=== PATIENT | female | born 1970 | race Caucasian/White ===

== ENCOUNTER 2016-09-13 14:11 | Emergency (ER) | payer OTHER ==
[~2016-09-13 14:11] MED LIST: ACIDOPHILUS1 CAP PO; ADVAIR 500-501 EACH INH; ADVAIR DISKUS1 UNIT INH; ALBUTEROL2.5 MG/3 M INH/SOL; CEFTIN 250 #201 PAC PO; CEFTIN500 M1 PO; CEPHALEXIN500 M1 PO; CEPHALEXIN500 MG PO; CIPRO500 M1 PO; CLARITIN10 MG PO; CLEOCIN HCL300 MG PO; CLINDAMYCIN HC150 MG PO; CLINDAMYCIN HY300 MG PO; CLINDAMYCIN150 MG PO; DIAMOX PO; DIAMOX125 MG PO; ENDOCET 325 MG-1 TA1 PO; ERYTHROMYCIN500 MG PO; FUROSEMIDE20 MG PO; FUROSEMIDE40 MG PO; K-DUR 20MEQ TA20 MEQ PO; KEFLEX500 MG PO; LASIX20 M1 PO; LASIX20 MG PO; LASIX40 M1 PO; LASIX40 MG PO; LASIX80 MG PO; LEVALBUTER0.63 MG/1 INH; LEVOFLOXACIN500 MG PO; LOTRIMIN1% TOP; MEDROL4 M2 PO; MEDROL4 MG PO; MOTRIN 600 MG600 MG PO; MOTRIN600 MG PO; MOTRIN800 MG PO; NYSTATIN15 G1 TOP; Oxygen NAS; PREDNISONE 10MG10 M1 PO; PREDNISONE 20MG20 MG PO; PREDNISONE10 MG PO; PREDNISONE50 MG PO; PRILOSEC 20MG C20 MG PO; PROVENTIL HFA6.7 GM INH; PROVENTIL0.09 MG/A1 INH; ROBITUSSIN COU237 ML PO; TRAMADOL HCL50 M1 PO; TYLENOL TAB 32325 MG PO; VESICARE 10MG10 MG PO; VESICARE10 MG PO; VICODIN5-300 PO; XARELTO STARTER20 MG PO; XARELTO20 M2 PO; XARELTO20 MG PO; ZOFRAN 4 MG TABL4 MG PO; [UNRECOGNIZED DRUG - REMARK] TOP
--- NOTE | 2016-09-13 14:21 | ED DYSPNEA/ASTHMA COMPLAINT ---
History of Present Illness General Chief Complaint: Wheezing/Asthma Stated Complaint: PT IS HAVING ASTHMA PROBLEM Source: patient, old records Exam Limitations: no limitations Vital Signs & Intake/Output Vital Signs & Intake/Output Vital Signs Date Time Temp Pulse Resp B/P Pulse O2 O2 Flow FiO2 Ox Delivery Rate 09/13 1643 92 Room Air 09/13 1613 Nasal 2.0L Cannula 09/13 1545 96.9 110 22 133/69 87 Room Air 09/13 1452 97 Nasal 2.5L Cannula 09/13 1417 97.9 116 22 102/69 90 Room Air Allergies Coded Allergies: cat dander (Severe, DYSPNEA 07/17/16) dog dander (DYSPNEA 07/17/16) grass pollen (DIFFICULTY BREATHING 07/17/16) mold (DYSPNEA 07/17/16) ragweed pollen (DYSPNEA 07/17/16) tree and shrub pollen (DIFFICULTY BREATHING 07/17/16) amoxicillin (From Augmentin) (ITCHY 07/17/16) ampicillin (LOW GRADE FEVER 07/17/16) cephalexin (From KEFLEX) (VOMITING 07/17/16) clavulanic acid (From Augmentin) (ITCHY 07/17/16) isoetharine (HEART RATE ELEVATION 07/17/16) Reconcile Medications Albuterol Sulfate (Proventil Hfa) 90 MCG HFA.AER.AD 2 PUFF INH Q4H PRN SHORTNESS OF BREATH (Reported) Albuterol Sulfate (Proventil) 2.5 MG/3 ML NEB 3 ML INH Q4P PRN SHORTNESS OF BREATH (Reported) Fluticasone/Salmeterol (Advair 500-50 Diskus) 500 MCG-50 MCG/DOSE BLST.W.DEV 1 PUF INH BID ASTHMA (Reported) Furosemide 20 MG TABLET 3 TAB PO DAILY PRN WATER PILL (Reported) Ibuprofen (Motrin 600 MG Tab) 600 MG TAB 1 TAB PO Q6 PRN pain with food Loratadine (Claritin) 10 MG TABLET 1 TAB PO DAILY ALLERGIES (Reported) Nystatin 15 GM CREAM..G. 1 LB TOP TID skin rash Omeprazole (Prilosec) 20 MG CAPSULE.DR 1 CAP PO PRN GI (Reported) Prednisone 20 MG TABLET 1 TAB PO DAILY STEROID (Reported) Prednisone 10 MG TABLET 1 TAB PO AD ASTHMA DAY1/DAY2 FOUR TABS DAY3/DAY4 THREE TABS DAY5/DAY6 TWO TABS DAY 7 ONE TAB Rivaroxaban (Xarelto) 20 MG TAB 1 TAB PO DAILY BLOOD THINNER (Reported) with food Solifenacin Succinate (Vesicare) 10 MG TAB 1 TAB PO DAILY BLADDER (Reported) Triage Note: PT STATES "MY ASTHMA IS ACTING UP" STATES SHE STARTED GETTING SOB AROUND LUNCHTIME. PT STATES CHEST FEELS TIGHT. Triage Nurses Notes Reviewed? yes Onset: Abrupt Duration: constant Timing: single episode today Severity: severe Activities at Onset: activity HPI: Patient is a 46-year-old female with a past medical history of significant asthma and morbid obesity, who presents to emergency room stating that for the past 2 days patient has noticed worsening chest tightness and asthma exacerbation however today when ambulating while at work here at [facility] she had acute onset a SHORTNESS of breath and chest tightness symptoms feel very similar to previous episodes of asthma exacerbation. Patient this morning took Advil at the treatment and had multiple episodes of inhaler without relief of symptoms. Patient currently is on a 20 mg dosing of prednisone previously prescribed in which she's been taking last 2 days. (MARTELL FLORES) Past History Travel History Traveled to [place] past 21 day No Medical History Any Pertinent Medical History? 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: bladder prolapse History of MRSA: No History of VRE: No History of CDIFF: No Surgical History Surgical History: open reduction and internal fixation of right tibia fracture Psychosocial History Who do you live with Patient and family Services at Home Oxygen What is your primary language Setswana Tobacco Use: Never used ETOH Use: occasional use Illicit Drug Use: denies illicit drug use Family History Family History, If Any: MOTHER FH: asthma FATHER FH: COPD (chronic obstructive pulmonary disease) FH: lung cancer FH: prostate cancer BROTHER Relation not specified for: FH: celiac disease FH: coronary artery disease FH: kidney disease Hx Contributory? No (MARTELL FLORES) Review of Systems Review of Systems Constitutional: Reports: no symptoms. EENTM: Reports: no symptoms. Respiratory: Reports: see HPI, short of breath. Denies: cough, sputum production, wheezing. Cardiovascular: Reports: no symptoms. GI: Reports: no symptoms. Genitourinary: Reports: no symptoms. Musculoskeletal: Reports: no symptoms. Skin: Reports: no symptoms. Neurological/Psychological: Reports: no symptoms. Hematologic/Endocrine: Reports: no symptoms. Immunologic/Allergic: Reports: no symptoms. All Other Systems: Reviewed and Negative (MARTELL FLORES) Physical Exam Physical Exam General Appearance: no apparent distress, obese Respiratory: chest non-tender, no respiratory distress, quiet respiration, decreased breath sounds Comments: HEENT: Normal EENT exam, extraocular motion intact, no nystagmus. Pupils equally round and reactive to light and accommodation. Nose is atraumatic. External auditory canal and Tympanic membranes clear. Pharynx normal. No swelling or edema. Neck: Supple, no lymphadenopathy, normal range of motion without pain or tenderness Back: Nontender, no CVA tenderness. Cardiovascular: Regular rate and rhythms no murmurs rubs or gallops, normal JVP Abdomen: Soft, nontender nondistended, no appreciable organomegaly. Normal bowel sounds. No ascites Extremity: No edema, no calf tenderness to palpation, normal and equal pulses. Neuro: Alert oriented x3, motor sensory normal, Skin: No appreciable rash on exposed skin, skin is warm and dry. Psych: Mood and affect is normal, memory and judgment is normal. Core Measures ACS in differential dx? Yes Severe Sepsis Present: No Septic Shock Present: No (MARTELL FLORES) Progress Differential Diagnosis: asthma, AMI, bronchitis, costochondritis, CHF, COPD, musculoskeletal pain, pericarditis, pulmonary embolism, pneumonia, pneumothorax, rib fracture, unstable angina Plan of Care: Current Medications Sig/Luca Start time Last Medication Dose Stop Time Status Admin Albuterol Sulfate 3 ML ONCE ONE 09/13 161 UNVr (Proventil) 09/13 1616 Patient currently is in no apparent distress no respiratory distress oxygen saturation was 97% on 3 L of oxygen. No wheezing noted on exam however patient did have chest tightness concerns on auscultation. Prednisone will be administered with nebulizer treatment. Patient denies any fever, chills, chest pain arm pain jaw pain nausea vomiting diaphoresis or exertional chest pain Patient does have dyspnea on exertion 09/13/2016 3:40:15 PM reevaluation patient patient states that she has significant improvement of her shortness of breath. Patient now will be ambulated with oxygen saturation 09/13/2016 4:18:48 PM after ambulation patient still had shortness of breath upon ambulation which another nebulizer treatment was administered Patient had significant improvement of aeration after second nebulizer treatment. Upon sitting patient noted to be 94% room air with no respiratory distress. Patient then ambulated noted to be 91% room air. I do not suspect patient have myocardial infarction or pulmonary embolism however this is of my differential. Patient will be treated for concerns of asthma exacerbation. (MARTELL FLORES) Diagnostic Imaging: Viewed by Me: Radiology Read. CXR Impression: no acute abnormality, no infiltrates, normal size heart Initial ED EKG: none Comments: PATIENT: JERRELL RUDD PRESENT AGE: 46 PATIENT ACCOUNT NO: [id number] : 68 LOCATION: [facility] ORDERING PHYSICIAN: MARTELL SALMERON SERVICE DATE: 09/13/16 EXAM TYPE: RAD - XRY-PORTABLE CHEST XRAY EXAMINATION: XR PORTABLE CHEST CLINICAL INFORMATION: Shortness of breath COMPARISON: 11/23/2015 TECHNIQUE: Portable view of the chest was obtained. FINDINGS: Low lung volumes. No consolidation, edema, or effusion. No pneumothorax. The cardiomediastinal silhouette is unchanged. No acute osseous abnormality. IMPRESSION: No acute pulmonary findings. (MARTELL FLORES) Departure Departure Disposition: HOME OR SELF CARE Condition: Stable Clinical Impression Primary Impression: Asthma Referrals: MYA KILLIAN,MARTELL Blake (PCP/Family) Additional Instructions: As discussed continue home nebulizer treatments and inhaler treatments for your symptoms. Begin the prescription of prednisone as directed for the full course. This prescription is waiting at [place] If symptoms worsen or if you develop a new concerning symptom return to emergency room immediately. Continue your CPAP machine as directed. Follow-up with your amphibious operations officer tomorrow if no better Departure Forms: Customer Survey General Discharge Information Prescriptions: Current Visit Scripts Prednisone 1 TAB PO AD #19 TAB DAY1/DAY2 FOUR TABS DAY3/DAY4 THREE TABS DAY5/DAY6 TWO TABS DAY 7 ONE TAB (MARTELL FLORES) PA/KEYBOARD ACTION ASSEMBLER Co-Sign Statement Statement: ED Attending supervision documentation- [] I saw and evaluated the patient. I have also reviewed all the pertinent lab results and diagnostic results. I agree with the findings and the plan of care as documented in the PA's/KEYBOARD ACTION ASSEMBLER's documentation. [x] I have reviewed the ED Record and agree with the PA's/KEYBOARD ACTION ASSEMBLER's documentation. [] Additions or exceptions (if any) to the PAs/KEYBOARD ACTION ASSEMBLER's note and plan are summarized below: [] (BOWEN NOLAND,ILANA Khanna) Critical Care Note Critical Care Note Critical Care Time: non-applicable (MARTELL FLORES)
[2016-09-13] MEDS ORDERED: CLARITIN10 M1 PO (14:33)
[2016-09-13] MEDS ORDERED: FUROSEMIDE20 M1 PO (14:34)
[2016-09-13] MEDS ORDERED: PREDNISONE20 M1 PO (14:36)
--- NOTE | 2016-09-13 15:25 | RADIOLOGY REPORT ---
EXAMINATION: XR PORTABLE CHEST CLINICAL INFORMATION: Shortness of breath COMPARISON: 11/23/2015 TECHNIQUE: Portable view of the chest was obtained. FINDINGS: Low lung volumes. No consolidation, edema, or effusion. No pneumothorax. The cardiomediastinal silhouette is unchanged. No acute osseous abnormality. IMPRESSION: No acute pulmonary findings.
[2016-09-13 15:45] VITALS: BP 133/69
[2016-09-13] MEDS ORDERED: PREDNISONE10 M2 PO (16:25)
== END 2016-09-13 16:43 ==
LOC: ERH 14:11
DX: J45.909 Unspecified asthma, uncomplicated (principal); R07.89 Other chest pain
CPT/HCPCS: 1263

== ENCOUNTER 2016-09-27 19:30 | Emergency (ER) | payer OTHER ==
[~2016-09-27] VITALS: Ht 142.2 cm; Wt 136.5 kg
[~2016-09-27 19:30] MED LIST changes: +CLARITIN10 M1 PO; +FUROSEMIDE20 M1 PO; +PREDNISONE10 M2 PO; +PREDNISONE20 M1 PO
--- NOTE | 2016-09-27 20:22 | ED DYSPNEA/ASTHMA COMPLAINT ---
History of Present Illness General Chief Complaint: Wheezing/Asthma Stated Complaint: ASTHMA PROBLEM Source: patient Exam Limitations: no limitations Vital Signs & Intake/Output Vital Signs & Intake/Output Vital Signs Date Time Temp Pulse Resp B/P Pulse O2 O2 Flow FiO2 Ox Delivery Rate 09/28 0011 98.0 90 20 108/70 98 Room Air 09/27 2240 97.8 103 22 110/72 97 Nasal 2.0L Cannula 09/27 2100 94 Nasal 2.0L Cannula 09/27 2000 95 Nasal 2.0L Cannula 09/27 1941 98.1 103 20 118/70 92 Room Air ED Intake and Output 09/28 0000 09/27 1200 Intake Total Output Total Balance Patient 301 lb Weight Allergies Coded Allergies: cat dander (Severe, DYSPNEA 07/17/16) dog dander (DYSPNEA 07/17/16) grass pollen (DIFFICULTY BREATHING 07/17/16) mold (DYSPNEA 07/17/16) ragweed pollen (DYSPNEA 07/17/16) tree and shrub pollen (DIFFICULTY BREATHING 07/17/16) amoxicillin (From Augmentin) (ITCHY 07/17/16) ampicillin (LOW GRADE FEVER 07/17/16) cephalexin (From KEFLEX) (VOMITING 07/17/16) clavulanic acid (From Augmentin) (ITCHY 07/17/16) isoetharine (HEART RATE ELEVATION 07/17/16) Reconcile Medications Albuterol Sulfate (Proventil Hfa) 90 MCG HFA.AER.AD 2 PUFF INH Q4H PRN SHORTNESS OF BREATH (Reported) Albuterol Sulfate (Proventil) 2.5 MG/3 ML NEB 3 ML INH Q4P PRN SHORTNESS OF BREATH (Reported) Fluticasone/Salmeterol (Advair 500-50 Diskus) 500 MCG-50 MCG/DOSE BLST.W.DEV 1 PUF INH BID ASTHMA (Reported) Furosemide 20 MG TABLET 3 TAB PO DAILY PRN WATER PILL (Reported) Ibuprofen (Motrin 600 MG Tab) 600 MG TAB 1 TAB PO Q6 PRN pain with food Loratadine (Claritin) 10 MG TABLET 1 TAB PO DAILY ALLERGIES (Reported) Nystatin 15 GM CREAM..G. 1 LB TOP TID skin rash Omeprazole (Prilosec) 20 MG CAPSULE.DR 1 CAP PO PRN GI (Reported) Prednisone 20 MG TABLET 1 TAB PO DAILY STEROID (Reported) Prednisone 10 MG TABLET 1 TAB PO AD ASTHMA DAY1/DAY2 FOUR TABS DAY3/DAY4 THREE TABS DAY5/DAY6 TWO TABS DAY 7 ONE TAB Rivaroxaban (Xarelto) 20 MG TAB 1 TAB PO DAILY BLOOD THINNER (Reported) with food Solifenacin Succinate (Vesicare) 10 MG TAB 1 TAB PO DAILY BLADDER (Reported) Triage Note: RECEIVED 46 YO FEMALE WITH HX OF ASTHMA, CURRENTLY TAKING PREDNISONE TAPERING DOSE. AT 30 MG/DAY X ONE WEEK. PT REPORTS ACUTE SOB. Triage Nurses Notes Reviewed? yes Onset: Gradual Duration: getting worse Timing: recent history Severity: moderate Activities at Onset: activity Prior Episodes/Possible Cause: frequent episodes, chronic episodes HPI: Patient is a 46-year-old female with past medical history of asthma and sleep apnea with CPAP at night who currently is on by mouth steroids which patient presents emergency room with concerns of worsening shortness of breath and wheezing unrelieved with at home medications of nebulizers and inhalers and steroids. Patient denies any chest pains fever chills arm pain jaw pain nausea vomiting leg swelling hemoptysis. Patient also has a history of leg swelling which she states to me that she is not compliant with her Lasix for a few weeks now where she is noted worsening leg swelling and shortness of breath. 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 Rodriguez to Dr. Fritz. Patient states that she gained approximately 6 pounds in the past week. Patient does have a history of PE with an IVC filter and currently is on XARELTO. (BERNARDA SALMERON,MARTELL) Past History Travel History Traveled to [place] past 21 day No Medical History Any Pertinent Medical History? 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 No (MARTELL FLORES) Review of Systems Review of Systems Constitutional: Reports: no symptoms. EENTM: Reports: no symptoms. Respiratory: Reports: see HPI, short of breath, wheezing. Denies: cough. Cardiovascular: Reports: see HPI, peripheral edema. Denies: chest pain, palpitations, syncope. GI: Reports: no symptoms. Genitourinary: Reports: no symptoms. Musculoskeletal: Reports: no symptoms. Skin: Reports: no symptoms. Neurological/Psychological: Reports: no symptoms. Hematologic/Endocrine: Reports: no symptoms. Immunologic/Allergic: Reports: no symptoms. All Other Systems: Reviewed and Negative (MARTELL FLORES) Physical Exam Physical Exam General Appearance: no apparent distress, obese Respiratory: chest non-tender, no respiratory distress, quiet respiration, decreased breath sounds Cardiovascular: regular rate/rhythm Comments: HEENT: Normal EENT exam, Neck: Supple, no lymphadenopathy, normal range of motion without pain or tenderness Back: Nontender, no CVA tenderness. Cardiovascular: Regular rate and rhythms no murmurs rubs or gallops, normal JVP Abdomen: Soft, nontender nondistended, no appreciable organomegaly. Normal bowel sounds. No ascites Extremity: +2 lower extremity nonpitting edema no calf tenderness to palpation, normal and equal pulses. Neuro: Alert oriented x3, motor sensory normal, Skin: No appreciable rash on exposed skin, skin is warm and dry. Psych: Mood and affect is normal, memory and judgment is normal. Core Measures ACS in differential dx? Yes Severe Sepsis Present: No Septic Shock Present: No (MARTELL FLORES) Progress Differential Diagnosis: asthma, AMI, bronchitis, costochondritis, CHF, COPD, musculoskeletal pain, pericarditis, pulmonary embolism, pneumonia, pneumothorax, rib fracture, unstable angina Plan of Care: Orders Procedure Date/time Status EKG 09/27 2136 Active TROPONIN LEVEL 09/27 2135 Complete COMPREHENSIVE METABOLIC PANEL 09/27 2135 Complete CBC WITHOUT DIFFERENTIAL 09/27 2135 Complete B-TYPE NATRIURETIC PEP (BNP) 09/27 2135 Complete Laboratory Tests 01/18/17 2238: Anion Gap 7, Estimated GFR > 60, BUN/Creatinine Ratio 32.0 H, Glucose 125 H, Calcium 8.9, Total Bilirubin 0.3, AST 14, ALT 20, Alkaline Phosphatase 68, Troponin I < 0.01, Ipu-O-Muwfghzspif Pept 44.8, Total Protein 6.3, Albumin 3.5, Globulin 2.8, Albumin/Globulin Ratio 1.3, CBC w Diff NO MAN DIFF REQ, RBC 4.86, MCV 88.3, MCH 28.6, RDW 13.9, MPV 7.5, Gran % 80.0 H, Lymphocytes % 12.7 L, Monocytes % 6.2, Eosinophils % 0.5, Basophils % 0.6, Absolute Granulocytes 7.4 H, Absolute Lymphocytes 1.2, Absolute Monocytes 0.6, Absolute Eosinophils 0, Absolute Basophils 0.1, PUBS MCHC 32.4 L Patient currently is in no respiratory distress and is 95% room air. Patient had decreased breath sounds however no wheezing and no crackles noted. Patient did get evaluated for her concerns of leg swelling and shortness of breath in which there are no signs of heart failure at this time however patient was strongly advised to be compliant with her Lasix medications and follow up with cardiology and she will comply. Patient on discharge looks well no apparent distress no respiratory distress and was 93% room air. Discussed disposition with Dr. Jean Baptiste who agrees (BERNARDA SALMERON,MARTELL) Diagnostic Imaging: Viewed by Me: Radiology Read. Radiology Impression: no acute abnormality Initial ED EKG: SINUS RHYTHM NOTED AT 99 BPM Comments: PATIENT: JERRELL RUDD PRESENT AGE: 46 PATIENT ACCOUNT NO: [id number] : 66 LOCATION: [facility] ORDERING PHYSICIAN: MARTELL SALMERON SERVICE DATE: 09/27/16 EXAM TYPE: RAD - XRY-PORTABLE CHEST XRAY EXAMINATION: XR PORTABLE CHEST CLINICAL INFORMATION: Shortness of breath, leg swelling COMPARISON: 09/13/2016 TECHNIQUE: Portable view of the chest was obtained. FINDINGS: The lungs are mildly hypoinflated. No focal consolidation is seen. No evidence of pneumothorax, significant pleural effusion, or overt pulmonary edema. The cardiomediastinal contour is unremarkable. No acute osseous findings are seen. IMPRESSION: No acute cardiopulmonary findings. (MARTELL FLORES) Departure Departure Disposition: HOME OR SELF CARE Condition: Stable Clinical Impression Primary Impression: Leg edema Secondary Impressions: Asthma Referrals: MYA KILLIAN,MARTELL Blake (PCP/Family) Additional Instructions: As discussed continue home medications ESPECIALLY your breathing treatments and your Lasix already prescribed. Follow-up with your panelboard tank pumper this week. If symptoms worsen return to emergency room. Continue using your CPAP machine at home Departure Forms: Customer Survey General Discharge Information (MARTELL FLORES) PA/GETTERER Co-Sign Statement Statement: ED Attending supervision documentation- [X] I saw and evaluated the patient. I have also reviewed all the pertinent lab results and diagnostic results. I agree with the findings and the plan of care as documented in the PA's/GETTERER's documentation. [X] I have reviewed the ED Record and agree with the PA's/GETTERER's documentation. [] Additions or exceptions (if any) to the PAs/GETTERER's note and plan are summarized below: [] (REJI KILLIAN,TRAVIS) PA/GETTERER Co-Sign Statement Statement: ED Attending supervision documentation- [] I saw and evaluated the patient. I have also reviewed all the pertinent lab results and diagnostic results. I agree with the findings and the plan of care as documented in the PA's/GETTERER's documentation. [x] I have reviewed the ED Record and agree with the PA's/GETTERER's documentation. [] Additions or exceptions (if any) to the PAs/GETTERER's note and plan are summarized below: [] (RENÉ KILLIAN,SARI Ron) Critical Care Note Critical Care Note Critical Care Time: non-applicable (MARTELL FLORES)
[2016-09-27 22:49] LABS: ABSOLUTE BASOPHIL COUNT 0.1 /CUMM (0.0-0.2); ABSOLUTE EOSINOPHIL COUNT 0 /CUMM (0.0-0.7); ABSOLUTE GRANULOCYTE CT 7.4 /CUMM (1.4-6.5); ABSOLUTE LYMPH COUNT 1.2 /CUMM (1.2-3.4); ABSOLUTE MONOCYTE COUNT 0.6 /CUMM (0.10-0.60); BASOPHIL % 0.6 % (0.0-2.0); EOSINOPHIL % 0.5 % (0-5); HEMATOCRIT 42.9 % (37-47); MEAN CORPUSCULAR HGB 28.6 PG (27.0-31.0); MEAN CORPUSCULAR HGB CONC 32.4 G/DL (33.0-37.0); MEAN CORPUSCULAR VOLUME 88.3 FL (81.0-99.0); MEAN PLATELET VOLUME 7.5 FL (7.4-10.4); PLATELET COUNT 205 /CUMM (130-400); RBC DISTRIBUTION WIDTH 13.9 % (11.5-14.5); RED BLOOD CELL CT 4.86 /CUMM (4.20-5.40); WHITE BLOOD CELL COUNT 9.3 /CUMM (4.8-10.8)
--- NOTE | 2016-09-27 23:38 | RADIOLOGY REPORT ---
EXAMINATION: XR PORTABLE CHEST CLINICAL INFORMATION: Shortness of breath, leg swelling COMPARISON: 09/13/2016 TECHNIQUE: Portable view of the chest was obtained. FINDINGS: The lungs are mildly hypoinflated. No focal consolidation is seen. No evidence of pneumothorax, significant pleural effusion, or overt pulmonary edema. The cardiomediastinal contour is unremarkable. No acute osseous findings are seen. IMPRESSION: No acute cardiopulmonary findings.
[2016-09-28 00:11] VITALS: BP 108/70
== END 2016-09-28 00:25 ==
LOC: ERH 19:30
PROVIDERS: Physician Assistant
DX: R60.9 Edema, unspecified (principal); J45.909 Unspecified asthma, uncomplicated
CPT/HCPCS: 1263; 93005; 93010

== ENCOUNTER 2016-11-27 21:57 | Inpatient (IN) | payer OTHER ==
[~2016-11-27] VITALS: Ht 142.2 cm; Wt 140.4 kg
--- NOTE | 2016-11-27 22:00 | NUR ---
PT SPO2 91% VIA RA HR 120
--- NOTE | 2016-11-27 22:05 | NUR ---
PT TO ED FOR ASTHMA EXACERBATION, REPORTING SHE HAS BEEN USING NEB, PREDNISONE AND ALLERGY MEDS AT HOME WITH NO RELIEF. ALSO REPORTING SHE HAS GAINED "ABOUT 6LBS THIS WEEK BECAUSE I HAVEN'T BEEN TAKING MY WATER PILLS" PT ABLE TO SPEAK IN FULL SENTENCES, REPORTING SHE FEELS FINE SITTING DOWN "BUT THE SECOND I DO ANYTHING I GET OUT OF BREATH"
--- NOTE | 2016-11-27 22:26 | ED DYSPNEA/ASTHMA COMPLAINT ---
History of Present Illness General Chief Complaint: Wheezing/Asthma Stated Complaint: DIFF BREATHING Source: patient, family Exam Limitations: no limitations Vital Signs & Intake/Output Vital Signs & Intake/Output Vital Signs Date Time Temp Pulse Resp B/P Pulse O2 O2 Flow FiO2 Ox Delivery Rate 11/28 0109 93 Nasal 2.0L Cannula 11/27 2236 93 Nasal 3.0L Cannula 11/27 2229 88 Room Air 11/27 2206 97.3 104 20 132/77 92 Room Air ED Intake and Output 11/28 0000 11/27 1200 Intake Total 0 Output Total Balance 0 Intake, Oral 0 Patient 306 lb Weight Allergies Coded Allergies: cat dander (Severe, DYSPNEA 07/17/16) dog dander (DYSPNEA 07/17/16) grass pollen (DIFFICULTY BREATHING 07/17/16) mold (DYSPNEA 07/17/16) ragweed pollen (DYSPNEA 07/17/16) tree and shrub pollen (DIFFICULTY BREATHING 07/17/16) amoxicillin (From Augmentin) (ITCHY 07/17/16) ampicillin (LOW GRADE FEVER 07/17/16) cephalexin (From KEFLEX) (VOMITING 07/17/16) clavulanic acid (From Augmentin) (ITCHY 07/17/16) isoetharine (HEART RATE ELEVATION 07/17/16) Reconcile Medications Albuterol Sulfate (Proventil Hfa) 90 MCG HFA.AER.AD 2 PUF INH Q4 PRN SOB ( Reported) Albuterol Sulfate 2.5 MG/3 ML (0.083 %) VIAL.NEB 1 Vial INH/BRANDON Q4P PRN SOB ( Reported) Fluticasone/Salmeterol (Advair 500-50 Diskus) 500 MCG-50 MCG/DOSE BLST.W.DEV 1 PUF INH BID ASTHMA (Reported) Furosemide 20 MG TABLET 3 TAB PO DAILY PRN WATER PILL (Reported) Loratadine (Claritin) 10 MG TABLET 1 TAB PO DAILY ALLERGIES (Reported) Prednisone 20 MG TABLET 1 TAB PO PRN STEROID (Reported) Rivaroxaban (Xarelto) 20 MG TABLET 1 TAB PO DAILY BLOOD THINNER (Reported) with food Solifenacin Succinate (Vesicare) 10 MG TABLET 1 TAB PO AD BLADDER (Reported) Triage Note: PT TO ED FOR ASTHMA EXACERBATION, REPORTING SHE HAS BEEN USING NEB, PREDNISONE AND ALLERGY MEDS AT HOME WITH NO RELIEF. ALSO REPORTING SHE HAS GAINED "ABOUT 6LBS THIS WEEK BECAUSE I HAVEN'T BEEN TAKING MY WATER PILLS" Triage Nurses Notes Reviewed? yes Onset: Gradual Duration: day(s):, waxing and waning Timing: recent history Severity: mild, moderate Activities at Onset: none Prior Episodes/Possible Cause: frequent episodes Modifying Factors: Improves With: rest, other (better w/nebs). Associated Symptoms: cough, wheezing HPI: 46-year-old woman history of asthma presents with 2-3 days history of cough and wheezing. She has been giving herself albuterol with only moderate effect. She took prednisone 20 mg earlier today without great effect. This evening she felt like her wheezing worsened. She has a dry cough without sputum. She has no chest pain headache fever or chills lower extremity swelling or orthopnea. Past History Travel History Traveled to [place] past 21 day No Medical History Any Pertinent Medical History? 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: bladder prolapse History of MRSA: No History of VRE: No History of CDIFF: No Surgical History Surgical History: open reduction and internal fixation of right tibia fracture Psychosocial History Who do you live with Patient and family Services at Home Oxygen What is your primary language Macedonian Tobacco Use: Never used ETOH Use: denies use Illicit Drug Use: denies illicit drug use Family History Family History, If Any: MOTHER FH: asthma FATHER FH: COPD (chronic obstructive pulmonary disease) FH: lung cancer FH: prostate cancer BROTHER Relation not specified for: FH: celiac disease FH: coronary artery disease FH: kidney disease Hx Contributory? No Review of Systems Review of Systems Constitutional: Reports: no symptoms. EENTM: Reports: no symptoms. Respiratory: Reports: no symptoms. Cardiovascular: Reports: no symptoms. GI: Reports: no symptoms. Genitourinary: Reports: no symptoms. Musculoskeletal: Reports: no symptoms. Skin: Reports: no symptoms. Neurological/Psychological: Reports: no symptoms. Hematologic/Endocrine: Reports: no symptoms. Immunologic/Allergic: Reports: no symptoms. All Other Systems: Reviewed and Negative Physical Exam Physical Exam General Appearance: well developed/nourished, mild distress Head: atraumatic, normal appearance Eyes: Bilateral: normal appearance. Ears, Nose, Throat: normal pharynx, normal ENT inspection, hearing grossly normal Neck: normal inspection, supple, full range of motion Respiratory: decreased breath sounds, wheezing Cardiovascular: regular rate/rhythm Gastrointestinal: normal bowel sounds, soft, non-tender Extremities: normal inspection, trace edema, symmetric Neurologic/Psych: no motor/sensory deficits, awake, alert, oriented x 3 Skin: intact, normal color, warm/dry Core Measures ACS in differential dx? No Severe Sepsis Present: No Septic Shock Present: No Progress Differential Diagnosis: asthma, bronchitis, CHF, COPD Plan of Care: Orders Procedure Date/time Status Regular Diet 11/28 B Active MAGNESIUM 11/28 0600 Active BASIC ELECTROLYTES PLUS BUN&CR 11/28 06 Active TRC EVALUATION (GEN) 11/28 0321 Active Saline Lock 11/28 031 Active Pathway - chart 11/28 031 Active House Staff 11/28 0317 Active Patient Data 11/28 0311 Active Saline Lock 11/28 0028 Active Misc Message 11/28 0028 Active ED Holding Orders 11/28 0028 Active Vital Signs 11/28 0028 Active Code Status 11/28 0028 Active Admit to inpatient 11/28 0027 Active TROPONIN LEVEL 11/28 0027 Complete COMPREHENSIVE METABOLIC PANEL 11/28 0027 Complete CBC WITHOUT DIFFERENTIAL 11/28 0027 Complete EKG 11/28 0027 Active Current Medications Sig/Luca Start time Last Medication Dose Stop Time Status Admin Enoxaparin Sodium 40 MG DAILY 11/28 1000 UNVr (Lovenox) Methylprednisolone 40 MG Q8 11/28 0600 UNVr (Solumedrol) Albuterol Sulfate 3 ML Q4H PRN 11/28 0330 UNVr (Proventil) Acetaminophen 650 MG Q6P PRN 11/28 0315 UNVr (Tylenol) Acetaminophen/ 1 TAB Q6P PRN 11/28 0315 UNVr Hydrocodone Bitart (Vicodin) Diphenhydramine HCl 25 MG Q6P PRN 11/28 0315 UNVr (Benadryl) Morphine Sulfate 2 MG Q4P PRN 11/28 031 UNVr (Morphine) Ondansetron HCl 4 MG Q6P PRN 11/28 0315 UNVr (Zofran) Laboratory Tests 11/28/16 0055: Anion Gap 3 L, Estimated GFR > 60, BUN/Creatinine Ratio 28.6 H, Glucose 136 H , Calcium 9.2, Total Bilirubin 0.3, AST 18, ALT 36, Alkaline Phosphatase 71, Troponin I < 0.01, Total Protein 6.2 L, Albumin 3.5, Globulin 2.7, Albumin/ Globulin Ratio 1.3, CBC w Diff NO MAN DIFF REQ, RBC 4.88, MCV 86.1, MCH 27.9, RDW 14.5, MPV 7.5, Gran % 74.1, Lymphocytes % 16.8 L, Monocytes % 7.4, Eosinophils % 0.7, Basophils % 1.0, Absolute Granulocytes 8.1 H, Absolute Lymphocytes 1.8, Absolute Monocytes 0.8 H, Absolute Eosinophils 0.1, Absolute Basophils 0.1, PUBS MCHC 32.4 L Diagnostic Imaging: Viewed by Me: Radiology Read. Discussed w/RAD: Radiology Read. CXR Impression: no acute abnormality, no infiltrates, normal size heart, normal mediastinum Initial ED EKG: none Departure Departure Disposition: HOME OR SELF CARE Condition: Stable Clinical Impression Primary Impression: Asthma exacerbation Referrals: MYA KILLIAN,MARTELL Blake (PCP/Family) Departure Forms: Customer Survey General Discharge Information Comments 11/28/16, 0:45.... pt with 02 sat 86-87% on room air... when sleeping, pt's sat dropped to mid 70's. While ambulating, pt dropped 02 sat to 79%. Admission Note Spoke With: SANTANA DALY MD Documentation of Exam: Documentation of any treatments & extenuating circumstances including Concerns Regarding Discharge (functional status, medication knowledge or non-compliance, living conditions, etc.) that warrant an admission rather than observation: pt with brittle asthma, now with 02 requirement, will require steroids, nebs, 02 supplementation... Pt stable for gen med. Critical Care Note Critical Care Note Critical Care Time: non-applicable
[2016-11-27] MEDS ORDERED: PREDNISONE20 M1 PO (22:35)
--- NOTE | 2016-11-27 23:20 | NUR ---
PT MEDICATED WITH DECADROM 8MG PO WITH APPLE JUICE
--- NOTE | 2016-11-28 00:26 | NUR ---
PER MD MERRITT, PATIENT O2:88%RA, AMBULATING W/ PA STUDENT W/ PORTABLE O2 MONITOR AT THIS TIME.
--- NOTE | 2016-11-28 00:41 | NUR ---
O2:79% RA DURING AMBULATION PER PA STUDENT. POC: ADMIT TO HOSPITAL. EKG IN PROGRESS.
--- NOTE | 2016-11-28 00:54 | NUR ---
RESP AWARE OF TX ORDER.
--- NOTE | 2016-11-28 00:55 | NUR ---
PAGED FOR RX @ THIS TIME
--- NOTE | 2016-11-28 00:58 | NUR ---
LABS SENT (1 LAV, 1 SST)
[2016-11-28 01:09] LABS: ABSOLUTE BASOPHIL COUNT 0.1 /CUMM (0.0-0.2); ABSOLUTE EOSINOPHIL COUNT 0.1 /CUMM (0.0-0.7); ABSOLUTE GRANULOCYTE CT 8.1 /CUMM (1.4-6.5); ABSOLUTE LYMPH COUNT 1.8 /CUMM (1.2-3.4); ABSOLUTE MONOCYTE COUNT 0.8 /CUMM (0.10-0.60); EOSINOPHIL % 0.7 % (0-5); GRANULOCYTE % 74.1 % (42.2-75.2); MEAN CORPUSCULAR HGB 27.9 PG (27.0-31.0); MEAN CORPUSCULAR HGB CONC 32.4 G/DL (33.0-37.0); MEAN CORPUSCULAR VOLUME 86.1 FL (81.0-99.0); MEAN PLATELET VOLUME 7.5 FL (7.4-10.4); PLATELET COUNT 205 /CUMM (130-400); RBC DISTRIBUTION WIDTH 14.5 % (11.5-14.5); RED BLOOD CELL CT 4.88 /CUMM (4.20-5.40); WHITE BLOOD CELL COUNT 10.9 /CUMM (4.8-10.8)
--- NOTE | 2016-11-28 01:52 | RADIOLOGY REPORT ---
EXAMINATION: XR PORTABLE CHEST CLINICAL INFORMATION: Dyspnea. COMPARISON: Chest x-ray 09/27/2016. TECHNIQUE: Portable AP view of the chest was obtained. 12:51 AM FINDINGS: Exam limited by body habitus and portable technique. The projection is apical lordotic. No pulmonary vascular congestion. No focal consolidation. No large pleural effusion. Cardiac and mediastinal contours are normal. IMPRESSION: No acute abnormality the chest.
--- NOTE | 2016-11-28 02:29 | NUR ---
CONTINUE TO AWAIT ADMISSION PROCESS.
--- NOTE | 2016-11-28 03:15 | History & Physical ---
ANNEL KILLIAN,LIZA 11/28/16 0315: General Information and HPI MD Statement: I have seen and personally examined LORIN RUDD and documented this H&P. The patient is a 46 year old F who presented with a patient stated chief complaint of [SOB]. Source of Information: patient, old records Exam Limitations: no limitations History of Present Illness: This is a 46 yo female with PMH of asthma, SCOTT on CPAP (noncompliant), GERD, celiac, DM diet controlled, chronic LE edema, obesity, recurrent cellulitis, DVT and PE on Xarelto, who comes in with CC of SOB. Pt states that she started feeling SOB about two weeks ago. It was slight at that time and pt attributed it to allergies. However, it got progressively worse until today she felt like she was so SOB she wasn't able to continue her daily activities. She states that she feels "fine" at rest but even slight exertion causes her dyspnea. Pt took her allergy pills, 20mg of prednisone, and albuterol with no change in symptoms. She states that she has not been taking her lasix for the past week and has noted a 5lb weight gain. Denies any chest pain, cough, sore throat, lower extremity swelling, worsening orthopnea, fever, new rash,travel or sick contacts. Pt denies any hx smoking, drugs or etoh. Pt got nebs in ED but was found to have ambulatory sats of 79%; as such she was admitted. Allergies/Medications Allergies: Coded Allergies: cat dander (Severe, DYSPNEA 07/17/16) dog dander (DYSPNEA 07/17/16) grass pollen (DIFFICULTY BREATHING 07/17/16) mold (DYSPNEA 07/17/16) ragweed pollen (DYSPNEA 07/17/16) tree and shrub pollen (DIFFICULTY BREATHING 07/17/16) amoxicillin (From Augmentin) (ITCHY 07/17/16) ampicillin (LOW GRADE FEVER 07/17/16) cephalexin (From KEFLEX) (VOMITING 07/17/16) clavulanic acid (From Augmentin) (ITCHY 07/17/16) isoetharine (HEART RATE ELEVATION 07/17/16) Home Med list Albuterol Sulfate (Proventil Hfa) 90 MCG HFA.AER.AD 2 PUF INH Q4 PRN SOB ( Reported) Albuterol Sulfate 2.5 MG/3 ML (0.083 %) VIAL.NEB 1 Vial INH/BRANDON Q4P PRN SOB ( Reported) Fluticasone/Salmeterol (Advair 500-50 Diskus) 500 MCG-50 MCG/DOSE BLST.W.DEV 1 PUF INH BID ASTHMA (Reported) Furosemide 20 MG TABLET 3 TAB PO DAILY PRN WATER PILL (Reported) Loratadine (Claritin) 10 MG TABLET 1 TAB PO DAILY ALLERGIES (Reported) Prednisone 20 MG TABLET 1 TAB PO PRN STEROID (Reported) Rivaroxaban (Xarelto) 20 MG TABLET 1 TAB PO DAILY BLOOD THINNER (Reported) with food Solifenacin Succinate (Vesicare) 10 MG TABLET 1 TAB PO AD BLADDER (Reported) Past History Travel History Traveled to [place] past 21 day No Medical History Neurological: NONE EENT: NONE Cardiovascular: VEIN STRIPPING Respiratory: asthma, obstructive sleep apnea, pulmonary embolism (- non compliants with CPAP), CPAP Gastrointestinal: GERD, umbilical hernia, CELIAC DISEASE Hepatic: NONE Renal: nephrolithiasis Musculoskeletal: fracture, TIBIA CELLULITIS Psychiatric: NONE Endocrine: diabetes ( - diet controlled), hypothyroidism, obesity (- morbid), celiac disease Blood Disorders: DVT 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: bladder prolapse History of MRSA: No History of VRE: No History of CDIFF: No Surgical History Surgical History: open reduction and internal fixation of right tibia fracture Past Family/Social History Family History Relations & Conditions if any MOTHER FH: asthma FATHER FH: COPD (chronic obstructive pulmonary disease) FH: lung cancer FH: prostate cancer BROTHER Relation not specified for: FH: celiac disease FH: coronary artery disease FH: kidney disease Psychosocial History Services at Home: Oxygen Primary Language: Bulgarian Smoking Status: Never Smoked ETOH Use: denies use Illicit Drug Use: denies illicit drug use Functional Ability ADLs Independent: dressing, eating, toileting, bathing. Ambulation: independent IADLs Independent: shopping, housework, finances, food prep, telephone, transportation , medication admin. Review of Systems Review of Systems Constitutional: Denies: chills, diaphoresis, fever, malaise, weakness. EENTM: Reports: no symptoms. Cardiovascular: Reports: chest pain, orthopena. Denies: edema, palpitations, peripheral edema. Respiratory: Reports: orthopnea, short of breath, wheezing. Denies: cough, sputum production , stridor. GI: Reports: no symptoms. Genitourinary: Reports: no symptoms. Musculoskeletal: Reports: no symptoms. Skin: Reports: erythema. Neurological/Psychological: Reports: no symptoms. Exam & Diagnostic Data Last 24 Hrs of Vital Signs/I&O Vital Signs Date Time Temp Pulse Resp B/P Pulse O2 O2 Flow FiO2 Ox Delivery Rate 11/28 0456 79 93 11/28 0408 97.6 90 22 153/81 93 Nasal 2.0L Cannula 11/28 0109 93 Nasal 2.0L Cannula 11/27 223 93 Nasal 3.0L Cannula 11/27 223 88 Room Air 11/27 2206 97.3 104 20 132/77 92 Room Air Intake & Output 11/28 0800 11/28 0000 11/27 1600 Intake Total 0 Output Total Balance 0 Intake, Oral 0 Patient 138.799 kg Weight Physical Exam General Appearance Alert, Oriented X3, Cooperative, Mild Distress Skin No Significant Lesion HEENT Atraumatic, PERRLA, EOMI Neck Supple Cardiovascular Regular Rate, Normal S1, Normal S2, No Murmurs Lungs decreased air movement; with no wheezing, rubs or rhonchi Abdomen Normal Bowel Sounds, Soft, No Tenderness Neurological Normal Gait, Normal Speech, Normal Tone Extremities erythema in bilat le; stable. Last 24 Hrs of Labs/Neftali: Laboratory Tests 11/28/16 0055: Anion Gap 3 L, Estimated GFR > 60, BUN/Creatinine Ratio 28.6 H, Glucose 136 H , Calcium 9.2, Total Bilirubin 0.3, AST 18, ALT 36, Alkaline Phosphatase 71, Troponin I < 0.01, Total Protein 6.2 L, Albumin 3.5, Globulin 2.7, Albumin/ Globulin Ratio 1.3, CBC w Diff NO MAN DIFF REQ, RBC 4.88, MCV 86.1, MCH 27.9, RDW 14.5, MPV 7.5, Gran % 74.1, Lymphocytes % 16.8 L, Monocytes % 7.4, Eosinophils % 0.7, Basophils % 1.0, Absolute Granulocytes 8.1 H, Absolute Lymphocytes 1.8, Absolute Monocytes 0.8 H, Absolute Eosinophils 0.1, Absolute Basophils 0.1, PUBS MCHC 32.4 L Assessment/Plan Assessment: This is a 46 yo female with PMH of asthma, SCOTT on CPAP, hx of DVT and PE on Xarelto, GERD, DM that is diet controlled, chronic LE edema, obesity, with CC of SOB. Work up showed cxr without any evidence of volume overload. Trended treatments in the ED, patient still was found to be satting at 79 on ambulation. On room air she was around 87. Patient admitted to general medicine for further management of her asthma. Plan Asthma exacerbation: Pt has history of SCOTT, obesity hypoventilation, and asthma. She did not improve on home regimen of Advair, and albuterol. She does have history of CHF, chest x-ray does not show evidence of volume overload. She does not have any lower extremity edema, she is not describing worsening orthopnea. However, patient is noncompliant with her Lasix regimen. At this time we'll continue to treat her shortness of breath secondary asthma and SOCTT. Note that patient has had previous admission where she required BiPAP for hypercarbic rest are failure. * TRC * Continue home Lasix regimen of 20 mg 3 times a day * Claritin * IV Solu-Medrol * Shortness of breath does not improve consider ABG SCOTT: Continue with CPAP history of DVT/PE: * Continue Xarelto Diabetes: Patient is managed with diet control without pharmacologic intervention. * Diabetic diet Full code Diabetic diet Chemical DVT prophylaxis As Ranked By This Provider Problem List: 1. Asthma Core Measures/Miscellaneous Acute Coronary Syndrome ACS Diagnosis: No Cerebrovascular Accident CVA/TIA Diagnosis: No Congestive Heart Failure CHF Diagnosis: No Venous Thromboembolism VTE Risk Factors: Acute medical illness, Age > 40 No [facility] VTE prophylaxis d/t: No contraindications No VTE Pharm Prophylaxis d/t: No contraindications VTE Diagnosis: No VTE Type: NONE VTE Confirmed by (Test): NONE Severe Sepsis Severe Sepsis Present: No Septic Shock Septic Shock Present: No Miscellaneous Documentation Attending Case Discussed With: SANTANA DALY MD Primary Care Physician: MARTELL ROQUE MD Patient sees these Specialists unknown Level of Patient Care: General Medicine GUY DALY MD 11/28/16 0522: Attending Review Statement Attending Statement Attending MD Statement: examined this patient, discuss w/resident/PA/PLASTERER MAINTENANCE, agreed w/resident/PA/PLASTERER MAINTENANCE Attending Assessment/Plan: 46 yo morbidly obese female with h/o PE and DVT on Xarelto s/p IVC filter, T2DM controlled by diet, SCOTT on CPAP, chronic hypercarbia, Pickwickian syndrome, moderate persistent asthma, GERD, chronic diastolic heart failure, with multiple admissions in the past year for cellulitis and LE edema, is here with 2 week h/o exertional dyspnea. No sore throat, cough, phlegm, fever or chills. No sick contacts. She also reports a weight gain of 6-8 lbs as she has not been taking the lasix over the past 1 week. She works in [employer]. In the ER, she received duonebs and decadron. Afebrile, tachycardic, sats 88% RA --> 93% on 2L. However, sats dropped to 79% RA during ambulation. Chest b/l reduced air entry, scattered expiratory wheeze, Bilateral 1+ pitting edema. Labs : WBC 10.9, bicarb 36, BUN 20, trop neg, CXR neg. EKG: Sinus tachycardia. 1. Hypoxia, asthma exacerbation. GM admit, TRC nebs, IV steroids, Pulm consult ( Dr. Pepe). Keep O2 sats > 92%. She does not appear to be in decompensated heart failure, will restart her home dose of lasix 20 mg TID, monitor I/O's. DVT ppx Xarelto. Full code. ANDRES KILLIAN,DAQUAN 11/27/16 0556: Resident Review Statement Resident Statement: examined this patient, discussed with internet assessor, agreed with internet assessor, discussed with family, reviewed EMR data (avail), discussed with nursing , discussed with case mgmt, reviewed images, amended to note Other Findings: Lorin is a 46-year-old woman with medical history of SCOTT on CPAP obesity. Hypothyroidism, diet-controlled diabetes, pulmonary embolus on xeralto presents with severe asthma exacerbation not responding to albuterol nebulizer treatments. She was hypoxic with oxygen saturation 80s. In the ER she received 8 mg dexamethasone. At present vital signs are stable. She is 95% on 2 L of oxygen. We will start methylprednisolone 40 mg every 8 hours, nebulized albuterol every 4 hours when necessary. Monitor peak expiratory flows. Continues anticoagulation. Full Code
--- NOTE | 2016-11-28 04:10 | NUR ---
REPORT CALLED TO SAMIR BOBBY, TO GO TO ROOM 205.
--- NOTE | 2016-11-28 04:23 | Admission Certification ---
Admission Certification Certification Statement - As attending physician, I certify that at the time of - admission, based on clinical presentation, severity of - symptoms, need for further diagnostic testing and - therapeutic interventions, and risk of adverse outcomes - without in-hospital treatment, in my clinical assessment, - this patient requires an acute hospital stay for a minimum - of two nights or longer. I have also considered psychsocial - factors such as support system, advanced age, financial - issues, cognitive issues, and failed out-patient treatments, - past re-admission history, safety of patient, and lack of - compliance as applicable. Specific rationale supporting this admission is: Hypoxia, asthma exacerbation.
[2016-11-28 04:30] VITALS: BP 137/79
--- NOTE | 2016-11-28 05:53 | NUR ---
PT ARRIVED TO FLOOR VIA STRETCHER FROM ED. VSS: BP 137/79, HR 93, 02 93% ON 2L TEMP 96.5, RR 22. PT EXPERIENCING EXERTIONAL SOB WHILE WALKING FROM STRETCHER T0 BED. IST GIVEN AND SHOWN PT HOW TO USE IT. PT C/O OF HEADACHE TYLENOL GIVEN. BS 146. RESPIRATORY NOTIFIED TO PUT PT ON CPAP MACHINE. SKIN INTACT, +1 EDEMA NOTED TO BLLE, EXCORIATION TO BREASTS BUT PT STATES THIS IS NORMAL FOR HER. LUNGS DIMINSHED THROUGHOUT. PT SHOWN HOW TO USE CALL CROSS SYSTEM, INFO PACKET GIVEN. NO FURTHER ORDERS AT THIS TIME. WILL CONTINUE TO MONITOR.
[2016-11-28 07:45] VITALS: BP 140/90
--- NOTE | 2016-11-28 07:45 | NUR ---
NURSING NOTE: ASSUMED CARE OF PT. DURING BEDSIDE REPORT PT DIFFICULT TO AROSE. PT OPENS EYES TO STERNAL RUB THEN CLOSES EYES, NOT ANSWERING QUESTIONS, O2 SAT 74% ON CPAP. RAPID REPSONSE CALLED. SEE RAPID RESPONSE DOCUMENTATION. CONT TO MONITOR
--- NOTE | 2016-11-28 08:02 | NUR ---
NURSING NOTE: PT AWAKE, A/OX3 AT THIS TIME, REMAINS ON CPAP 94% AT THIS TIME. PT REFUSING ABG AT THIS TIME. 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 FSG 163. R.T AT BEDSIDE, PT STATES "IM OK". CONT TO MONITOR.
--- NOTE | 2016-11-28 08:08 | NUR ---
NURSING NPTE: PT PLACED ON 4L NC BY R.T. O2 SATS 94%. PT AWAKE, A/OX3, FULLY ENGAGED IN COVERSATION, CONT TO MONITOR.
--- NOTE | 2016-11-28 08:09 | Event Note ---
Event Note Event Note: Around 7:45 AM, patient was noted to be lethargic, opening eyes briefly to sternal rub only and unable to answer questions. Her oxygen saturation was 74% on CPAP. Rapid response was called. Patient woke up without intervention. She was awake, alert and oriented x 3. Her oxygen saturation went up to 94% on CPAP. She refused the STAT ABG that had been ordered. She was subsequently weaned down to 4 L NC, continuing to sat at 94%. She was fully awake and engaging in conversation.
--- NOTE | 2016-11-28 09:00 | NUR ---
NURSING NOTE: PT REMAINS AWAKE, A.OX3, AMBULATED TO BR INDEP, WASHED UP IN BR, SITTING IN RECLINER EATING BREAKFAST, DENIES COMPLAINTS.
--- NOTE | 2016-11-28 10:27 | Cons- Pulmonary ---
General Information and HPI Consulting Request Date of Consult: 11/28/16 Requested By: med team History of Present Illness: This is a 46 yo female with PMH of asthma, SCOTT on CPAP (noncompliant), GERD, celiac, DM diet controlled, chronic LE edema, obesity, recurrent cellulitis, DVT and PE on Xarelto, who comes in with CC of SOB. Pt states that she started feeling SOB about two weeks ago. It was slight at that time and pt attributed it to allergies. However, it got progressively worse until today she felt like she was so SOB she wasn't able to continue her daily activities. She states that she feels "fine" at rest but even slight exertion causes her dyspnea. Pt took her allergy pills, 20mg of prednisone, and albuterol with no change in symptoms. She states that she has not been taking her lasix for the past week and has noted a 5lb weight gain. Denies any chest pain, cough, sore throat, lower extremity swelling, worsening orthopnea, fever, new rash,travel or sick contacts. Pt denies any hx smoking, drugs or etoh. Pt got nebs in ED but was found to have ambulatory sats of 79%; as such she was admitted Review of Systems Review of Systems Constitutional: Denies: chills, diaphoresis, fever, malaise, weakness. EENTM: Reports: no symptoms. Cardiovascular: Reports: chest pain, orthopena. Denies: edema, palpitations, peripheral edema. Respiratory: Reports: orthopnea, short of breath, wheezing. Denies: cough, sputum production , stridor. GI: Reports: no symptoms. Genitourinary: Reports: no symptoms. Musculoskeletal: Reports: no symptoms. Skin: Reports: erythema. Neurological/Psychological: Reports: no symptoms. Allergies/Medications Allergies: Coded Allergies: cat dander (Severe, DYSPNEA 07/17/16) dog dander (DYSPNEA 07/17/16) grass pollen (DIFFICULTY BREATHING 07/17/16) mold (DYSPNEA 07/17/16) ragweed pollen (DYSPNEA 07/17/16) tree and shrub pollen (DIFFICULTY BREATHING 07/17/16) amoxicillin (From Augmentin) (ITCHY 07/17/16) ampicillin (LOW GRADE FEVER 07/17/16) cephalexin (From KEFLEX) (VOMITING 07/17/16) clavulanic acid (From Augmentin) (ITCHY 07/17/16) isoetharine (HEART RATE ELEVATION 07/17/16) Home Med List: Albuterol Sulfate (Proventil Hfa) 90 MCG HFA.AER.AD 2 PUF INH Q4 PRN SOB ( Reported) Albuterol Sulfate 2.5 MG/3 ML (0.083 %) VIAL.NEB 1 Vial INH/BRANDON Q4P PRN SOB ( Reported) Fluticasone/Salmeterol (Advair 500-50 Diskus) 500 MCG-50 MCG/DOSE BLST.W.DEV 1 PUF INH BID ASTHMA (Reported) Furosemide 20 MG TABLET 3 TAB PO DAILY PRN WATER PILL (Reported) Loratadine (Claritin) 10 MG TABLET 1 TAB PO DAILY ALLERGIES (Reported) Prednisone 20 MG TABLET 1 TAB PO PRN STEROID (Reported) Rivaroxaban (Xarelto) 20 MG TABLET 1 TAB PO DAILY BLOOD THINNER (Reported) with food Solifenacin Succinate (Vesicare) 10 MG TABLET 1 TAB PO AD BLADDER (Reported) Review of Systems Review of Systems Constitutional: Reports: see HPI. 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: bladder prolapse Surgical History Surgical History: open reduction and internal fixation of right tibia fracture Family History Relations & Conditions If Any: MOTHER FH: asthma FATHER FH: COPD (chronic obstructive pulmonary disease) FH: lung cancer FH: prostate cancer BROTHER Relation not specified for: FH: celiac disease FH: coronary artery disease FH: kidney disease Psychosocial History Services at Home: Oxygen Primary Language: Peruvian Smoking Status: Never Smoked ETOH Use: denies use Illicit Drug Use: denies illicit drug use Functional Ability ADLs Independent: dressing, eating, toileting, bathing. Ambulation: independent IADLs Independent: shopping, housework, finances, food prep, telephone, transportation , medication admin. Exam & Diagnostic Data Last 24 Hrs of Vital Signs/I&O Vital Signs Date Time Temp Pulse Resp B/P Pulse O2 O2 Flow FiO2 Ox Delivery Rate 11/28 0808 20 94 Nasal 4.0L Cannula 11/28 0800 94 Nasal 4.0L Cannula 11/28 0755 22 94 CPAP 11/28 0745 97.9 90 22 140/90 75 CPAP 11/28 0456 79 93 11/28 0430 96.5 93 22 137/79 93 CPAP 11/28 0430 94 CPAP 11/28 0408 97.6 90 22 153/81 93 Nasal 2.0L Cannula 11/28 0109 93 Nasal 2.0L Cannula 11/27 2237 93 Nasal 3.0L Cannula 11/27 2230 88 Room Air 11/27 2206 97.3 104 20 132/77 92 Room Air Intake & Output 11/28 1600 11/28 0800 11/28 0000 Intake Total 0 Output Total Balance 0 Intake, Oral 0 Patient 306 lb 306 lb Weight cxr IMPRESSION: No acute abnormality the chest. Laboratory Tests 11/28 11/28 0635 0055 Chemistry Sodium (137 - 145 mmol/L) 139 140 Potassium (3.5 - 5.1 mmol/L) 5.7 H 4.8 Chloride (98 - 107 mmol/L) 99 102 Carbon Dioxide (22 - 30 mmol/L) 35 H 36 H Anion Gap (5 - 16) 6 3 L BUN (7 - 17 mg/dL) 19 H 20 H Creatinine (0.5 - 1.0 mg/dL) 0.5 0.7 Estimated GFR (>60 ml/min) > 60 > 60 BUN/Creatinine Ratio (7 - 25 %) 38.0 H 28.6 H Glucose (65 - 99 mg/dL) 136 H Calcium (8.4 - 10.2 mg/dL) 9.2 Magnesium (1.6 - 2.3 mg/dL) 2.0 Total Bilirubin (0.2 - 1.3 mg/dL) 0.3 AST (14 - 36 U/L) 18 ALT (9 - 52 U/L) 36 Alkaline Phosphatase (<127 U/L) 71 Troponin I (< 0.11 ng/ml) < 0.01 Total Protein (6.3 - 8.2 g/dL) 6.2 L Albumin (3.5 - 5.0 g/dL) 3.5 Globulin (1.9 - 4.2 gm/dL) 2.7 Albumin/Globulin Ratio (1.1 - 2.2 %) 1.3 Hematology CBC w Diff NO MAN DIFF REQ WBC (4.8 - 10.8 /CUMM) 10.9 H RBC (4.20 - 5.40 /CUMM) 4.88 Hgb (12.0 - 16.0 G/DL) 13.6 Hct (37 - 47 %) 42.0 MCV (81.0 - 99.0 FL) 86.1 MCH (27.0 - 31.0 PG) 27.9 RDW (11.5 - 14.5 %) 14.5 Plt Count (130 - 400 /CUMM) 205 MPV (7.4 - 10.4 FL) 7.5 Gran % (42.2 - 75.2 %) 74.1 Lymphocytes % (20.5 - 51.1 %) 16.8 L Monocytes % (1.7 - 9.3 %) 7.4 Eosinophils % (0 - 5 %) 0.7 Basophils % (0.0 - 2.0 %) 1.0 Absolute Granulocytes (1.4 - 6.5 /CUMM) 8.1 H Absolute Lymphocytes (1.2 - 3.4 /CUMM) 1.8 Absolute Monocytes (0.10 - 0.60 /CUMM) 0.8 H Absolute Eosinophils (0.0 - 0.7 /CUMM) 0.1 Absolute Basophils (0.0 - 0.2 /CUMM) 0.1 PUBS MCHC (33.0 - 37.0 G/DL) 32.4 L Last 48 Hrs of Labs/Neftali: Laboratory Tests 11/28/16 0635: Anion Gap 6, Estimated GFR > 60, BUN/Creatinine Ratio 38.0 H, Magnesium 2.0 11/28/16 0055: Anion Gap 3 L, Estimated GFR > 60, BUN/Creatinine Ratio 28.6 H, Glucose 136 H , Calcium 9.2, Total Bilirubin 0.3, AST 18, ALT 36, Alkaline Phosphatase 71, Troponin I < 0.01, Total Protein 6.2 L, Albumin 3.5, Globulin 2.7, Albumin/ Globulin Ratio 1.3, CBC w Diff NO MAN DIFF REQ, RBC 4.88, MCV 86.1, MCH 27.9, RDW 14.5, MPV 7.5, Gran % 74.1, Lymphocytes % 16.8 L, Monocytes % 7.4, Eosinophils % 0.7, Basophils % 1.0, Absolute Granulocytes 8.1 H, Absolute Lymphocytes 1.8, Absolute Monocytes 0.8 H, Absolute Eosinophils 0.1, Absolute Basophils 0.1, PUBS MCHC 32.4 L Assessment/Plan Impression/Plan: Physical Exam General Appearance Alert, Oriented X3, Cooperative, Mild Distress Skin No Significant Lesion HEENT Atraumatic, PERRLA, EOMI Neck Supple Cardiovascular Regular Rate, Normal S1, Normal S2, No Murmurs Lungs decreased air movement; with no wheezing, rubs or rhonchi Abdomen Normal Bowel Sounds, Soft, No Tenderness Neurological Normal Gait, Normal Speech, Normal Tone Extremities erythema in bilat le; stable. This is a lady with very severe morbid obesity, chronic hypercarbic respiratory failure with severe obstructive sleep apnea with obesity hypoventilation syndrome, mild asthma, chronic venostasis with lower extremity chronic cellulitis, remote history of extensive pulmonary embolism involving the right pulmonary artery in 2009 since then multiple CTs have been negative for any venous thromboembolism patient is on xeralto for prevention of venous thromboembolism now has * Resolving Acute on chronic respiratory hypercarbic failure related to worsening obesity hypoventilation syndrome which is complicated by, mild asthma, benadryl use, worsening overall sleep apnea and obesity with hypoventilation with probable noncompliance as outpatient. * Corpulmonale with fluid overload * Mild persistant asthma with exacerbation now better * Previous history of significant pulmonary embolism now on appropriate anticoagulation for prevention * Severe morbid obesity with bedtime hypoxia, pt supposed to be on oxygen at hs with cpap but she is not using it * No significant evidence suggestive of active pneumonitis or bacterial infection * Chronic pain syndrome * Significant lower extremity edema with chronic venous insufficiency with intertrigo on medications. REC Intravenous Lasix 20 mg twice a day Check potassium keep it more than 4 Use 4 L of oxygen with CPAP Use CPAP unit afternoon if she is taking a nap Discontinue Benadryl when necessary Discontinue pain medications if she was not on any at home Change her to by mouth prednisone 40 mg Continue inhalers use Symbicort as she was on Advair at home 2 puffs twice a day Continue anticoagulation Increase activity Patient might benefit from BiPAP if she does not respond to CPAP in the future Consult Acknowledgment - Thank you for your consult request.
--- NOTE | 2016-11-28 11:04 | NUR ---
NURSING NOTE: EKG DONE BY [facility]ST PER MD ORDER FOR HYPERKALEMIA, K + 5.7 APPLICATIONS SUPPORT ANALYST 108 CALLED AND TO COME READ EKG. PT DENIES COMPLAINTS
--- NOTE | 2016-11-28 11:50 | PN- Att Addend ---
Attending Addendum Attending Brief Note Patient seen and examined, feeling slightly better today. She had an appendectomy response this morning when she was somewhat unresponsive. After everybody arrived in the room she woke up. She currently feels better overall but still requiring 4 L of oxygen. Vital Signs Date Time Temp Pulse Resp B/P Pulse O2 O2 Flow FiO2 Ox Delivery Rate 11/28 1051 94 Nasal 4.0L Cannula 11/28 1017 Nasal 4.0L Cannula 11/28 0808 20 94 Nasal 4.0L Cannula 11/28 0800 94 Nasal 4.0L Cannula 11/28 0755 22 94 CPAP 11/28 0745 97.9 90 22 140/90 75 CPAP 11/28 0456 79 93 11/28 0430 96.5 93 22 137/79 93 CPAP 11/28 0430 94 CPAP 11/28 0408 97.6 90 22 153/81 93 Nasal 2.0L Cannula 11/28 0109 93 Nasal 2.0L Cannula 11/27 2237 93 Nasal 3.0L Cannula 11/27 2230 88 Room Air 11/27 2206 97.3 104 20 132/77 92 Room Air on exam; aox3, nad. Obese. cv; s1,s2, rrr resp; decreased bs overall. abd; soft, nt, bs+ ext; 1+ edema b/l Laboratory Tests 11/28 11/28 0635 0055 Chemistry Sodium (137 - 145 mmol/L) 139 140 Potassium (3.5 - 5.1 mmol/L) 5.7 H 4.8 Chloride (98 - 107 mmol/L) 99 102 Carbon Dioxide (22 - 30 mmol/L) 35 H 36 H Anion Gap (5 - 16) 6 3 L BUN (7 - 17 mg/dL) 19 H 20 H Creatinine (0.5 - 1.0 mg/dL) 0.5 0.7 Estimated GFR (>60 ml/min) > 60 > 60 BUN/Creatinine Ratio (7 - 25 %) 38.0 H 28.6 H Glucose (65 - 99 mg/dL) 136 H Calcium (8.4 - 10.2 mg/dL) 9.2 Magnesium (1.6 - 2.3 mg/dL) 2.0 Total Bilirubin (0.2 - 1.3 mg/dL) 0.3 AST (14 - 36 U/L) 18 ALT (9 - 52 U/L) 36 Alkaline Phosphatase (<127 U/L) 71 Troponin I (< 0.11 ng/ml) < 0.01 Total Protein (6.3 - 8.2 g/dL) 6.2 L Albumin (3.5 - 5.0 g/dL) 3.5 Globulin (1.9 - 4.2 gm/dL) 2.7 Albumin/Globulin Ratio (1.1 - 2.2 %) 1.3 Hematology CBC w Diff NO MAN DIFF REQ WBC (4.8 - 10.8 /CUMM) 10.9 H RBC (4.20 - 5.40 /CUMM) 4.88 Hgb (12.0 - 16.0 G/DL) 13.6 Hct (37 - 47 %) 42.0 MCV (81.0 - 99.0 FL) 86.1 MCH (27.0 - 31.0 PG) 27.9 RDW (11.5 - 14.5 %) 14.5 Plt Count (130 - 400 /CUMM) 205 MPV (7.4 - 10.4 FL) 7.5 Gran % (42.2 - 75.2 %) 74.1 Lymphocytes % (20.5 - 51.1 %) 16.8 L Monocytes % (1.7 - 9.3 %) 7.4 Eosinophils % (0 - 5 %) 0.7 Basophils % (0.0 - 2.0 %) 1.0 Absolute Granulocytes (1.4 - 6.5 /CUMM) 8.1 H Absolute Lymphocytes (1.2 - 3.4 /CUMM) 1.8 Absolute Monocytes (0.10 - 0.60 /CUMM) 0.8 H Absolute Eosinophils (0.0 - 0.7 /CUMM) 0.1 Absolute Basophils (0.0 - 0.2 /CUMM) 0.1 PUBS MCHC (33.0 - 37.0 G/DL) 32.4 L A/P; 46 y/o F with pmh sig for asthma, SCOTT on CPAP (noncompliant), GERD, celiac, DM diet controlled, chronic LE edema, obesity, recurrent cellulitis, DVT and PE on Xarelto admitted with acute hypoxic respiratory failure likely secondary to some asthma exacerbation as well as worsening of her obstructive sleep apnea, pickwickian syndrome as well as obesity hypoventilation syndrome. Continue oxygen and will try to taper as she can tolerate. Appreciate pulmonology input. Will taper her steroids and switched to by mouth prednisone. No evidence or signs of infection therefore no antibiotics are needed. Patient does have slight hyperkalemia today. EKG does not show any significant changes. We'll repeat the levels in the afternoon. We'll start her on IV Lasix per pulmonology and monitor her electrolytes. Patient was encouraged to ambulate Continue TRC nebs. Continue the patient on her Xarelto. DVT prophylaxis: Xarelto.
[2016-11-28] MEDS ORDERED: PREDNISONE10 M2 PO ×2 (13:27→14:48)
--- NOTE | 2016-11-28 13:34 | Patient Discharge Instructions ---
Discharge Instructions General Discharge Information You were seen/treated for: Obesity hypoventilation syndrome Asthma exacerbation Obstructive sleep apnea Cor pulmonale Watch for these problems: Severe difficulty breathing Persistent cough or wheezing Chest pain that does not go away Swelling in your legs, feet or abdomen Lightheadedness or confusion Special Instructions: Please see your primary care physician Dr. Freeman within one week of discharge. Please follow up with your tunnel kiln repairer Dr. Beatty within two weeks of discharge for your lungs. Diet Recommended Diet: Heart Healthy Activity Activity Self Limited: Yes Additional ACTIVITY Info: As tolerated with assistance Acute Coronary Syndrome Inclusion Criteria At DC or during hospital stay patient has or had the following: ACS DIAGNOSIS No Discharge Core Measures Meds if any: Prescribed or Continued at Discharge Meds if any: NOT Prescribed or Continued at Discharge Congestive Heart Failure Inclusion Criteria At DC or during hospital stay patient has or had the following: CHF DIAGNOSIS Yes Discharge Core Measures Meds if any: Prescribed or Continued at Discharge MIKE/ARB for EF <40% No (EF >60%) Meds if any: NOT Prescribed or Continued at Discharge Comment EF >60% Cerebrovascular accident Inclusion Criteria At DC or during hospital stay patient has or had the following: CVA/TIA Diagnosis No Discharge Core Measures Meds if any: Prescribed or Continued at Discharge Meds if any: NOT Prescribed or Continued at Discharge Venous thromboembolism Inclusion Criteria VTE Diagnosis No VTE Type NONE VTE Confirmed by (Test) NONE Discharge Core Measures - Per Current guidelines, there needs to be overlap - treatment for the first 5 days of Warfarin therapy. - If discharged on Warfarin prior to 5 days of - overlap therapy, the patient will need to be - assessed for post discharge needs including - *Post discharge parental anticoagulation - *Warfarin and/or parental anticoagulation education - *Follow up date to check INR post discharge At least 5 days overlap therapy as Inpatient No Meds if any: Prescribed or Continued at Discharge Note: Overlap Therapy is Warfarin and Anticoagulant Meds if any: NOT Prescribed or Continued at Discharge
[2016-11-28 14:31] VITALS: BP 110/72
--- NOTE | 2016-11-28 14:59 | Event Note ---
Event Note Event Note: Rapid response was called this morning as patient was difficult to arouse satting at 74% on CPAP. She woke up feeling better and was taken off CPAP. Patient was seen and examined later this morning. She feels improved overall but continues to require 4 L NC. On exam, she had diminished breath sounds but no wheezing. Below are the issues that were addressed today. - Patient's boat motor mechanic Dr. Pepe was consulted who felt that patient's current presentation was secondary to worsening obesity hypoventilation syndrome with contributions from mild asthma exacerbation, respiratory depression secondary to Benadryl use and cor pulmonale. His recommendations were followed. - Patient was started on Symbicort 2 puffs BID as she is on Advair 2 puffs BID at home. - Benadryl and sedating pain medications including morphine and Vicodin were discontinued. - K was 5.7 in the morning. EKG was repeated and showed no acute changes. Repeat K in the afternoon was 5.2. Will re-check in the AM. - For cor pulmonale, patient was started on Lasix 20 mg IV BID. - In view of significant improvement of asthma exacerbation with resolution of wheezing, IV Solumedrol was discontinued and prednisone 40 mg PO daily was started. - Per Dr. Pepe's recommendations, 4 L of oxygen will be used with CPAP, which will be used in the afternoon as well, if patient takes a nap. Respiratory therapy was made aware. - If patient continues to improve tomorrow, she will be discharged on prednisone taper.
[2016-11-28 22:09] VITALS: BP 134/77
[2016-11-29 00:13] VITALS: BP 112/70
[2016-11-29 06:51] VITALS: BP 108/70
--- NOTE | 2016-11-29 07:00 | NUR ---
PT SLEPT WELL WITH CPAP ON. O2 SATS RANGED FROM 84-99%. PT DIFFICULT TO AROUSE AND AWAKE FROM SLEEP. IS NOW AWAKE, AOX3.
--- NOTE | 2016-11-29 07:07 | PN- Housestaff ---
Subjective Follow-up For: Acute on chronic hypercarbic respiratory failure Hyperkalemia Subjective: No acute events overnight. Patient seen and examined this morning. She feels better today. SOB is improved but she remains dependent on continuous supplemental oxygen. Review of Systems Constitutional: Reports: see HPI. Objective Last 24 Hrs of Vital Signs/I&O Vital Signs Date Time Temp Pulse Resp B/P Pulse O2 O2 Flow FiO2 Ox Delivery Rate 11/29 1115 20 95 Nasal 2.0L Cannula 11/29 111 22 90 Nasal 2.0L Cannula 11/29 1114 95 Nasal 2.0L Cannula 11/29 1114 24 85 Room Air 11/29 1114 20 93 Nasal 2.0L Cannula 11/29 1114 20 95 Nasal 4.0L Cannula 11/29 0816 20 95 Nasal 4.0L Cannula 11/29 0800 95 Nasal 4.0L Cannula 11/29 0651 98.6 78 20 108/70 88 BIPAP 11/29 0504 78 92 11/29 0013 98.7 89 20 112/70 93 11/29 0000 Nasal 4.0L Cannula 11/28 2209 98.4 92 20 134/77 94 Nasal 4.0L Cannula 11/28 1600 Nasal 4.0L Cannula Intake & Output 11/29 1600 11/29 0800 11/29 0000 Intake Total 563 699 1367 Output Total 1000 1500 1100 Balance -70 -1100 400 Intake, IV 30 Intake, Oral 731 917 4582 Number 0 Bowel Movements Output, Urine 1000 1500 1100 Patient 140.387 kg Weight Physical Exam General Appearance: Alert, Oriented X3, No Acute Distress, Obese HEENT: Atraumatic, Mucous Membr. moist/pink Neck: Supple Cardiovascular: Regular Rate, Normal S1, Normal S2, No Murmurs, Gallops, Rubs Lungs: Diminished Breath Sounds, No Wheezes or Crackles Abdomen: Soft, No Tenderness, Positive Bowel Sounds Extremities: Bilateral Lower Extremities with 1+ Edema and Skin Changes Consistent with Chronic Venous Stasis Current Medications: Current Medications Sig/Luca Start time Last Medication Dose Route Stop Time Status Admin Acetaminophen 650 MG Q6P PRN 11/28 0315 DCD 11/28 PO 1232 Albuterol Sulfate 3 ML Q4P PRN 11/28 0330 DCD 11/29 INH 1111 Budesonide/ 2 PUF BID 11/28 1035 DCD 11/29 Formoterol Fumarate INH 0818 Furosemide 20 MG ONCE ONE 11/28 2199 DC 11/28 IV PUSH 11/28 Furosemide 20 MG 7:30 AM, & 4:30 PM 11/28 1630 DC IV Furosemide 20 MG 0730,1630 11/28 1630 DCD 11/29 IV 0737 Loratadine 10 MG DAILY 11/28 1000 DCD 11/29 PO 0818 Nystatin 1 LB BID 11/28 1552 DCD 11/29 TOP 0818 Ondansetron HCl 4 MG Q6P PRN 11/28 0315 DCD IV Oxybutynin Chloride 5 MG BID 11/28 1000 DCD 11/29 PO 0818 Patient Medication 1 ED .STK-MED ONE 11/29 1402 DC Teaching ED 11/29 1403 Prednisone 40 MG DAILY 11/28 1034 DCD 11/29 PO 0818 Rivaroxaban 20 MG DAILY 11/28 1000 DCD 11/29 PO 0818 Last 24 Hrs of Lab/Neftali Results Last 24 Hrs of Labs/Mics: Laboratory Tests 11/29/16 0908: Anion Gap 10, Estimated GFR > 60, BUN/Creatinine Ratio 24.3 Assessment/Plan Assessment: 46 y/o morbidly obese F with PMHx of obesity hypoventilation syndrome, SCOTT on CPAP and mild persistent asthma who is admitted for acute on chronic hypercarbic respiratory failure. #Acute on chronic hypercapnic respiratory failure: Elmo to be multifactorial secondary to worsening obesity hypoventilation syndrome, exacerbation of mild persistent asthma, worsening SCOTT with CPAP noncompliance, cor pulmonale and respiratory depression from Benadryl use. SOB improved today, but still requiring oxygen. * Discharge home today on prednisone taper: 30 mg x 2 days, 20 mg x 2 days, 10 mg x 2 days and then stop. * Instructions provided to follow up with PCP as well as photoengraving etcher Dr. Beatty on discharge. * Lasix 20 mg PO TID PRN changed to scheduled. * Continue prior to admission inhalers on discharge. * Continue prior to admission prednisone 20 mg PRN for asthma exacerbation after completing prednisone taper. * Portable oxygen tank arranged by case management. #Hyperkalemia: Resolved. K has improved to 4.1 today. * NTD. Diet: Regular DVT PPx: Xarelto and ALPs CODE: FULL Problem List: 1. Acute and chronic respiratory failure with hypercapnia 2. Mild persistent asthma with exacerbation 3. Morbid obesity with BMI of 60.0-69.9, adult 4. SCOTT on CPAP 5. Obesity hypoventilation syndrome 6. Cor pulmonale Pain Ratin Pain Location: N/A Pain Goal: Remain pain free Pain Plan: Tylenol 650 mg PO Q6H Tomorrow's Labs & Rationales: None Discharge Plan Discharge Disposition: home Stable for Discharge? Yes Anticipated Discharge (Day): today
[2016-11-29] MEDS ORDERED: PREDNISONE20 M1 PO ×2 (10:51→14:27)
--- NOTE | 2016-11-29 11:15 | NUR ---
NURSING NOTE: PT WILL REQUIRE 2L NC AT REST AND 3L NC WITH AMBULATION. SEE VITALS FOR O2 SAT DOCUMENTATION/DESATTING. PT AWAKE, A/OX3, STEADY GAIT NOTED IN HALLWAY. DR SJ RODRIGUEZ, MOLDED PARTS INSPECTOR TO ORDER PORTABLE O2 TANK BEFORE DC. CONT TO MONITOR.
--- NOTE | 2016-11-29 12:05 | PN- Att Addend ---
Attending Addendum Attending Brief Note Patient seen and examined, feeling better than before. Feeling less short of breath on exertion. Still requiring oxygen. He has switched her to oral prednisone. She received IV Lasix yesterday. She has been seen by Dr. Pepe as of yesterday. Her vital signs are stable and her lung exam does not reveal any further wheezing. Patient will be discharged home today and she will follow-up with her primary care doctor as well as machine cloth examiner as an outpatient. She'll be continued on a prednisone taper. Patient was encouraged to continue taking her Lasix on a regular basis. The rest of her home medications will be continued. For now she is requiring continuous oxygen and not as needed.
--- NOTE | 2016-11-29 13:13 | Discharge Summary ---
Visit Information Visit Dates Admission Date: 11/28/16 Discharge Date: 11/29/16 Hospital Course Course Attending Physician: OBEY PEREZ MD Primary Care Physician: MYA KILLIAN,MARTELL Blake Other Care Providers: Hide Examiner Vale Beatty MD Consulting Request: Consulting Specialty: Pulmonary Disease Consulting Physician: Javon Pepe MD Reason for Consult: Acute on chronic hypercarbic respiratory failure Hospital Course: Ms. Tanner is a 46 y/o F with PMHx of mild persistent asthma, obesity hypoventilation syndrome, SCOTT on CPAP, DVT and PE s/p IVC filter on Xarelto, diet-controlled T2DM and diastolic CHF who presented with dyspnea on exertion x2 weeks as well as a 1-week history of 6-8 lbs weight gain. On initial presentation, vitals were significant for tachycardia and oxygen saturation of 88% on room air which dropped to 79% with ambulation. Lung exam revealed reduced air entry, scattered expiratory wheezes and bilateral 1+ pitting edema. Labs were remarkable for WBC count of 10.9 and bicarbonate 36 (bicarbonate chronically elevated at baseline). EKG showed sinus tachycardia. CXR was negative. In the ED, she was given Duonebs and Decadron and subsequently admitted for acute on chronic hypercarbic respiratory failure. Below are the issues that were addressed during present admission: #Acute on chronic hypercarbic respiratory failure: On the first morning following admission, patient was noted to be unresponsive with desaturation to 74% on CPAP. However she woke up without intervention and with improvement of her oxygenation and mental status to baseline. Hide Examiner Dr. Pepe was contacted who felt that current presentation is multifactorial secondary to worsening obesity hypoventilation syndrome, exacerbation of mild persistent asthma, worsening SCOTT with CPAP noncompliance, cor pulmonale and respiratory depression from Benadryl use. SOB improved today, but still requiring oxygen. Patient was started on IV Solumedrol and later switched to oral prednisone 40 mg daily which she took for 2 days. Her home dose of Lasix 20 mg PO TID, which she had not been taking, was continued. All narcotics for discontinued due to concern for respiratory depression. By the second day morning following admission, shortness of breath had significantly improved and wheezing had resolved. However, patient remained dependent on continuous supplemental oxygen. * Patient was discharge on prednisone taper: 30 mg x 2 days, 20 mg x 2 days, 10 mg x 2 days and then stop. * Once prednisone taper is complete, patient will continue prior to admission prednisone 20 mg that she was taking as needed for asthma exacerbation. * Patient was instructed to follow up with her PCP as well as imaging engineer Dr. Beatty on discharge. * Patient will continue prior to admission inhalers on discharge. * Portable oxygen tank was arranged by case management. * Patient will take Lasix 20 mg PO TID on a scheduled basis on discharge. #Hyperkalemia: Potassium was normal on admission but increased to 5.7 the following morning. EKG was without EKG changes. Potassium later improved to 4.2 without intervention. Allergies: Coded Allergies: cat dander (Severe, DYSPNEA 07/17/16) dog dander (DYSPNEA 07/17/16) grass pollen (DIFFICULTY BREATHING 07/17/16) mold (DYSPNEA 07/17/16) ragweed pollen (DYSPNEA 07/17/16) tree and shrub pollen (DIFFICULTY BREATHING 07/17/16) amoxicillin (From Augmentin) (ITCHY 07/17/16) ampicillin (LOW GRADE FEVER 07/17/16) cephalexin (From KEFLEX) (VOMITING 07/17/16) clavulanic acid (From Augmentin) (ITCHY 07/17/16) isoetharine (HEART RATE ELEVATION 07/17/16) Disposition Summary Disposition Principal Diagnosis: Acute on chronic hypercarbic respiratory failure Additional Diagnosis: Obesity hypoventilation syndrome Asthma exacerbation Obstructive sleep apnea Cor pulmonale Hyperkalemia Discharge Disposition: home or self care Discharge Instructions General Discharge Information Code Status: Full Code Patient's Diet: Heart Healthy Patient's Activity: As tolerated with assistance Follow-Up Instructions/Appts: Please see your primary care physician Dr. Freeman within one week of discharge. Please follow up with your imaging engineer Dr. Beatty within two weeks of discharge for your lungs. Medications at Discharge Discharge Medications: Continue taking these medications: Albuterol Sulfate (Proventil Hfa) 90 MCG HFA.AER.AD 2 Puff Inhale through mouth Every 4 hours as needed for SOB Comments: NOT GIVEN Rivaroxaban (Xarelto) 20 MG TABLET 1 Tablet ORAL DAILY Instructions: with food Comments: Last Taken: 11/29/16 Time: 0800AM Solifenacin Succinate (Vesicare) 10 MG TABLET 1 Tablet ORAL DAILY Comments: Last Taken:11/29/16 Time: 0800AM Albuterol Sulfate (Albuterol Sulfate) 2.5 MG/3 ML (0.083 %) VIAL.NEB 1 Vial Inhale Solution EVERY 4 HOURS NEEDED as needed for SOB Comments: Last Taken: 11/29/16 Time: 1115AM Fluticasone/Salmeterol (Advair 500-50 Diskus) 500 MCG-50 MCG/DOSE BLST.W.DEV 1 Puff Inhale through mouth TWICE DAILY Qty = 180 Comments: SYMBICORT GIVEN 11/29/16 @0800AM Loratadine (Claritin) 10 MG TABLET 1 Tablet ORAL DAILY Comments: Last Taken: 11/29/16 Time: 0800AM Furosemide (Furosemide) 20 MG TABLET 1 Tablet ORAL THREE TIMES DAILY Comments: LASIX 20MG IV GIVEN 11/29/16 0730AM Prednisone (Prednisone) 20 MG TABLET 1 Tablet ORAL As Directed as needed for STEROID Qty = 10 Instructions: Do not take medication while on prednisone taper during 11/30-12/05. Comments: NOT GIVEN This prescription has been renewed Start taking the following new medications: Prednisone (Prednisone) 10 MG TABLET 0 ORAL As Directed Qty = 12 No Refills Instructions: On Take 11/30-12/01 3 tabs per day 12/02-12/03 2 tabs per day 12/04-12/05 1 tab per day Then Stop Comments: PREDNISONE 40MG PO GIVEN 11/29/16 @0800AM Copies To: JOSE KILLIAN,VALE Mcneill; MYA KILLIAN,MARTELL Mcneill.
[2016-11-29] MEDS ORDERED: PREDNISONE10 M2 PO ×2 (14:14→14:25)
--- NOTE | 2016-11-29 14:15 | PN- Pulmonary ---
Subjective HPI/Critical Care Issues: Doing well afebrile vss diuresis ongoing Objective Current Medications: Current Medications Sig/Luca Start time Last Medication Dose Route Stop Time Status Admin Acetaminophen 650 MG Q6P PRN 11/28 0315 AC 11/28 PO 1232 Albuterol Sulfate 3 ML Q4P PRN 11/28 0330 AC 11/29 INH 1111 Budesonide/ 2 PUF BID 11/28 1035 AC 11/29 Formoterol Fumarate INH 0818 Furosemide 20 MG ONCE ONE 11/28 2199 DC 11/28 IV PUSH 11/28 Furosemide 20 MG 7:30 AM, & 4:30 PM 11/28 1630 DC IV Furosemide 20 MG 0730,1630 11/28 1630 AC 11/29 IV 0737 Loratadine 10 MG DAILY 11/28 1000 AC 11/29 PO 0818 Nystatin 1 LB BID 11/28 1552 AC 11/29 TOP 0818 Ondansetron HCl 4 MG Q6P PRN 11/28 0315 AC IV Oxybutynin Chloride 5 MG BID 11/28 1000 AC 11/29 PO 0818 Patient Medication 1 ED .STK-MED ONE 11/29 1402 OR Teaching ED 11/29 1403 Prednisone 40 MG DAILY 11/28 1034 AC 11/29 PO 0818 Rivaroxaban 20 MG DAILY 11/28 1000 AC 11/29 PO 0818 Vital Signs & I&O Last 24 Hrs of Vitals and I&O: Vital Signs Date Time Temp Pulse Resp B/P Pulse O2 O2 Flow FiO2 Ox Delivery Rate 11/29 1115 20 95 Nasal 2.0L Cannula 11/29 1115 22 90 Nasal 2.0L Cannula 11/29 1114 95 Nasal 2.0L Cannula 11/29 1114 24 85 Room Air 11/29 1114 20 93 Nasal 2.0L Cannula 11/29 1114 20 95 Nasal 4.0L Cannula 11/29 0816 20 95 Nasal 4.0L Cannula 11/29 0800 95 Nasal 4.0L Cannula 11/29 0651 98.6 78 20 108/70 88 BIPAP 11/29 0504 78 92 11/29 0013 98.7 89 20 112/70 93 11/29 0000 Nasal 4.0L Cannula 11/28 2208 98.4 92 20 134/77 94 Nasal 4.0L Cannula 11/28 1600 Nasal 4.0L Cannula 11/28 1431 98.0 78 22 110/72 92 Nasal 4.0L Cannula Intake & Output 11/29 1600 11/29 0800 11/29 0000 Intake Total 400 1500 Output Total 1500 1100 Balance -1100 400 Intake, Oral 400 1500 Output, Urine 1500 1100 Patient 310 lb Weight Impression/Plan Impression/Plan Impression/Plan: Physical Exam General Appearance Alert, Oriented X3, Cooperative, Mild Distress Skin No Significant Lesion HEENT Atraumatic, PERRLA, EOMI Neck Supple Cardiovascular Regular Rate, Normal S1, Normal S2, No Murmurs Lungs decreased air movement; with no wheezing, rubs or rhonchi Abdomen Normal Bowel Sounds, Soft, No Tenderness Neurological Normal Gait, Normal Speech, Normal Tone Extremities erythema in bilat le; stable. This is a lady with very severe morbid obesity, chronic hypercarbic respiratory failure with severe obstructive sleep apnea with obesity hypoventilation syndrome, mild asthma, chronic venostasis with lower extremity chronic cellulitis, remote history of extensive pulmonary embolism involving the right pulmonary artery in 2009 since then multiple CTs have been negative for any venous thromboembolism patient is on xeralto for prevention of venous thromboembolism now has * Resolved Acute on chronic respiratory hypercarbic failure related to worsening obesity hypoventilation syndrome which is complicated by, mild asthma, benadryl use, worsening overall sleep apnea and obesity with hypoventilation with probable noncompliance as outpatient. * Corpulmonale with fluid overload * Mild persistant asthma with exacerbation now better * Previous history of significant pulmonary embolism now on appropriate anticoagulation for prevention * Severe morbid obesity with bedtime hypoxia, pt supposed to be on oxygen at hs with cpap but she is not using it * No significant evidence suggestive of active pneumonitis or bacterial infection * Chronic pain syndrome * Significant lower extremity edema with chronic venous insufficiency with intertrigo on medications. REC CPAP wih oxygen daily and pt is aware Use CPAP unit afternoon if she is taking a nap Steroid taper Continue inhalers use Symbicort as she was on Advair at home 2 puffs twice a day Continue anticoagulation Increase activity Pt to follow with pcp
== END 2016-11-29 14:48 | DRG 202 ==
LOC: ENRESERVTM → ENRESERVDT → ERH 21:57 → ENPENDDIS 11-28 00:27 → DELPENDDIS 11-28 00:27 → 2NB 11-28 00:27 → ERHI 11-28 00:27 → 2NB 11-28 04:42
PROVIDERS: Pediatrics; ADMIT Student in an Organized Health Care Education/Training Program
DX: J45.901 Unspecified asthma with (acute) exacerbation (principal); J96.20 Acute and chronic respiratory failure, unspecified whether with hypoxia or hypercapnia; I50.32 Chronic diastolic (congestive) heart failure; I27.81 Cor pulmonale (chronic); E66.2 Morbid (severe) obesity with alveolar hypoventilation; L03.115 Cellulitis of right lower limb; Z68.44 Body mass index [BMI] 60.0-69.9, adult; L03.116 Cellulitis of left lower limb; E11.9 Type 2 diabetes mellitus without complications; Z79.01 Long term (current) use of anticoagulants; K21.9 Gastro-esophageal reflux disease without esophagitis; K90.0 Celiac disease
CPT/HCPCS: 2NBP; 36415; 82436; 93005; 93010; J1200; J1940; J2405; J2920; J3490

== ENCOUNTER 2016-12-13 20:27 | Emergency (ER) | payer OTHER ==
[~2016-12-13] VITALS: Ht 142.2 cm; Wt 141.1 kg
--- NOTE | 2016-12-13 21:22 | ED DYSPNEA/ASTHMA COMPLAINT ---
History of Present Illness General Chief Complaint: Dyspnea (COPD, CHF, Other) Stated Complaint: SOB Source: patient, old records Exam Limitations: no limitations Vital Signs & Intake/Output Vital Signs & Intake/Output Vital Signs Date Time Temp Pulse Resp B/P Pulse O2 O2 Flow FiO2 Ox Delivery Rate 12/13 230 Nasal 2.0L Cannula 12/14 2127 95 Nasal 2.0L Cannula 12/13 2032 98.4 100 20 101/68 91 Room Air Allergies Coded Allergies: cat dander (Severe, DYSPNEA 07/17/16) dog dander (DYSPNEA 07/17/16) grass pollen (DIFFICULTY BREATHING 07/17/16) mold (DYSPNEA 07/17/16) ragweed pollen (DYSPNEA 07/17/16) tree and shrub pollen (DIFFICULTY BREATHING 07/17/16) amoxicillin (From Augmentin) (ITCHY 07/17/16) ampicillin (LOW GRADE FEVER 07/17/16) cephalexin (From KEFLEX) (VOMITING 07/17/16) clavulanic acid (From Augmentin) (ITCHY 07/17/16) isoetharine (HEART RATE ELEVATION 07/17/16) Reconcile Medications Albuterol Sulfate (Proventil Hfa) 90 MCG HFA.AER.AD 2 PUF INH Q4 PRN SOB ( Reported) Albuterol Sulfate 2.5 MG/3 ML (0.083 %) VIAL.NEB 1 Vial INH/BRANDON Q4P PRN SOB ( Reported) Fluticasone/Salmeterol (Advair 500-50 Diskus) 500 MCG-50 MCG/DOSE BLST.W.DEV 1 PUF INH BID ASTHMA (Reported) Furosemide 20 MG TABLET 1 TAB PO TID FLUID RETENTION (Reported) Loratadine (Claritin) 10 MG TABLET 1 TAB PO DAILY ALLERGIES (Reported) Prednisone 10 MG TABLET 0 PO AD ASTHMA On Take 11/30-12/01 3 tabs per day 12/02-12/03 2 tabs per day 12/04-12/05 1 tab per day Then Stop Prednisone 20 MG TABLET 1 TAB PO AD PRN STEROID Do not take medication while on prednisone taper during 11/30-12/05. Rivaroxaban (Xarelto) 20 MG TABLET 1 TAB PO DAILY BLOOD THINNER (Reported) with food Solifenacin Succinate (Vesicare) 10 MG TABLET 1 TAB PO DAILY BLADDER ( Reported) Triage Note: RECEIVED 46 YO FEMALE WITH HX OF ASTHMA C/O DIFFICULTY BREATHING, WORSE ON EXERTION, STARTED LAST NIGHT. MILD NON-PRODUCTIVE COUGH. O2 SATS 91 % ON ROOM AIR. Triage Nurses Notes Reviewed? yes HPI: Patient presents for evaluation of worsening and constant moderate to severe dyspnea that began gradually last night. Patient states she's been using her metered-dose inhaler, nebulizers and "water pills" without improvement. She states the dyspnea worsens with exertion and feels better when she is resting and using her home oxygen as needed. She denies fever or cold symptoms but states that she has had worsening leg edema over the past week or so. She also has noticed an increase in her weight. She is discharged from the hospital about 2 weeks ago for a similar symptom complex. She felt well at discharge. She states that she has noticed wheezing and a mild nonproductive cough. Past History Travel History Traveled to [place] past 21 day No Medical History Any Pertinent Medical History? 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/Reproductive: bladder prolapse History of MRSA: No History of VRE: No History of CDIFF: No Influenza Vaccine: 06/10/16 Surgical History Surgical History: open reduction and internal fixation of right tibia fracture Psychosocial History Who do you live with Patient and family Services at Home Oxygen What is your primary language [place] Tobacco Use: Never used Family History Family History, If Any: MOTHER FH: asthma FATHER FH: COPD (chronic obstructive pulmonary disease) FH: lung cancer FH: prostate cancer BROTHER Relation not specified for: FH: celiac disease FH: coronary artery disease FH: kidney disease Hx Contributory? No Review of Systems Review of Systems Constitutional: Reports: no symptoms. EENTM: Reports: no symptoms. Respiratory: Reports: see HPI. Cardiovascular: Reports: no symptoms. GI: Reports: no symptoms. Genitourinary: Reports: no symptoms. Musculoskeletal: Reports: no symptoms. Skin: Reports: no symptoms. Neurological/Psychological: Reports: no symptoms. Hematologic/Endocrine: Reports: no symptoms. Immunologic/Allergic: Reports: no symptoms. All Other Systems: Reviewed and Negative Physical Exam Physical Exam Respiratory: SEE BELOW Comments: Gen.: Well-nourished, well-developed, mild respiratory distress (with nasal cannula in place). Morbidly obese. Head: Normocephalic, atraumatic. Eyes: Normal inspection bilaterally Ears: Normal inspection bilaterally Nose: Normal inspection Throat/mouth : Moist mucosa Neck: Supple, full range of motion, no goiter Heart: Regular rate and rhythm, no murmurs rubs or gallops Lungs: Mild right posterior wheezes on end expiration but otherwise normal air entry Chest: Nontender Back: Normal range of motion Abdomen: Soft, nontender, nondistended, normal bowel sounds Extremities: Normal range of motion grossly, equal radial pulses, no cyanosis, bilateral 2+ lower extremity pitting edema with stasis dermatitis. Neurologic: Cranial nerves grossly intact, speech is clear Skin: warm and dry Psychiatric: Calm, cooperative, no apparent delusions or hallucinations Core Measures ACS in differential dx? No Severe Sepsis Present: No Septic Shock Present: No Progress Differential Diagnosis: asthma, CHF, COPD, pneumonia Plan of Care: Orders Procedure Date/time Status TROPONIN LEVEL 12/13 2117 Complete CBC WITHOUT DIFFERENTIAL 12/13 2117 Complete B-TYPE NATRIURETIC PEP (BNP) 12/13 2117 Complete BASIC METABOLIC PANEL 12/13 2117 Complete EKG 12/13 2028 Active Laboratory Tests 12/13/16 2140: Anion Gap 4 L, Estimated GFR > 60, BUN/Creatinine Ratio 21.7, Glucose 80, Calcium 8.5, Troponin I < 0.01, Zmg-I-Gigipdjfkmt Pept 80.4, CBC w Diff NO MAN DIFF REQ, RBC 4.96, MCV 86.1, MCH 27.0, RDW 15.1 H, MPV 7.4, Gran % 71.8, Lymphocytes % 17.6 L, Monocytes % 7.6, Eosinophils % 2.6, Basophils % 0.4, Absolute Granulocytes 6.6 H, Absolute Lymphocytes 1.6, Absolute Monocytes 0.7 H, Absolute Eosinophils 0.2, Absolute Basophils 0, PUBS MCHC 31.4 L Diagnostic Imaging: Discussed w/RAD: Radiology Read. CXR Impression: PATIENT: LORIN RUDD PRESENT AGE : 46 PATIENT ACCOUNT NO: [id number] : 68 LOCATION: [facility] ORDERING PHYSICIAN: TRACE JOHNSON MD SERVICE DATE: 12/13/16 EXAM TYPE: RAD - XRY-PORTABLE CHEST XRAY EXAMINATION: XR PORTABLE CHEST CLINICAL INFORMATION: Dyspnea. Cough. COMPARISON: Chest x-ray 11/28/2016. TECHNIQUE: Portable AP view of the chest was obtained. FINDINGS: Significantly limited exam secondary to patient body habitus and pulmonary hypoinflation. No visible infiltrates. No pleural effusions or pneumothoraces are identified. Cardiomediastinal contours are stable. Soft tissues are unremarkable. No acute osseous abnormality is identified. IMPRESSION: Significantly limited exam. Pulmonary hypoinflation. No acute pulmonary process is identified. DICTATED BY: PAYAL SUAREZ MD DATE/TIME DICTATED:12/13/162154 PACKAGE COLLECTOR:TERRI DATE/TIME TRANSCRIBED:2154 CONFIDENTIAL, DO NOT COPY WITHOUT APPROPRIATE AUTHORIZATION. < Electronically signed in Other Vendor System> SIGNED BY: PAYAL SUAREZ MD 12/13/162158 Initial ED EKG: NSR, rate (91), no ST T wave changes Prior EKG: unchanged Comments: 12/13/2016 10:14:06 PM Lorin has been treated with a DuoNeb nebulizer treatment and be O prednisone. She is feeling better and appears comfortable while at rest on the stretcher. Air entry has improved and she has some slight increase in and expiratory wheezing anteriorly (no wheezing during initial physical examination anteriorly). The wheezing heard posteriorly has resolved. Her oxygen saturation on 2 L nasal cannula is 97% (patient has home oxygen to use as needed ). She has declined another nebulizer treatment at this point so we will check an ambulatory pulse ox and decide on disposition. Departure Departure Disposition: HOME OR SELF CARE Condition: Stable Clinical Impression Primary Impression: Asthma exacerbation Referrals: MYA KILLIAN,MARTELL Blake (PCP/Family) Additional Instructions: Rest, no exertion. Use your home oxygen as needed. Continue your nebulizers every 6 hours and use her rescue inhaler in between. Prednisone as prescribed. Follow-up with your industrial mechanic prior to the end of the prednisone prescription so this can be tapered. Return if any concerns or sudden worsening. Please note that there might be incidental findings in your evaluation that are unrelated to the current emergency department visit. Please notify your primary care doctor about this emergency department visit in order to obtain and review all of the testing performed so that these incidental findings can be monitored as needed. If you had an x-ray performed, please understand that some fractures may not be seen on the initial set of x-rays. If your symptoms persist you might need a repeat set of x-rays to check for such a fracture. If you had a laceration evaluated, please understand that foreign bodies such as glass or wood may not be visible to the naked eye or on plain x-rays. If the wound becomes red, swollen, increasingly more painful or if there is any drainage from the wound, please have it reevaluated by a physician for the possibility of a retained foreign body. Thank you for choosing the [facility] Emergency Department for your care. It was a pleasure to serve you today. Trace Johnson M.D. [facility] Departure Forms: Customer Survey General Discharge Information Prescriptions: Current Visit Scripts Prednisone (Deltasone) 3 TAB PO DAILY #15 TAB Critical Care Note Critical Care Note Critical Care Time: 30-74 min
[2016-12-13 21:46] LABS: ABSOLUTE BASOPHIL COUNT 0 /CUMM (0.0-0.2); ABSOLUTE EOSINOPHIL COUNT 0.2 /CUMM (0.0-0.7); ABSOLUTE GRANULOCYTE CT 6.6 /CUMM (1.4-6.5); ABSOLUTE LYMPH COUNT 1.6 /CUMM (1.2-3.4); ABSOLUTE MONOCYTE COUNT 0.7 /CUMM (0.10-0.60); BASOPHIL % 0.4 % (0.0-2.0); EOSINOPHIL % 2.6 % (0-5); GRANULOCYTE % 71.8 % (42.2-75.2); HEMATOCRIT 42.7 % (37-47); MEAN CORPUSCULAR HGB CONC 31.4 G/DL (33.0-37.0); MEAN CORPUSCULAR VOLUME 86.1 FL (81.0-99.0); MEAN PLATELET VOLUME 7.4 FL (7.4-10.4); PLATELET COUNT 184 /CUMM (130-400); RBC DISTRIBUTION WIDTH 15.1 % (11.5-14.5); RED BLOOD CELL CT 4.96 /CUMM (4.20-5.40); WHITE BLOOD CELL COUNT 9.1 /CUMM (4.8-10.8)
--- NOTE | 2016-12-13 21:59 | RADIOLOGY REPORT ---
EXAMINATION: XR PORTABLE CHEST CLINICAL INFORMATION: Dyspnea. Cough. COMPARISON: Chest x-ray 11/28/2016. TECHNIQUE: Portable AP view of the chest was obtained. FINDINGS: Significantly limited exam secondary to patient body habitus and pulmonary hypoinflation. No visible infiltrates. No pleural effusions or pneumothoraces are identified. Cardiomediastinal contours are stable. Soft tissues are unremarkable. No acute osseous abnormality is identified. IMPRESSION: Significantly limited exam. Pulmonary hypoinflation. No acute pulmonary process is identified.
[2016-12-13] MEDS ORDERED: DELTASONE20 MG PO (23:30)
[2016-12-13 23:34] VITALS: BP 112/75
== END 2016-12-13 23:41 ==
LOC: ERH 20:27
PROVIDERS: Emergency Medicine
DX: J45.901 Unspecified asthma with (acute) exacerbation (principal)
CPT/HCPCS: 1263; 93005; 93010

== ENCOUNTER 2017-01-03 22:28 | Inpatient (IN) | payer OTHER ==
[~2017-01-03] VITALS: Ht 121.9 cm; Wt 90.7 kg
[~2017-01-03 22:28] MED LIST changes: +DELTASONE20 MG PO
--- NOTE | 2017-01-03 22:34 | ED DYSPNEA/ASTHMA COMPLAINT ---
History of Present Illness General Chief Complaint: Wheezing/Asthma Stated Complaint: PT IS HAVING ASTHMA PROBLEM Source: patient Exam Limitations: no limitations Vital Signs & Intake/Output Vital Signs & Intake/Output Vital Signs Date Time Temp Pulse Resp B/P B/P Pulse O2 O2 Flow FiO2 Mean Ox Delivery Rate 01/04 0206 100 22 108/61 91 Nasal 2.0L Cannula 01/030 96 Nasal 2.0L Cannula 01/03 2235 96 Nasal 3.0L Cannula 01/03 2235 97.8 116 28 110/62 84 Room Air ED Intake and Output 01/04 0000 01/03 1200 Intake Total Output Total 400 Balance -400 Output, Urine 400 Allergies Coded Allergies: cat dander (Severe, DYSPNEA 07/17/16) dog dander (DYSPNEA 07/17/16) grass pollen (DIFFICULTY BREATHING 07/17/16) mold (DYSPNEA 07/17/16) ragweed pollen (DYSPNEA 07/17/16) tree and shrub pollen (DIFFICULTY BREATHING 07/17/16) amoxicillin (From Augmentin) (ITCHY 07/17/16) ampicillin (LOW GRADE FEVER 07/17/16) cephalexin (From KEFLEX) (VOMITING 07/17/16) clavulanic acid (From Augmentin) (ITCHY 07/17/16) isoetharine (HEART RATE ELEVATION 07/17/16) Reconcile Medications Albuterol Sulfate (Proventil Hfa) 90 MCG HFA.AER.AD 2 PUF INH Q4 PRN SOB ( Reported) Albuterol Sulfate 2.5 MG/3 ML (0.083 %) VIAL.NEB 1 Vial INH/BRANDON Q4P PRN SOB ( Reported) Fluticasone/Salmeterol (Advair 500-50 Diskus) 500 MCG-50 MCG/DOSE BLST.W.DEV 1 PUF INH BID ASTHMA (Reported) Furosemide 20 MG TABLET 1 TAB PO TID FLUID RETENTION (Reported) Loratadine (Claritin) 10 MG TABLET 1 TAB PO DAILY ALLERGIES (Reported) Prednisone (Deltasone) 20 MG TABLET 3 TAB PO DAILY ASTHMA Prednisone 10 MG TABLET 0 PO AD ASTHMA On Take 11/30-12/01 3 tabs per day 12/02-12/03 2 tabs per day 12/04-12/05 1 tab per day Then Stop Prednisone 20 MG TABLET 1 TAB PO AD PRN STEROID Do not take medication while on prednisone taper during 11/30-12/05. Rivaroxaban (Xarelto) 20 MG TABLET 1 TAB PO DAILY BLOOD THINNER (Reported) with food Solifenacin Succinate (Vesicare) 10 MG TABLET 1 TAB PO DAILY BLADDER ( Reported) Triage Nurses Notes Reviewed? yes Onset: Abrupt Duration: day(s): (1) Timing: multiple episodes today Severity: mild, moderate Associated Symptoms: DYSPNEA HPI: This is a 46-year-old female presents to the ER chief complaint of sudden onset worsening shortness of breath that started this morning. She states that she knew the weather was going to aggravate her breathing so she took her allergy pill earlier. Tonight after meetings that she went to get him in to eat because her blood sugar was dropping and she checked her oxygen saturation in the car before going home and states that it was 74. She took her last dose of prednisone today which was 20 mg. Denies any chest pain fever or chills. Denies any productive cough. Patient was a well-developed admitted history of asthma, and obstructed sleep apnea. She's not compliant with CPAP. Last hospitalization was at the end of November. Patient does not feel confused or altered at this time. (REJI KILLIAN,TRAVIS) Past History Travel History Traveled to [place] past 21 day No Medical History Any Pertinent Medical History? 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 No (TRAVIS MENDOZA MD) Review of Systems Review of Systems Constitutional: Denies: chills, fever. EENTM: Reports: no symptoms. Respiratory: Reports: short of breath. Denies: sputum production. Cardiovascular: Denies: chest pain. GI: Denies: abdominal pain, nausea, vomiting. Genitourinary: Reports: no symptoms. Musculoskeletal: Reports: no symptoms. Skin: Reports: no symptoms. Neurological/Psychological: Reports: see HPI (LIGHTHEADED). Hematologic/Endocrine: Denies: bruising, bleeding, polyuria, polydipsia. Immunologic/Allergic: Reports: no symptoms. All Other Systems: Reviewed and Negative (TRAVIS MENDOZA MD) Physical Exam Physical Exam General Appearance: well developed/nourished, alert, awake Head: atraumatic, normal appearance Eyes: Bilateral: normal appearance, PERRL, EOMI. Ears, Nose, Throat: normal pharynx, normal ENT inspection Neck: normal inspection, supple, full range of motion Respiratory: decreased breath sounds, wheezing, respiratory distress (MILD) Cardiovascular: regular rate/rhythm Peripheral Pulses: 2+ radial (R), 2+ radial (L) Gastrointestinal: OBESE, FIRM Extremities: BILATERAL PEDAL EDEMA Neurologic/Psych: no motor/sensory deficits, awake, alert, oriented x 3 Core Measures ACS in differential dx? No Severe Sepsis Present: No Septic Shock Present: No (TRAVIS MENDOZA MD) Progress Differential Diagnosis: asthma, pneumonia, pneumothorax Plan of Care: Orders Procedure Date/time Status Nothing by Mouth 01/04 B Active Saline Lock 01/04 211 Active Misc Message 01/04 211 Active ED Holding Orders 01/04 211 Active Admit to inpatient 01/04 211 Active Vital Signs 01/04 211 Active Code Status 01/04 211 Active BLOOD CULTURE 01/04 2248 Active RT ED ORDERS 01/03 2237 Active TROPONIN LEVEL 01/03 2237 Complete PARTIAL THROMBOPLASTIN TIME 01/03 2237 Complete PROTHROMBIN TIME 01/03 2237 Complete COMPREHENSIVE METABOLIC PANEL 01/03 2237 Complete CBC WITHOUT DIFFERENTIAL 01/03 2237 Complete B-TYPE NATRIURETIC PEP (BNP) 01/03 2237 Complete EKG 01/03 2237 Active Laboratory Tests 01/03/172234: Anion Gap 9, Estimated GFR > 60, BUN/Creatinine Ratio 21.7, Glucose 118 H, Calcium 8.4, Total Bilirubin 0.6, AST 20, ALT 32, Alkaline Phosphatase 63, Troponin I < 0.01, Opb-W-Wtuonjagmco Pept 225 H, Total Protein 6.1 L, Albumin 3.6, Globulin 2.5, Albumin/Globulin Ratio 1.4, PT 14.5 H, INR 1.39 H, APTT 36, CBC w Diff NO MAN DIFF REQ, RBC 5.34, MCV 84.1, MCH 26.6 L, RDW 16.0 H, MPV 7.4, Gran % 70.1, Lymphocytes % 21.5, Monocytes % 6.6, Eosinophils % 1.0, Basophils % 0.8, Absolute Granulocytes 7.4 H, Absolute Lymphocytes 2.3, Absolute Monocytes 0.7 H, Absolute Eosinophils 0.1, Absolute Basophils 0.1, PUBS MCHC 31.7 L Microbiology 01/04 2248 BLOOD: Blood Culture - ORD 01/03 2235 BLOOD: Blood Culture - RECD Diagnostic Imaging: Viewed by Me: Radiology Read. Discussed w/RAD: Radiology Read. Initial ED EKG: SINUS TACHYCARDIA Prior EKG: unchanged Hand-Off Endorsed To: SARI MERRITT MD Endorsed Time: 2248 Pending: labs, other (REEVALUATION), Xray (TRAVIS MENDOZA MD) Departure Departure Disposition: STILL A PATIENT Condition: Stable Clinical Impression Primary Impression: Asthma exacerbation Secondary Impressions: Respiratory distress Referrals: MYA KILLIAN,MARTELL Blake (PCP/Family) Departure Forms: Customer Survey General Discharge Information (TRAVIS MENDOZA MD) Admission Note Spoke With: SANTANA DALY MD Documentation of Exam: Documentation of any treatments & extenuating circumstances including Concerns Regarding Discharge (functional status, medication knowledge or non-compliance, living conditions, etc.) that warrant an admission rather than observation: pt hypoxic to the 70's, will require 02 support, nebs, iv steroids... pulm consult in AM. (SARI MERRITT MD) Critical Care Note Critical Care Note Critical Care Time: non-applicable (TRAVIS MENDOZA MD)
--- NOTE | 2017-01-03 22:34 | NUR ---
WORSENING SOB TODAY, SATS GOING LOW AT HOME, SAT IN TRIAGE 84% ON RA BROUGHT DIRECTLY TO ROOM 5 DENIES CP/ INSP WHEEZES THROUGHOUT
--- NOTE | 2017-01-03 22:35 | NUR ---
BLOODWORK DRAWN AND SENT TO LAB. LAV BLUE SST BAGLEY PINK
--- NOTE | 2017-01-03 22:52 | NUR ---
PT BROUGHT DIRECTLY TO ROOM 5 FROM TRIAGE. O2 SAT 84% ON RA, PLACED ON 3LNC, O2 SAT INC TO 97%, TITRATED DOWN TO 2LNC, O2 SAT REMAINED 95-97%. RT DIRECTLY TO BEDSIDE FOR TX. MD [facility], PIV ESTABLISHED, MEDICATED WITH 125MG SOLUMEDROL ORDERED. PT REPORTS DIFF BREATHING WORSENING THROUGHOUT THE DAY. INS/EXP WHEEZES NOTED S/P TREATMENT. PT AWAKE/ALERT, INC WOB NOTED. MMM. DENIES CP.
[2017-01-03 22:58] LABS: ABSOLUTE BASOPHIL COUNT 0.1 /CUMM (0.0-0.2); ABSOLUTE EOSINOPHIL COUNT 0.1 /CUMM (0.0-0.7); ABSOLUTE GRANULOCYTE CT 7.4 /CUMM (1.4-6.5); ABSOLUTE LYMPH COUNT 2.3 /CUMM (1.2-3.4); ABSOLUTE MONOCYTE COUNT 0.7 /CUMM (0.10-0.60); BASOPHIL % 0.8 % (0.0-2.0); GRANULOCYTE % 70.1 % (42.2-75.2); HEMATOCRIT 44.9 % (37-47); MEAN CORPUSCULAR HGB 26.6 PG (27.0-31.0); MEAN CORPUSCULAR HGB CONC 31.7 G/DL (33.0-37.0); MEAN CORPUSCULAR VOLUME 84.1 FL (81.0-99.0); MEAN PLATELET VOLUME 7.4 FL (7.4-10.4); PLATELET COUNT 187 /CUMM (130-400); RED BLOOD CELL CT 5.34 /CUMM (4.20-5.40); WHITE BLOOD CELL COUNT 10.5 /CUMM (4.8-10.8)
--- NOTE | 2017-01-03 23:05 | RADIOLOGY REPORT ---
EXAMINATION: XR PORTABLE CHEST CLINICAL INFORMATION: Dyspnea. Hypoxia. COMPARISON: 12/13/2016 TECHNIQUE: Portable AP view of the chest was obtained. FINDINGS: Low lung volumes. Bronchovascular crowding. Bronchial wall thickening. No significant pleural effusion. No pneumothorax. No dense consolidation. The cardiomediastinal silhouette is unchanged. IMPRESSION: Hypoexpanded lungs with bronchovascular crowding. Bronchial wall thickening can be seen with a small airways process such as asthma or atypical/viral infection.
[2017-01-03 23:06] LABS: PT 14.5 SEC (9.4-12.5); PTT 36 SEC (25-37)
--- NOTE | 2017-01-03 23:30 | NUR ---
OOB TO COMMODE--VERY SOB W/EXERTION O2 SAT ON 2L = 90-91
--- NOTE | 2017-01-04 | NUR ---
OOB TO COMMODE SOB W/EXERTION. O2 SAT ON 2L = 90
--- NOTE | 2017-01-04 01:30 | NUR ---
OOB AMB TO BR OFF O2 SOME SOB W/EXERTION, BUT TOLERATING ACTIVITY WELL.
--- NOTE | 2017-01-04 02:10 | NUR ---
PT TO BE ADMITTED TO [facility].
--- NOTE | 2017-01-04 02:35 | NUR ---
PLACED ON CPAP BY RT CHASE
--- NOTE | 2017-01-04 03:10 | NUR ---
HOUSE STAFF HERE TO JOSE LUIS.
--- NOTE | 2017-01-04 03:27 | History & Physical ---
[facility] 01[facility] 0326: General Information and HPI MD Statement: I have seen and personally examined JERRELL TANNER and documented this H&P. The patient is a 46 year old F who presented with a patient stated chief complaint of [SOB]. Source of Information: patient, old records Exam Limitations: no limitations History of Present Illness: Ms. Tanner is a 46 y/o F with PMHx of mild persistent asthma, obesity hypoventilation syndrome, SCOTT on CPAP, DVT and PE s/p IVC filter on Xarelto, diet-controlled T2DM presented to ED with SOB. Patient was feeling some SOB today at am, she was cleaning her house at am, and preparing on of the room for new Cpap machine that she received last Sunday, she took her allergy pill and then she went to breavement meeting her at every thing was fine that time. Today at 8 am she felt SOB, she checked her pulse oximetry at home and found to be 74%, she check it again at parking and found it to be 84%, she report that her symptoms started gradually since the afternoon but become sever at 8pm, it happened while at rest, associted with headache and dry cough , she felt that her mouth is dry but no sore throat, she denies any sick contact at home, no fever, chills, no sore throat, chest pain and there is no change in urinary or bowel habits. She report that she had allergy of dust and mold, she also mention that this season will aggrevate her allergy. Patient was recently discharged from (11/29/16) on prednisone taper, she presented to ED after her dischrge this month (12/13/2016) for SOB and was prescribed another prednisone taper which was finished today. She supposed to used O2 at home but she didn't start yet, she also noncomplaint with Cpap over the last few weeks, she just received a new face mask last Sunday but still she didn't use it . During encounter patient was on Bipap At ED her vitals initially was pertinent to O2 sat of 84% on RA, which improved to 96% on 2L nc Allergies/Medications Allergies: Coded Allergies: cat dander (Severe, DYSPNEA 07/17/16) dog dander (DYSPNEA 07/17/16) grass pollen (DIFFICULTY BREATHING 07/17/16) mold (DYSPNEA 07/17/16) ragweed pollen (DYSPNEA 07/17/16) tree and shrub pollen (DIFFICULTY BREATHING 07/17/16) amoxicillin (From Augmentin) (ITCHY 07/17/16) ampicillin (LOW GRADE FEVER 07/17/16) cephalexin (From KEFLEX) (VOMITING 07/17/16) clavulanic acid (From Augmentin) (ITCHY 07/17/16) isoetharine (HEART RATE ELEVATION 07/17/16) Home Med list Albuterol Sulfate (Proventil Hfa) 90 MCG HFA.AER.AD 2 PUF INH Q4 PRN SOB ( Reported) Albuterol Sulfate 2.5 MG/3 ML (0.083 %) VIAL.NEB 1 Vial INH/BRANODN Q4P PRN SOB ( Reported) Fluticasone/Salmeterol (Advair 500-50 Diskus) 500 MCG-50 MCG/DOSE BLST.W.DEV 1 PUF INH BID ASTHMA (Reported) Furosemide 20 MG TABLET 1 TAB PO TID FLUID RETENTION (Reported) Loratadine (Claritin) 10 MG TABLET 1 TAB PO DAILY ALLERGIES (Reported) Prednisone (Deltasone) 20 MG TABLET 3 TAB PO DAILY ASTHMA Prednisone 10 MG TABLET 0 PO AD ASTHMA On Take 11/30-12/01 3 tabs per day 12/02-12/03 2 tabs per day 12/04-12/05 1 tab per day Then Stop Prednisone 20 MG TABLET 1 TAB PO AD PRN STEROID Do not take medication while on prednisone taper during 11/30-12/05. Rivaroxaban (Xarelto) 20 MG TABLET 1 TAB PO DAILY BLOOD THINNER (Reported) with food Solifenacin Succinate (Vesicare) 10 MG TABLET 1 TAB PO DAILY BLADDER ( Reported) Past History Travel History Traveled to [place] past 21 day No Medical History Neurological: NONE EENT: NONE Cardiovascular: VEIN STRIPPING Respiratory: asthma, obstructive sleep apnea, pulmonary embolism (- non compliants with CPAP), CPAP Gastrointestinal: GERD, umbilical hernia, CELIAC DISEASE Hepatic: NONE Renal: nephrolithiasis Musculoskeletal: fracture, TIBIA CELLULITIS Psychiatric: NONE Endocrine: diabetes ( - diet controlled), hypothyroidism, obesity (- morbid), celiac disease Blood Disorders: DVT 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: bladder prolapse History of MRSA: No History of VRE: No History of CDIFF: No Surgical History Surgical History: open reduction and internal fixation of right tibia fracture Past Family/Social History Family History Relations & Conditions if any MOTHER FH: asthma FATHER FH: COPD (chronic obstructive pulmonary disease) FH: lung cancer FH: prostate cancer BROTHER Relation not specified for: FH: celiac disease FH: coronary artery disease FH: kidney disease Psychosocial History Services at Home: Oxygen Primary Language: Uzbek Functional Ability ADLs Independent: dressing, eating, toileting, bathing. Ambulation: independent IADLs Independent: shopping, housework, finances, food prep, telephone, transportation , medication admin. Review of Systems Review of Systems Constitutional: Reports: no symptoms. EENTM: Reports: no symptoms. Cardiovascular: Reports: no symptoms. Respiratory: Reports: cough, short of breath, wheezing. GI: Reports: no symptoms. Genitourinary: Reports: no symptoms. Musculoskeletal: Reports: joint pain. Skin: Reports: no symptoms. Exam & Diagnostic Data Last 24 Hrs of Vital Signs/I&O Vital Signs Date Time Temp Pulse Resp B/P B/P Pulse O2 O2 Flow FiO2 Mean Ox Delivery Rate 01/04 0346 97.5 96 24 105/65 91 CPAP 01/04 0232 95 92 01/04 0206 100 22 108/61 91 Nasal 2.0L Cannula 01/04 2240 96 Nasal 2.0L Cannula 01/03 2235 96 Nasal 3.0L Cannula 01/03 2235 97.8 116 28 110/62 84 Room Air Intake & Output 01/04 0800 01/04 0000 01/03 1600 Intake Total Output Total 700 400 Balance -700 -400 Output, Urine 700 400 Physical Exam General Appearance Alert, Oriented X3, Cooperative, Moderate Distress Skin No Rashes, No Breakdown, No Significant Lesion HEENT Atraumatic, PERRLA, EOMI Cardiovascular Normal S1, Normal S2 Lungs Normal Air Movement, Bilateral expiratory wheezing Abdomen Normal Bowel Sounds, Soft, No Tenderness Extremities Normal Pulses, SCATTERED EDEMA Vascular Normal Pulses, Pulses Symmetrical Last 24 Hrs of Labs/Neftali: Laboratory Tests 01/03/172234: Anion Gap 9, Estimated GFR > 60, BUN/Creatinine Ratio 21.7, Glucose 118 H, Calcium 8.4, Total Bilirubin 0.6, AST 20, ALT 32, Alkaline Phosphatase 63, Troponin I < 0.01, Lvm-K-Kblyqhwjwym Pept 225 H, Total Protein 6.1 L, Albumin 3.6, Globulin 2.5, Albumin/Globulin Ratio 1.4, PT 14.5 H, INR 1.39 H, APTT 36, CBC w Diff NO MAN DIFF REQ, RBC 5.34, MCV 84.1, MCH 26.6 L, RDW 16.0 H, MPV 7.4, Gran % 70.1, Lymphocytes % 21.5, Monocytes % 6.6, Eosinophils % 1.0, Basophils % 0.8, Absolute Granulocytes 7.4 H, Absolute Lymphocytes 2.3, Absolute Monocytes 0.7 H, Absolute Eosinophils 0.1, Absolute Basophils 0.1, PUBS MCHC 31.7 L Microbiology 01/04 2248 BLOOD: Blood Culture - ORD 01/03 2235 BLOOD: Blood Culture - RECD Diagnostic Data CXR Results IMPRESSION: Hypoexpanded lungs with bronchovascular crowding. Bronchial wall thickening can be seen with a small airways process such as asthma or atypical/viral infection. Assessment/Plan Assessment: Ms. Tanner is a 46 y/o F with PMHx of mild persistent asthma, obesity hypoventilation syndrome, SCOTT on CPAP, DVT and PE s/p IVC filter on Xarelto, diet-controlled T2DM admitted to [facility] floor for acute asthma exacerbation. Assessment: #Acute asthma exacerbation #SCOTT/ noncomplaint with Cpap #OHS #Type 2 DM #Hx. of DVT/ PE on Xarelto Plan: admission TRC/nebs Continue home Lasix regimen of 20 mg 3 times a day Claritin IV Solu-Medrol 40mg Q8h Shortness of breath does not improve consider ABG Pulmonology consult Contniue Xarelto Contniue other home meds Diabetic diet Full code DVT ppx: Xarelto As Ranked By This Provider Problem List: 1. Asthma exacerbation 2. Obesity hypoventilation syndrome 3. Obstructive sleep apnea syndrome Core Measures/Miscellaneous Acute Coronary Syndrome ACS Diagnosis: No Cerebrovascular Accident CVA/TIA Diagnosis: No Congestive Heart Failure CHF Diagnosis: No Venous Thromboembolism VTE Risk Factors: Acute medical illness, Age > 40 [facility] d/t: No contraindications No VTE Pharm Prophylaxis d/t: No contraindications VTE Diagnosis: No VTE Type: NONE VTE Confirmed by (Test): NONE Severe Sepsis Severe Sepsis Present: No Septic Shock Septic Shock Present: No Miscellaneous Documentation Attending Case Discussed With: NICOLE DALY MDMindy Primary Care Physician: MARTELL ROQUE MD Patient sees these Specialists Deckhand: Dr. 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 She was sent home with O2 tank and was asked to use 2L O2 as needed. She recently received a new mask for her CPAP machine, but has not used her machine for past 1 week. She is supposed to use oxygen at bedtime with the CPAP, but is not using it. She was seen in ER on December 13 for same, sent home on prednisone taper last dose of which was today. She reports sudden onset worsening dyspnea, without cough or phlegm. She reports taking joanna-D (fexofenadine+pseudoephedrine) today, and missed lasix dose. She noted her sats were in the high 70's to low 80's at home. On ER arrival, O2 sats were 84% on RA. She works in [employer]. In the ER, she received duonebs, solumedrol and lasix. Vitals: Afebrile, tachycardic to 110's, sats 84% RA --> 96% on 2L. AAO, not altered, able to speak in full sentences. Chest b/l reduced air entry, diffuse expiratory wheeze, Bilateral 1+ pitting edema, chronic venous stasis. Labs: No leukocytosis, bicarb 33, trop neg, CXR hypoexpanded lungs with bronchial wall thickening asthma or atypical/viral infection. EKG: Sinus tachycardia. 1. Acute hypoxic respiratory failure, chronic hypercarbic respiratory failure that is multifactorial 2/2 OHS, sleep apnea, noncompliance with CPAP and mild asthma exacerbation. GM admit, TRC nebs, symbicort, IV steroids, Pulm consult ( Dr. Pepe). Keep O2 sats > 92%. CPAP with oxygen at night and when she is taking a nap discussed with RT. No sedative meds. Resume her home dose of lasix 20 mg TID. DVT ppx Xarelto. Full code.
--- NOTE | 2017-01-04 03:29 | NUR ---
BED 223
--- NOTE | 2017-01-04 04:19 | Admission Certification ---
Admission Certification Certification Statement - As attending physician, I certify that at the time of - admission, based on clinical presentation, severity of - symptoms, need for further diagnostic testing and - therapeutic interventions, and risk of adverse outcomes - without in-hospital treatment, in my clinical assessment, - this patient requires an acute hospital stay for a minimum - of two nights or longer. I have also considered psychsocial - factors such as support system, advanced age, financial - issues, cognitive issues, and failed out-patient treatments, - past re-admission history, safety of patient, and lack of - compliance as applicable. Specific rationale supporting this admission is: Acute hypoxic respiratory failure, chronic hypercarbic failure, asthma exacerbation, obesity hypoventilation syndrome, noncompliance with CPAP.
[2017-01-04 04:26] VITALS: BP 146/78
--- NOTE | 2017-01-04 05:06 | NUR ---
NURSING NOTE: PT ARRIVED TO 2NA VIA STRETCHER @ 0400. PT A&O X3, CALM, AND COOPERATIVE. ON 2L NC SATING 89%. THIS RN INCREASED O2 TO 3L NC, RESPIRATORY AWARE. PT APPEARS SOB @ REST. EDEMA NOTED TO BLE. RASH NOTED UNDER BREAST AND ABDOMINAL FOLDS - PLACED REQUEST FOR NYSTATIN POWDER WITH REGULATORY ASSOCIATE ANNAPEURDY. PT DID NOT WANT TO REMOVE PANTS, LIMITED ASSESSMENT TO SKIN ON BUTTOCKS/COCCYX. ADMISSION ASSESSMENT COMPLETED. PT ORIENTED TO STAFF, ROOM, AND CALL CROSS. RN WILL CONTINUE TO MONITOR.
[2017-01-04 09:02] LABS: ABSOLUTE BASOPHIL COUNT 0 /CUMM (0.0-0.2); ABSOLUTE EOSINOPHIL COUNT 0 /CUMM (0.0-0.7); ABSOLUTE GRANULOCYTE CT 8.3 /CUMM (1.4-6.5); ABSOLUTE LYMPH COUNT 0.6 /CUMM (1.2-3.4); ABSOLUTE MONOCYTE COUNT 0 /CUMM (0.10-0.60); BASOPHIL % 0 % (0.0-2.0); EOSINOPHIL % 0 % (0-5); GRANULOCYTE % 92.9 % (42.2-75.2); HEMATOCRIT 44.4 % (37-47); MEAN CORPUSCULAR HGB 26.9 PG (27.0-31.0); MEAN CORPUSCULAR HGB CONC 31.7 G/DL (33.0-37.0); MEAN PLATELET VOLUME 7.7 FL (7.4-10.4); PLATELET COUNT 165 /CUMM (130-400); RED BLOOD CELL CT 5.22 /CUMM (4.20-5.40)
[2017-01-04 09:40] LABS: WHITE BLOOD CELL COUNT 8.9 /CUMM (4.8-10.8)
[2017-01-04 14:21] VITALS: BP 122/70
--- NOTE | 2017-01-04 15:33 | PN- Att Addend ---
Attending Addendum Attending Brief Note Pt seen and examined with the team at bedside. She is known to me from multiple previous admissions. She has morbid obesity with diabetes/prediabetes, obstructive sleep apnea and asthma on CPAP that she hasn't been using regularly. She also has a history of VTE on Xarelto. She is here with acute hypoxemic respiratory failure as evidenced by a sat of 84% on room air and we are treating her for an acute asthma exacerbation with IV steroids. Clinically she doesn't appear to be in heart failure and her legs are actually less swollen than before. We are continuing her by mouth Lasix and having pulmonary follow her. We'll closely watch her bicarbonate as well.
[2017-01-04 22:53] VITALS: BP 138/60
[2017-01-05 06:30] VITALS: BP 116/68
--- NOTE | 2017-01-05 07:03 | PN- Housestaff ---
SLIME KILLIAN,KAPIL 01/05/17 0702: Subjective Follow-up For: Acute Hypoxic Respiratory Failure Asthma Subjective: Patient seen and examined. She is seen sitting upright in bed resting comfortably maintained on supplemental oxygen via nasal cannula. She appears to be in no acute distress. She reports feeling well and has no new complaints other than mild congestion that she attributes to allergies. She slept well last night and is requesting to be discharged early today. Additionally she denies any headache, fever, chills, chest pain, palpitations, worsening shortness of breath, cough, nausea, vomiting, diarrhea. No overnight events reported. Review of Systems Constitutional: Reports: see HPI. Objective Last 24 Hrs of Vital Signs/I&O Vital Signs Date Time Temp Pulse Resp B/P B/P Pulse O2 O2 Flow FiO2 Mean Ox Delivery Rate 01/05 0630 98.1 87 20 116/68 93 Nasal 2.0L Cannula 01/05 0002 90 94 01/05 0000 93 Nasal 3.0L Cannula 01/04 2253 98.9 90 20 138/60 93 Nasal 3.0L Cannula 01/04 2000 93 Nasal 2.0L Cannula 01/04 1421 97.0 89 20 122/70 99 01/04 0834 Nasal 2.0L Cannula 01/04 0822 93 Nasal 2.0L Cannula 01/04 0821 80 92 Intake & Output 01/05 1600 01/05 0800 01/05 0000 Intake Total 260 Output Total Balance 260 Intake, IV 20 Intake, Oral 240 Physical Exam General Appearance: Alert, Oriented X3, Cooperative, No Acute Distress Other Physical Findings: Generel- well developed, well nourished morbidly obese middle aged woman in no acute distress HEENT- NCAT, PERRL, EOMI, anicteric sclera, moist mucous membranes, nasal cannula in place CVS- S1, S2 w/o m/g/r Resp- Diminished airflow bilaterally with scant wheezing GI- Soft, obese, nontender, nondistended, bowel sounds intact Neuro - Awake and alert, CN II - XII grossly intact Ext- normal pulses, no cyanosis/clubbing/edema Current Medications: Current Medications Sig/Luca Start time Last Medication Dose Route Stop Time Status Admin Acetaminophen 650 MG Q6P PRN 01/04 0330 AC PO Albuterol Sulfate 3 ML TID 01/04 1000 AC 01/04 INH 1908 Albuterol Sulfate 3 ML Q4P PRN 01/04 0345 AC INH Albuterol Sulfate 2 PUF Q4P PRN 01/04 0345 AC INH Budesonide/ 2 PUF BID 01/04 1000 AC 01/05 Formoterol Fumarate INH 0813 Furosemide 20 MG TID 01/04 1000 AC 01/05 PO 0812 Furosemide 20 MG TID 01/04 1000 DC PO Insulin Aspart 0 TIDAC 01/04 1200 DC 01/04 SC 1331 Loratadine 10 MG DAILY 01/04 1000 AC 01/05 PO 0812 Methylprednisolone 40 MG Q8 01/04 0600 AC 01/05 IV 0628 Oxybutynin Chloride 2.5 MG BID 01/04 1000 AC 01/05 PO 0812 Patient Medication 1 ED .ST-MED ONE 01/04 1428 VT Teaching ED 01/04 1429 Rivaroxaban 20 MG DAILY 01/04 1000 AC 01/05 PO 0811 Last 24 Hrs of Lab/Neftali Results Last 24 Hrs of Labs/Mics: Laboratory Tests 01/05/17 0624: Sodium Pending, Potassium Pending, Chloride Pending, Carbon Dioxide Pending, Anion Gap Pending, BUN Pending, Creatinine Pending, BUN/Creatinine Ratio Pending Assessment/Plan Assessment: 46 year old woman with multiple medical problems significant for 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 Hospital Day 2 Patient reports dramatic improvement of her symptoms of shortness of breath and is requesting to be discharged to home. Pulmonology telecom sales consultant recommended addition of spiriva, singular, and to discharge her on a prednisone taper. She was given a dose of diamox prior to discharge. She is to follow up with her transcripter after discharge for further care. Acute Hypoxic Respiratory Failure / Asthma Exacerbation / Seasonal Allergies Patient of pulmonolgist Dr. Beatty of [place]. Endorses history of Asthma and utilizes 2.0L of oxygen at home as needed. She has been admitted multiple times for asthma exacerbations. Patient was reported hypoxic to the 70s-80s at home. She was seen to be saturating at 84% on room air in the ED. CXR demonstrated bronchial wall thickening. -General Medicine -TRC with albuterol/ipratropoum PRN -Supplemental Oxygen, goal >92%, taper as tolerated -Solumedrol changed to Prednisone -Symbicort/Spiriva -Singulair 10mg PO Daily -Claritin 10mg PO Daily -Pulmonology consult -Follow up cultures & sensitivities Non-insulin Dependent Diabetes Mellitus -Accuchecks TIDAC/HS -HbA1c 6.1 -Novolog SSI if sugars consistently high -Hold oral hypoglycemics -Diabetic Diet History of VTE s/p IVC Filter-Xarelto 20mg PO Daily Obstructive Sleep Apnea / Obesity Hypoventilation Syndrome-Nocturnal CPAP Chronic Lower Extremity Swelling-Lasix 20mg PO TID Pain Plan-Acetaminophen Diet-Diabetic Diet DVT PPx-On anticoagulation Code Status-FULL CODE Problem List: 1. Asthma Pain Ratin Pain Location: None Pain Goal: Remain pain free Pain Plan: See assessment Tomorrow's Labs & Rationales: None JERRELL KILLIAN,SARABJIT 01/05/17 1327: Attending MD Review Statement Attending Statement Attending MD Statement: examined this patient, discuss w/resident/PA/NET WEB APPLICATION DEVELOPER, agreed w/resident/PA/NET WEB APPLICATION DEVELOPER, reviewed EMR data (avail), discussed with nursing, discussed with case mgmt, reviewed images Attending Assessment/Plan: Patient is keen on going home today. She was seen and evaluated by Dr. Pepe and by all of us at the bedside. Javon Pepe MD thinks she can go home today on a quick prednisone taper of 10 mg q day. We've also set up a portable oxygen and have stressed compliance with it at all times including compliance with CPAP. Javon Pepe MD recommended adding Singulair, tiotropium to her regimen and giving her 1 dose of Diamox for metabolic alkalosis prior to her leaving. She'll continue on her usual dose of Lasix and she'll follow-up as an outpatient.
--- NOTE | 2017-01-05 09:45 | Cons- Pulmonary ---
General Information and HPI Consulting Request Date of Consult: 01/05/17 Requested By: MED TEAM History of Present Illness: Ms. Tanner is a 46 y/o F with PMHx of mild persistent asthma, obesity hypoventilation syndrome, SCOTT on CPAP, DVT and PE s/p IVC filter on Xarelto, diet-controlled T2DM presented to ED with SOB. Patient was feeling some SOB today at am, she was cleaning her house and she had sig sob with hypoxia, and she report that her symptoms started gradually since the afternoon but become sever at 8pm, it happened while at rest, associted with headache and dry cough , she felt that her mouth is dry but no sore throat, she denies any sick contact at home, no fever, chills, no sore throat, chest pain and there is no change in urinary or bowel habits. She report that she had allergy of dust and mold, she also mention that this season will aggrevate her allergy. Patient was recently discharged from (11/29/16) on prednisone taper, she presented to ED after her dischrge this month (12/13/2016) for SOB and was prescribed another prednisone taper which was finished today. She supposed to used O2 at home but she didn't start yet, she also noncomplaint with Cpap over the last few weeks, she just received a new face mask last Sunday but still she didn't use it . Much improved since admission Pt has not been using her cpap at home and she has a new machine and a new mask Review of Systems Constitutional: Reports: no symptoms. EENTM: Reports: no symptoms. Cardiovascular: Reports: no symptoms. Respiratory: Reports: cough, short of breath, wheezing. GI: Reports: no symptoms. Genitourinary: Reports: no symptoms. Musculoskeletal: Reports: joint pain. Skin: Reports: no symptoms. Allergies/Medications Allergies: Coded Allergies: cat dander (Severe, DYSPNEA 07/17/16) dog dander (DYSPNEA 07/17/16) grass pollen (DIFFICULTY BREATHING 07/17/16) mold (DYSPNEA 07/17/16) ragweed pollen (DYSPNEA 07/17/16) tree and shrub pollen (DIFFICULTY BREATHING 07/17/16) amoxicillin (From Augmentin) (ITCHY 07/17/16) ampicillin (LOW GRADE FEVER 07/17/16) cephalexin (From KEFLEX) (VOMITING 07/17/16) clavulanic acid (From Augmentin) (ITCHY 07/17/16) isoetharine (HEART RATE ELEVATION 07/17/16) Home Med List: Albuterol Sulfate (Proventil Hfa) 90 MCG HFA.AER.AD 2 PUF INH Q4 PRN SOB ( Reported) Albuterol Sulfate 2.5 MG/3 ML (0.083 %) VIAL.NEB 1 Vial INH/BRANDON Q4P PRN SOB ( Reported) Fluticasone/Salmeterol (Advair 500-50 Diskus) 500 MCG-50 MCG/DOSE BLST.W.DEV 1 PUF INH BID ASTHMA (Reported) Furosemide 20 MG TABLET 1 TAB PO TID FLUID RETENTION (Reported) Loratadine (Claritin) 10 MG TABLET 1 TAB PO DAILY ALLERGIES (Reported) Prednisone (Deltasone) 20 MG TABLET 3 TAB PO DAILY ASTHMA Prednisone 10 MG TABLET 0 PO AD ASTHMA On Take 11/30-12/01 3 tabs per day 12/02-12/03 2 tabs per day 12/04-12/05 1 tab per day Then Stop Prednisone 20 MG TABLET 1 TAB PO AD PRN STEROID Do not take medication while on prednisone taper during 11/30-12/05. Rivaroxaban (Xarelto) 20 MG TABLET 1 TAB PO DAILY BLOOD THINNER (Reported) with food Solifenacin Succinate (Vesicare) 10 MG TABLET 1 TAB PO DAILY BLADDER ( Reported) Review of Systems Review of Systems Constitutional: Reports: see HPI. Past History Travel History Traveled to [place] past 21 day No Medical History Blood Transfusion Hx: No Neurological: NONE EENT: NONE Cardiovascular: VEIN STRIPPING Respiratory: asthma, obstructive sleep apnea, pulmonary embolism (- non compliants with CPAP), CPAP Gastrointestinal: GERD, umbilical hernia, CELIAC DISEASE Hepatic: NONE Renal: nephrolithiasis Musculoskeletal: fracture, TIBIA CELLULITIS Psychiatric: NONE Endocrine: diabetes ( - diet controlled), hypothyroidism, obesity (- morbid), celiac disease Blood Disorders: DVT Cancer(s): NONE CONDENSER TUBE TENDER/Reproductive: bladder prolapse Surgical History Surgical History: open reduction and internal fixation of right tibia fracture Family History Relations & Conditions If Any: MOTHER FH: asthma FATHER FH: COPD (chronic obstructive pulmonary disease) FH: lung cancer FH: prostate cancer BROTHER Relation not specified for: FH: celiac disease FH: coronary artery disease FH: kidney disease Psychosocial History Services at Home: Oxygen Primary Language: Armenian Smoking Status: Former Smoker Functional Ability ADLs Independent: dressing, eating, toileting, bathing. Ambulation: independent IADLs Independent: shopping, housework, finances, food prep, telephone, transportation , medication admin. Exam & Diagnostic Data Last 24 Hrs of Vital Signs/I&O Vital Signs Date Time Temp Pulse Resp B/P B/P Pulse O2 O2 Flow FiO2 Mean Ox Delivery Rate 01/05 0852 95 Nasal 2.0L Cannula 01/05 0800 Nasal 3.0L Cannula 01/05 0630 98.1 87 20 116/68 93 Nasal 2.0L Cannula 01/05 0002 90 94 01/05 0000 93 Nasal 3.0L Cannula 01/04 2253 98.9 90 20 138/60 93 Nasal 3.0L Cannula 01/04 2000 93 Nasal 2.0L Cannula 01/04 1421 97.0 89 20 122/70 99 Intake & Output 01/05 1600 01/05 0800 01/05 0000 Intake Total 0 260 Output Total Balance 0 260 Intake, IV 0 20 Intake, Oral 0 240 Number 0 Bowel Movements Last 48 Hrs of Labs/Neftali: Laboratory Tests 01/05/17 0624: Anion Gap 8, Estimated GFR > 60, BUN/Creatinine Ratio 30.0 H 01/04/17 0815: Anion Gap 7, Estimated GFR > 60, BUN/Creatinine Ratio 34.0 H, CBC w Diff NO MAN DIFF REQ, RBC 5.22, MCV 85.0, MCH 26.9 L, RDW 16.0 H, MPV 7.7, Gran % 92.9 H, Lymphocytes % 6.8 L, Monocytes % 0.3 L, Eosinophils % 0, Basophils % 0 L, Absolute Granulocytes 8.3 H, Absolute Lymphocytes 0.6 L, Absolute Monocytes 0 L, Absolute Eosinophils 0, Absolute Basophils 0, PUBS MCHC 31.7 L 01/03/17 2235: Anion Gap 9, Estimated GFR > 60, BUN/Creatinine Ratio 21.7, Glucose 118 H, Calcium 8.4, Total Bilirubin 0.6, AST 20, ALT 32, Alkaline Phosphatase 63, Troponin I < 0.01, [id number] Pept 225 H, Total Protein 6.1 L, Albumin 3.6, Globulin 2.5, Albumin/Globulin Ratio 1.4, PT 14.5 H, INR 1.39 H, APTT 36, CBC w Diff NO MAN DIFF REQ, RBC 5.34, MCV 84.1, MCH 26.6 L, RDW 16.0 H, MPV 7.4, Gran % 70.1, Lymphocytes % 21.5, Monocytes % 6.6, Eosinophils % 1.0, Basophils % 0.8, Absolute Granulocytes 7.4 H, Absolute Lymphocytes 2.3, Absolute Monocytes 0.7 H, Absolute Eosinophils 0.1, Absolute Basophils 0.1, PUBS MCHC 31.7 L Assessment/Plan Impression/Plan: Physical Exam General Appearance Alert, Oriented X3, Cooperative, mild distress Skin No Rashes, No Breakdown, No Significant Lesion HEENT Atraumatic, PERRLA, EOMI Cardiovascular Normal S1, Normal S2 Lungs Normal Air Movement, Bilateral expiratory wheezing Abdomen Normal Bowel Sounds, Soft, No Tenderness Extremities Normal Pulses, SCATTERED EDEMA Vascular Normal Pulses, Pulses Symmetrical This is a lady with very severe morbid obesity, chronic hypercarbic respiratory failure with severe obstructive sleep apnea with obesity hypoventilation syndrome, mild asthma, chronic venostasis with lower extremity chronic cellulitis, remote history of extensive pulmonary embolism involving the right pulmonary artery in 2009 since then multiple CTs have been negative for any venous thromboembolism patient is on xeralto for prevention of venous thromboembolism now has * Resolved Acute on chronic respiratory hypercarbic failure related to worsening obesity hypoventilation syndrome which is complicated by, mild asthma exacerbation due to prob allergen exposure with hypoventilation with noncompliance as outpatient with CPAP * Corpulmonale with fluid overload improving * Mild persistant asthma with exacerbation now better * Previous history of significant pulmonary embolism now on appropriate anticoagulation for prevention * Severe morbid obesity with bedtime hypoxia, pt supposed to be on oxygen at hs with cpap but she is not using it * No significant evidence suggestive of active pneumonitis or bacterial infection * Chronic pain syndrome * Significant lower extremity edema with chronic venous insufficiency with intertrigo on medications but appears better than her previous admission REC Po steroids and taper slowly, 50 qd and taper to 5 mg CPAP wih oxygen daily and pt is aware to use it Continue inhalers use Symbicort as she was on Advair at home 2 puffs twice a day Continue anticoagulation Increase activity COnt diuresis Add spiriva qd Give one dose of diamox today po 250 Stable for dc soon Low carb diet Consult Acknowledgment - Thank you for your consult request.
[2017-01-05] MEDS ORDERED: SPIRIVA18 MCG INH (10:53)
[2017-01-05] MEDS ORDERED: SINGULAIR10 M1 PO (10:53)
[2017-01-05] MEDS ORDERED: PREDNISONE10 M2 PO ×2 (10:53→10:55)
--- NOTE | 2017-01-05 10:59 | Patient Discharge Instructions ---
Discharge Instructions General Discharge Information Special Instructions: Start taking Singular and Spiriva as directed. Take the prednisone taper as directed. Youve been provieded additional medication. Continue all your previous home medications, if you have other supplies of prednisone at home do not utilize them. Follow up with your primary care provider and solid surface fabricator after discharge. Acute Coronary Syndrome Inclusion Criteria At DC or during hospital stay patient has or had the following: ACS DIAGNOSIS No Discharge Core Measures Meds if any: Prescribed or Continued at Discharge Meds if any: NOT Prescribed or Continued at Discharge Congestive Heart Failure Inclusion Criteria At DC or during hospital stay patient has or had the following: CHF DIAGNOSIS No Discharge Core Measures Meds if any: Prescribed or Continued at Discharge Meds if any: NOT Prescribed or Continued at Discharge Cerebrovascular accident Inclusion Criteria At DC or during hospital stay patient has or had the following: CVA/TIA Diagnosis No Discharge Core Measures Meds if any: Prescribed or Continued at Discharge Meds if any: NOT Prescribed or Continued at Discharge Venous thromboembolism Inclusion Criteria VTE Diagnosis No VTE Type NONE VTE Confirmed by (Test) NONE Discharge Core Measures - Per Current guidelines, there needs to be overlap - treatment for the first 5 days of Warfarin therapy. - If discharged on Warfarin prior to 5 days of - overlap therapy, the patient will need to be - assessed for post discharge needs including - *Post discharge parental anticoagulation - *Warfarin and/or parental anticoagulation education - *Follow up date to check INR post discharge At least 5 days overlap therapy as Inpatient No Meds if any: Prescribed or Continued at Discharge Note: Overlap Therapy is Warfarin and Anticoagulant Meds if any: NOT Prescribed or Continued at Discharge
--- NOTE | 2017-01-05 15:28 | NUR ---
PATIENT READY FOR D/C. [facility] WOULD NOT LET ME FINALIZE D/C. [facility] AT [facility] SUPPORT CALLED AT 1200. PROBLEM STILL NOT RESOLVED. D/C INSTRUCTIONS ABLE TO PRINT. DC HANDOUT GIVEN TO PATIENT.
--- NOTE | 2017-01-10 17:37 | Discharge Summary ---
Visit Information Visit Dates Admission Date: 01/04/17 Discharge Date: 01/05/17 Hospital Course Course Attending Physician: JERRELL KILLIAN,SARABJIT Pennington Primary Care Physician: MYA KILLIAN,MARTELL Blake Consulting Request: Consulting Specialty: Pulmonary Disease Hospital Course: 46 year old woman with past medical history of asthma, obesity hypoventilation syndrome, obstructive sleep apnea on CPAP, DVT/PE s/p IVC filter on Xarelto, NIDDM seen for evaluation of shortness of breath. Patient was recently discharged from (11/29/16) on prednisone taper, she presented to ED after her dischrge this month (12/13/2016) for SOB and was prescribed another prednisone taper which was finished today. She supposed to used O2 at home but she didn't start yet, she also noncomplaint with Cpap over the last few weeks, she just received a new face mask last Sunday but still she didn't use it . Acute Hypoxic Respiratory Failure / Asthma Exacerbation / Seasonal Allergies Patient of pulmonolgist Dr. Beatty of [place]. Endorses history of Asthma and utilizes 2.0L of oxygen at home as needed. She has been admitted multiple times for asthma exacerbations. Patient was reported hypoxic to the 70s-80s at home. She was seen to be saturating at 84% on room air in the ED. CXR demonstrated bronchial wall thickening. Patient was admitted to the general medicine floor and continued on intravenous solumedrol. Pulmonology consult was placed whom recommended converted patient to oral steroids and to continue her other pulmonary medications. She had a dramatic recovering with the prescribed regimen and was discharged to home on an oral steroid taper with instruction to follow up with her primary care provider and unit trust manager after discharge. Allergies: Coded Allergies: cat dander (Severe, DYSPNEA 07/17/16) dog dander (DYSPNEA 07/17/16) grass pollen (DIFFICULTY BREATHING 07/17/16) mold (DYSPNEA 07/17/16) ragweed pollen (DYSPNEA 07/17/16) tree and shrub pollen (DIFFICULTY BREATHING 07/17/16) amoxicillin (From Augmentin) (ITCHY 07/17/16) ampicillin (LOW GRADE FEVER 07/17/16) cephalexin (From KEFLEX) (VOMITING 07/17/16) clavulanic acid (From Augmentin) (ITCHY 07/17/16) isoetharine (HEART RATE ELEVATION 07/17/16) Significant Procedures: SERVICE DATE: 01/03/17 EXAM TYPE: RAD - XRY-PORTABLE CHEST XRAY IMPRESSION: Hypoexpanded lungs with bronchovascular crowding. Bronchial wall thickening can be seen with a small airways process such as asthma or atypical/viral infection. Disposition Summary Disposition Principal Diagnosis: Asthma Exacerbation Acute Hypoxic Respiratory Failure Additional Diagnosis: Morbid Obesity Obesity Hypoventiliation Syndrome Obstructive Sleep Apnea Discharge Disposition: home or self care Discharge Instructions General Discharge Information Code Status: Full Code Patient's Diet: Low carb diet Patient's Activity: Full activity as tolerated Follow-Up Instructions/Appts: Start taking Singular and Spiriva as directed. Take the prednisone taper as directed. Youve been provieded additional medication. Continue all your previous home medications, if you have other supplies of prednisone at home do not utilize them. Follow up with your primary care provider and unit trust manager after discharge. Medications at Discharge Discharge Medications: Stop taking the following medications: Prednisone (Prednisone) 10 MG TABLET ORAL As Directed Qty = 12 Prednisone (Prednisone) 20 MG TABLET ORAL As Directed as needed for STEROID Qty = 10 Prednisone (Deltasone) 20 MG TABLET ORAL DAILY Qty = 15 Continue taking these medications: Albuterol Sulfate (Proventil Hfa) 90 MCG HFA.AER.AD 2 Puff Inhale through mouth Every 4 hours as needed for SOB Comments: NOT GIVEN Rivaroxaban (Xarelto) 20 MG TABLET 1 Tablet ORAL DAILY Instructions: with food Comments: Last Taken: 01/05/17 Time: 0800AM Solifenacin Succinate (Vesicare) 10 MG TABLET 1 Tablet ORAL DAILY Comments: Last Taken: NOT GIVEN DURING THIS ADMISSION Time: Albuterol Sulfate (Albuterol Sulfate) 2.5 MG/3 ML (0.083 %) VIAL.NEB 1 Vial Inhale Solution EVERY 4 HOURS NEEDED as needed for SOB Comments: Last Taken: 01/05/17 Time: 8:00 AM Fluticasone/Salmeterol (Advair 500-50 Diskus) 500 MCG-50 MCG/DOSE BLST.W.DEV 1 Puff Inhale through mouth TWICE DAILY Qty = 180 Comments: SYMBICORT GIVEN 01/05/17 @0800AM Loratadine (Claritin) 10 MG TABLET 1 Tablet ORAL DAILY Comments: Last Taken: 01/05/17 Time: 0800AM Furosemide (Furosemide) 20 MG TABLET 1 Tablet ORAL THREE TIMES DAILY Comments: Last Taken: 01/05/17 Time: 8:00 AM Start taking the following new medications: Prednisone (Prednisone) 10 MG TABLET 1 Tablet ORAL TWICE DAILY Qty = 20 No Refills Instructions: Take 4 tablets on 01/06/17 Take 3 tablets on 01/07/17 Take 2 tablets on 01/08/17 Take 1 tablet on 01/09/17 Tiotropium Pringle (Spiriva) 18 MCG CAP.W.DEV 1 Capsule Inhale through mouth DAILY Qty = 30 No Refills Montelukast Sodium (Singulair) 10 MG TABLET 1 Tablet ORAL DAILY Qty = 30 No Refills Copies To: KARINA KILLIAN,NAKUL [place]; JOSE KILLIAN,VALE Mcneill
== END 2017-01-05 16:00 | DRG 202 ==
LOC: ERH 22:28 → ERHI 01-04 02:11 → 2NA 01-04 02:11 → ENRESERV 01-04 03:20 → 2NA 01-04 04:11 → ENPENDDIS 01-05 11:02 → 2NA 01-05 16:00
PROVIDERS: Emergency Medicine; Student in an Organized Health Care Education/Training Program; ADMIT Student in an Organized Health Care Education/Training Program
PROC: 5A09357 Assistance with Respiratory Ventilation, Less than 24 Consecutive Hours, Continuous Positive Airway Pressure (ICD-10-PCS; principal; 2017-01-04)
DX: J45.31 Mild persistent asthma with (acute) exacerbation (principal); J96.21 Acute and chronic respiratory failure with hypoxia; E87.3 Alkalosis; I27.81 Cor pulmonale (chronic); E66.2 Morbid (severe) obesity with alveolar hypoventilation; Z68.44 Body mass index [BMI] 60.0-69.9, adult; E11.9 Type 2 diabetes mellitus without complications; Z86.718 Personal history of other venous thrombosis and embolism; Z86.711 Personal history of pulmonary embolism; Z79.01 Long term (current) use of anticoagulants; K21.9 Gastro-esophageal reflux disease without esophagitis; E03.9 Hypothyroidism, unspecified; Z87.891 Personal history of nicotine dependence; I87.2 Venous insufficiency (chronic) (peripheral)
CPT/HCPCS: 2NASP; 82436; 87040; 93005; 93010; 94799; 96374; 96375; J1940; J2920; J2930; J3490

== ENCOUNTER 2017-02-19 01:48 | Emergency (ER) | payer OTHER ==
[~2017-02-19] VITALS: Ht 142.2 cm; Wt 134.3 kg
[~2017-02-19 01:48] MED LIST changes: +SINGULAIR10 M1 PO; +SPIRIVA18 MCG INH
[2017-02-19 02:11] VITALS: BP 116/77
--- NOTE | 2017-02-19 02:55 | ED INFLUENZA/URI COMPLAINT ---
History of Present Illness General Chief Complaint: General Adult Stated Complaint: "PER PT SINUS INFECTION" Source: patient, family Exam Limitations: no limitations Vital Signs & Intake/Output Vital Signs & Intake/Output Vital Signs Date Time Temp Pulse Resp B/P B/P Pulse O2 O2 Flow FiO2 Mean Ox Delivery Rate 02/194 92 Room Air 02/19 211 97.6 111 18 116/77 92 Room Air Allergies Coded Allergies: cat dander (Severe, DYSPNEA 07/17/16) dog dander (DYSPNEA 07/17/16) grass pollen (DIFFICULTY BREATHING 07/17/16) mold (DYSPNEA 07/17/16) ragweed pollen (DYSPNEA 07/17/16) tree and shrub pollen (DIFFICULTY BREATHING 07/17/16) amoxicillin (From Augmentin) (ITCHY 07/17/16) ampicillin (LOW GRADE FEVER 07/17/16) cephalexin (From KEFLEX) (VOMITING 07/17/16) clavulanic acid (From Augmentin) (ITCHY 07/17/16) isoetharine (HEART RATE ELEVATION 07/17/16) Reconcile Medications Albuterol Sulfate 2.5 MG/3 ML (0.083 %) VIAL.NEB 1 Vial INH/BRANDON Q4P PRN SOB ( Reported) Albuterol Sulfate (Proventil Hfa) 90 MCG HFA.AER.AD 2 PUF INH Q4 PRN SOB ( Reported) Fluticasone/Salmeterol (Advair 500-50 Diskus) 500 MCG-50 MCG/DOSE BLST.W.DEV 1 PUF INH BID ASTHMA (Reported) Furosemide 20 MG TABLET 1 TAB PO TID FLUID RETENTION (Reported) Loratadine (Claritin) 10 MG TABLET 1 TAB PO DAILY ALLERGIES (Reported) Montelukast Sodium (Singulair) 10 MG TABLET 1 TAB PO DAILY ASTHMA Prednisone (Deltasone) 20 MG TABLET 3 TAB PO DAILY ASTHMA Prednisone 10 MG TABLET 0 PO AD ASTHMA On Take 11/30-12/01 3 tabs per day 12/02-12/03 2 tabs per day 12/04-12/05 1 tab per day Then Stop Prednisone 20 MG TABLET 1 TAB PO AD PRN STEROID Do not take medication while on prednisone taper during 11/30-12/05. Prednisone 10 MG TABLET 1 TAB PO BID ASTHMA Take 4 tablets on 01/06/17 Take 3 tablets on 01/07/17 Take 2 tablets on 01/08/17 Take 1 tablet on 01/09/17 Rivaroxaban (Xarelto) 20 MG TABLET 1 TAB PO DAILY BLOOD THINNER (Reported) with food Solifenacin Succinate (Vesicare) 10 MG TABLET 1 TAB PO DAILY BLADDER ( Reported) Tiotropium [place] (Spiriva) 18 MCG CAP.W.DEV 1 CAP INH DAILY ASTHMA Triage Note: TRIAGE: C/O SINUS INFX, FRONTAL AND TEMPORAL HEADACHE X6 DAYS, NOW FEELS LIKE IT IS RADIATING INTO NECK, MINIMAL RELIEF WITH USE EXCEDRINE. REPORTS PAIN WITH PALPATION OF FRONTAL SINUSES, PAIN INTO BILAT EARS. "IM IN THE PROCESS OF CHANGING PRIMARY DOCTORS." DENIES VISUAL CHANGES. DENIES PHOTOSENSITIVITY. DENIES COUGH OR WORSENING SOB FROM BASELINE. PT WITH SIGNIFICANT HX ASTHMA AND COPD. 91-92% RA, SPEAKING IN FULL CLEAR SENTENCES WITHOUT DISTRESS Triage Nurses Notes Reviewed? yes Onset: Gradual Duration: day(s):, waxing and waning Timing: recent history Severity: mild Prior Episodes/Possible Cause: occassional episodes Modifying Factors: Improves With: rest. Associated Symptoms: cough, nasal congestion, nasal drainage HPI: 46 yo woman presents with 6-7 day history of sinus congestion. She notes, "I have allergies... my nose is stuffy... but it feels like it's worse and I have pain... like I have sinusitis." She notes no nausea, vomiting, fever, chills, chest pain, sores throat. She is otherwise well. Past History Travel History Traveled to [place] past 21 day No Medical History Any Pertinent Medical History? 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: bladder prolapse History of MRSA: No History of VRE: No History of CDIFF: No Influenza Vaccine: 06/22/16 Surgical History Surgical History: open reduction and internal fixation of right tibia fracture Psychosocial History Who do you live with Patient and family Services at Home Oxygen What is your primary language Thai Tobacco Use: Quit >30 days ago Family History Family History, If Any: MOTHER FH: asthma FATHER FH: COPD (chronic obstructive pulmonary disease) FH: lung cancer FH: prostate cancer BROTHER Relation not specified for: FH: celiac disease FH: coronary artery disease FH: kidney disease Hx Contributory? No Review of Systems Review of Systems Constitutional: Reports: no symptoms. EENTM: Reports: no symptoms. Respiratory: Reports: no symptoms. Cardiovascular: Reports: no symptoms. GI: Reports: no symptoms. Genitourinary: Reports: no symptoms. Musculoskeletal: Reports: no symptoms. Skin: Reports: no symptoms. Neurological/Psychological: Reports: no symptoms. Hematologic/Endocrine: Reports: no symptoms. Immunologic/Allergic: Reports: no symptoms. All Other Systems: Reviewed and Negative Physical Exam Physical Exam General Appearance: well developed/nourished, no apparent distress Head: atraumatic Eyes: Bilateral: normal appearance. Ears, Nose, Throat: nasal congestion, mild frontal sinus tenderness to palpation. Neck: normal inspection, supple Respiratory: normal breath sounds Cardiovascular: regular rate/rhythm Back: normal inspection Extremities: normal inspection Neurologic/Psych: no motor/sensory deficits, awake, alert, oriented x 3 Skin: intact, normal color, warm/dry Core Measures Severe Sepsis Present: No Septic Shock Present: No Progress Differential Diagnosis: otitis, pharyngitis, sinusitis Plan of Care: discussed at length... gave rx for azithro... advised supportive measures for next 24 hours and then to take abx if not better. Initial ED EKG: none Departure Departure Disposition: HOME OR SELF CARE Condition: Stable Clinical Impression Primary Impression: Sinusitis Referrals: MYA KILLIAN,MARTELL Blake (PCP/Family) Departure Forms: Customer Survey General Discharge Information
== END 2017-02-19 02:22 ==
LOC: ERH 01:48
DX: J32.9 Chronic sinusitis, unspecified (principal); Z87.891 Personal history of nicotine dependence

== ENCOUNTER 2017-03-18 20:08 | Inpatient (IN) | payer OTHER ==
[~2017-03-18] VITALS: Ht 142.2 cm; Wt 131.1 kg
--- NOTE | 2017-03-18 20:12 | NUR ---
SOB SINCE THIS AM, FEELS LIKE SHE CAN'T CATCH HER BREATH. AMBULATORY O2 SAT 85% AND DYSPNIC, 02 SAT IMPROVED TO 90% AT REST. USED NEB TX AT HOME WITH MINIMAL IMPROVEMENT AND IS WORRIED BECAUSE O2 SAT AT HOME DROPPED TO 50%; UNSURE IF BATTERIES ARE BAD. PT WITH SIGNIFICANT HX ASTHMA AND SOB. DENIES CP. C/O "STOMACH ACTING FUNNY" BUT DID NOT VOMIT. DENIES SYMPTOMS. AFEBRILE
--- NOTE | 2017-03-18 20:22 | ED DYSPNEA/ASTHMA COMPLAINT ---
History of Present Illness General Chief Complaint: Dyspnea (COPD, CHF, Other) Stated Complaint: SOB Source: patient Exam Limitations: no limitations Vital Signs & Intake/Output Vital Signs & Intake/Output Vital Signs Date Time Temp Pulse Resp B/P B/P Pulse O2 O2 Flow FiO2 Mean Ox Delivery Rate 03/18 2258 100.4 102 20 130/76 90 Room Air 03/18 2052 92 Nasal Cannula 03/18 2044 94 Nasal 2.0L Cannula 03/18 2015 97.7 112 24 122/79 91 Room Air ED Intake and Output 03/19 0000 03/18 1200 Intake Total Output Total Balance Patient 310 lb Weight Weight Estimated Measurement Method Allergies Coded Allergies: cat dander (Severe, DYSPNEA 07/17/16) dog dander (DYSPNEA 07/17/16) grass pollen (DIFFICULTY BREATHING 07/17/16) mold (DYSPNEA 07/17/16) ragweed pollen (DYSPNEA 07/17/16) tree and shrub pollen (DIFFICULTY BREATHING 07/17/16) amoxicillin (From Augmentin) (ITCHY 07/17/16) ampicillin (LOW GRADE FEVER 07/17/16) cephalexin (From KEFLEX) (VOMITING 07/17/16) clavulanic acid (From Augmentin) (ITCHY 07/17/16) isoetharine (HEART RATE ELEVATION 07/17/16) Reconcile Medications Albuterol Sulfate 2.5 MG/3 ML (0.083 %) VIAL.NEB 1 Vial INH/BRANDON Q4P PRN SOB ( Reported) Albuterol Sulfate (Proventil Hfa) 90 MCG HFA.AER.AD 2 PUF INH Q4 PRN SOB ( Reported) Fluticasone/Salmeterol (Advair 500-50 Diskus) 500 MCG-50 MCG/DOSE BLST.W.DEV 1 PUF INH BID ASTHMA (Reported) Furosemide 20 MG TABLET 1 TAB PO TID FLUID RETENTION (Reported) Loratadine (Claritin) 10 MG TABLET 1 TAB PO DAILY ALLERGIES (Reported) Montelukast Sodium (Singulair) 10 MG TABLET 1 TAB PO DAILY ASTHMA Prednisone (Deltasone) 20 MG TABLET 3 TAB PO DAILY ASTHMA Prednisone 10 MG TABLET 0 PO AD ASTHMA On Take 11/30-12/01 3 tabs per day 12/02-12/03 2 tabs per day 12/04-12/05 1 tab per day Then Stop Prednisone 20 MG TABLET 1 TAB PO AD PRN STEROID Do not take medication while on prednisone taper during 11/30-12/05. Prednisone 10 MG TABLET 1 TAB PO BID ASTHMA Take 4 tablets on 01/06/17 Take 3 tablets on 01/07/17 Take 2 tablets on 01/08/17 Take 1 tablet on 01/09/17 Rivaroxaban (Xarelto) 20 MG TABLET 1 TAB PO DAILY BLOOD THINNER (Reported) with food Solifenacin Succinate (Vesicare) 10 MG TABLET 1 TAB PO DAILY BLADDER ( Reported) Tiotropium [place] (Spiriva) 18 MCG CAP.W.DEV 1 CAP INH DAILY ASTHMA Triage Note: SOB SINCE THIS AM, FEELS LIKE SHE CAN'T CATCH HER BREATH. AMBULATORY O2 SAT 85% AND DYSPNIC, 02 SAT IMPROVED TO 90% AT REST. USED NEB TX AT HOME WITH MINIMAL IMPROVEMENT AND IS WORRIED BECAUSE O2 SAT AT HOME DROPPED TO 50%; UNSURE IF BATTERIES ARE BAD. PT WITH SIGNIFICANT HX ASTHMA AND SOB. DENIES CP. C/O "STOMACH ACTING FUNNY" BUT DID NOT VOMIT. DENIES SYMPTOMS. AFEBRILE Triage Nurses Notes Reviewed? yes Onset: Gradual Duration: day(s): Timing: recent history Severity: mild Activities at Onset: none Prior Episodes/Possible Cause: frequent episodes Modifying Factors: Improves With: rest. Associated Symptoms: cough, wheezing HPI: 47 yo woman h/o SCOTT, asthma, home 02 intermittently, presents with cough, wheezing since 2am this morning. She notes, "I gave myself a treatment and then felt better... My oxygen level is usually 88-90's, but it got down into the low 80's.... My allergies are really acting up." She is otherwise well, without chest pain, fever, chills, sputum. Past History Travel History Traveled to [place] past 21 day No Medical History Any Pertinent Medical History? 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 No Review of Systems Review of Systems Constitutional: Reports: no symptoms. EENTM: Reports: no symptoms. Respiratory: Reports: no symptoms. Cardiovascular: Reports: no symptoms. GI: Reports: no symptoms. Genitourinary: Reports: no symptoms. Musculoskeletal: Reports: no symptoms. Skin: Reports: no symptoms. Neurological/Psychological: Reports: no symptoms. Hematologic/Endocrine: Reports: no symptoms. Immunologic/Allergic: Reports: no symptoms. All Other Systems: Reviewed and Negative Physical Exam Physical Exam General Appearance: well developed/nourished, mild distress Head: atraumatic, normal appearance Eyes: Bilateral: normal appearance, PERRL, EOMI. Ears, Nose, Throat: normal pharynx, normal ENT inspection, hearing grossly normal Neck: normal inspection, supple, full range of motion Respiratory: wheezing, distant breath sounds Cardiovascular: regular rate/rhythm Gastrointestinal: normal bowel sounds, soft, non-tender, no organomegaly Extremities: normal inspection, normal capillary refill, normal range of motion, no edema Neurologic/Psych: no motor/sensory deficits, awake, alert, oriented x 3 Skin: intact, normal color, warm/dry Core Measures ACS in differential dx? No Severe Sepsis Present: No Septic Shock Present: No Progress Differential Diagnosis: asthma, bronchitis Plan of Care: Orders Procedure Date/time Status Nothing by Mouth 03/19 B Active Patient Data 03/18 2351 Active Saline Lock 03/18 2334 Active Misc Message 03/18 2334 Active ED Holding Orders 03/18 2334 Active Admit to inpatient 03/18 2334 Active Vital Signs 03/18 2334 Active Code Status 03/18 2334 Active TROPONIN LEVEL 03/18 2300 Complete COMPREHENSIVE METABOLIC PANEL 03/18 2300 Complete CBC WITHOUT DIFFERENTIAL 03/18 2300 Complete EKG 03/18 2300 Active Intake & Output 03/18 2017 Active Current Medications Sig/Luca Start time Last Medication Dose Stop Time Status Admin Rivaroxaban 20 MG DAILY 03/20 1000 UNVr (Xarelto) Oxybutynin Chloride 10 MG QPM 03/19 2200 UNVr (Ditropan) Furosemide 20 MG TID 03/19 1000 UNVr (Lasix) Laboratory Tests 03/18/17 2328: Anion Gap 5, Estimated GFR > 60, BUN/Creatinine Ratio 22.0, Glucose 113 H, Calcium 8.6, Total Bilirubin 0.5, AST 17, ALT 25, Alkaline Phosphatase 70, Troponin I < 0.01, Total Protein 5.9 L, Albumin 3.2 L, Globulin 2.7, Albumin/ Globulin Ratio 1.2, CBC w Diff MAN DIFF ORDERED, RBC 4.96, MCV 83.6, MCH 26.1 L , RDW 18.1 H, MPV 7.8, Gran % 88.4 H, Lymphocytes % 6.8 L, Monocytes % 2.9, Eosinophils % 1.9, Basophils % 0 L, Absolute Granulocytes 7.5 H, Segmented Neutrophils 89 H, Band Neutrophils 2, Absolute Lymphocytes 0.6 L, Lymphocytes 5 L, Monocytes 3, Absolute Monocytes 0.2, Eosinophils 1, Absolute Eosinophils 0.2, Absolute Basophils 0, Platelet Estimate ADEQUATE, Polychromasia 1+, Hypochromic-Microcytic 1+, Poikilocytosis 1+, Ovalocytes 1+, Stomatocytes FEW, PUBS MCHC 31.2 L, Fld Total RBCs Counted 100 last 6 cxr's have been negative, last several dimers/troponin also negative... will give steroids/nebs. (RENÉ KILLIAN,SARI Rno) Diagnostic Imaging: Viewed by Me: Radiology Read. Discussed w/RAD: Radiology Read. CXR Impression: no acute abnormality, no infiltrates, low lung volumes Initial ED EKG: normal axis, normal intervals, normal p-waves, normal QRS complex, normal sinus rhythm Comments: PATIENT: JERRELL RUDD PRESENT AGE: 47 PATIENT ACCOUNT NO: [id number] : 68 LOCATION: [facility] ORDERING PHYSICIAN: SARI MERRITT MD SERVICE DATE: 03/18/17-2299 EXAM TYPE: RAD - XRY-PORTABLE CHEST XRAY EXAMINATION: XR PORTABLE CHEST CLINICAL INFORMATION: Dyspnea. COMPARISON: 01/03/2017 TECHNIQUE: Portable frontal view of the chest was obtained. FINDINGS: Lung volumes are low. Prominent soft tissue of the chest limits the evaluation. Bronchovascular crowding present. No definite consolidation. No significant pleural effusion. No pneumothorax. The cardiomediastinal silhouette is unchanged. IMPRESSION: Limited study due to prominent soft tissues and motion. Low lung volumes. No definite acute pulmonary findings. DICTATED BY: NATALEE HOGAN MD DATE/TIME DICTATED:03/18/172321 HEMATOLOGY SPECIALIST:TERRI DATE/TIME TRANSCRIBED:03/18/172321 CONFIDENTIAL, DO NOT COPY WITHOUT APPROPRIATE AUTHORIZATION. <Electronically signed in Other Vendor System> SIGNED BY: NATALEE HOGAN MD 03/18 Departure Departure Disposition: HOME OR SELF CARE Condition: Stable Clinical Impression Primary Impression: Asthma attack Referrals: MYA KILLIAN,MARTELL Blake (PCP/Family) Departure Forms: Customer Survey General Discharge Information Admission Note Spoke With: SCOTT POMPA MD Documentation of Exam: Documentation of any treatments & extenuating circumstances including Concerns Regarding Discharge (functional status, medication knowledge or non-compliance, living conditions, etc.) that warrant an admission rather than observation: pt received decadron 8mg in ED, with nebs. She felt better, but dropped her 02 sat to 82-3%. Pt is high risk given her SCOTT and brittle asthma, merits supplemental 02. Critical Care Note Critical Care Note Critical Care Time: 30-74 min
--- NOTE | 2017-03-18 20:25 | NUR ---
SOB AFTER EXERTION. AMBULATORY TO ROOM 3 AND ABLE TO GET SELF ONTO STRETCHER, O2 SAT 86% RA AND PLACED ON 3LNC SUPPLIMENTAL O2. DR MERRITT TO BEDSIDE
--- NOTE | 2017-03-18 20:27 | NUR ---
PT TO ROOM 3 MD MERRITT AT BEDSIDE TO JOSE LUIS PT
--- NOTE | 2017-03-18 20:41 | NUR ---
PT MEDICATED ORDERED
--- NOTE | 2017-03-18 23:07 | NUR ---
PT STS FEELING BETTER AND WILL LIKE TO GO HOME
--- NOTE | 2017-03-18 23:27 | RADIOLOGY REPORT ---
EXAMINATION: XR PORTABLE CHEST CLINICAL INFORMATION: Dyspnea. COMPARISON: 01/03/2017 TECHNIQUE: Portable frontal view of the chest was obtained. FINDINGS: Lung volumes are low. Prominent soft tissue of the chest limits the evaluation. Bronchovascular crowding present. No definite consolidation. No significant pleural effusion. No pneumothorax. The cardiomediastinal silhouette is unchanged. IMPRESSION: Limited study due to prominent soft tissues and motion. Low lung volumes. No definite acute pulmonary findings.
--- NOTE | 2017-03-18 23:35 | NUR ---
JERRELL RUDD Nurse Note by: SHERIF LAN I agree with the HAMMER SETTER findings/evaluation of this patient's condition. Entered by: SHERIF LAN Date: 03/18/17 Time: 4379
--- NOTE | 2017-03-18 23:50 | History & Physical ---
MARILEE KILLIAN,[facility] 03/18/17 9894: General Information and HPI MD Statement: I have seen and personally examined JERRELL TANNER and documented this H&P. The patient is a 47 year old F who presented with a patient stated chief complaint of [shortness of breath]. 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 She states that on Sunday she was celebrating her birthday and did not eat anything all day. She then had some beans and pickles which cause her to have some abdominal pain and nausea. She states her respiratory symptoms began around 2 AM on Sunday. She says she woke up at that time and noticed her O2 sats was in the 60s. She then had some water and took a breathing treatment before falling back alssep. She eventually wokeup with a headache and states her O2 sat slightly improved. Around 4AM she thought her respiratory symptoms were due to her allergies since she was having eye irritation and was recently clearning the house. She continued to have these symptoms throughout sunday and then drove herself to the ED. she also complains of fatigue secondary to lack of sleep and self report edema of her lower extremities. She denies any fever chills or night sweats, chest pain, cough or dysuria. Allergies/Medications Allergies: Coded Allergies: cat dander (Severe, DYSPNEA 07/17/16) dog dander (DYSPNEA 07/17/16) grass pollen (DIFFICULTY BREATHING 07/17/16) mold (DYSPNEA 07/17/16) ragweed pollen (DYSPNEA 07/17/16) tree and shrub pollen (DIFFICULTY BREATHING 07/17/16) amoxicillin (From Augmentin) (ITCHY 07/17/16) ampicillin (LOW GRADE FEVER 07/17/16) cephalexin (From KEFLEX) (VOMITING 07/17/16) clavulanic acid (From Augmentin) (ITCHY 07/17/16) isoetharine (HEART RATE ELEVATION 07/17/16) Home Med list Albuterol Sulfate 2.5 MG/3 ML (0.083 %) VIAL.NEB 1 Vial INH/BRANDON Q4P PRN SOB ( Reported) Albuterol Sulfate (Proventil Hfa) 90 MCG HFA.AER.AD 2 PUF INH Q4 PRN SOB ( Reported) Fluticasone/Salmeterol (Advair 500-50 Diskus) 500 MCG-50 MCG/DOSE BLST.W.DEV 1 PUF INH BID ASTHMA (Reported) Furosemide 20 MG TABLET 1 TAB PO TID FLUID RETENTION (Reported) Loratadine (Claritin) 10 MG TABLET 1 TAB PO DAILY ALLERGIES (Reported) Montelukast Sodium (Singulair) 10 MG TABLET 1 TAB PO DAILY ASTHMA Prednisone (Deltasone) 20 MG TABLET 3 TAB PO DAILY ASTHMA Prednisone 10 MG TABLET 0 PO AD ASTHMA On Take 11/30-12/01 3 tabs per day 12/02-12/03 2 tabs per day 12/04-12/05 1 tab per day Then Stop Prednisone 20 MG TABLET 1 TAB PO AD PRN STEROID Do not take medication while on prednisone taper during 11/30-12/05. Prednisone 10 MG TABLET 1 TAB PO BID ASTHMA Take 4 tablets on 01/06/17 Take 3 tablets on 01/07/17 Take 2 tablets on 01/08/17 Take 1 tablet on 01/09/17 Rivaroxaban (Xarelto) 20 MG TABLET 1 TAB PO DAILY BLOOD THINNER (Reported) with food Solifenacin Succinate (Vesicare) 10 MG TABLET 1 TAB PO DAILY BLADDER ( Reported) Tiotropium [place] (Spiriva) 18 MCG CAP.W.DEV 1 CAP INH DAILY ASTHMA Past History Travel History Traveled to [place] past 21 day No Medical History Neurological: NONE EENT: NONE Respiratory: asthma, pulmonary embolism, SCOTT on cpap but noncompliant Gastrointestinal: GERD, umbilical hernia, CELIAC DISEASE Hepatic: NONE Renal: nephrolithiasis Musculoskeletal: tibia fracture Psychiatric: NONE Endocrine: diabetes ( - diet controlled), hypothyroidism, obesity (- morbid) Blood Disorders: DVT (multiple dvt), IVC FILTER LLE Cancer(s): NONE RN CORONARY CARE UNIT/Reproductive: bladder prolapse Other Medical Hx: cellulitis History of MRSA: No History of VRE: No History of CDIFF: No Surgical History Surgical History: open reduction and internal fixation of right tibia fracture, cholycystectomy, of son, tonsil and adenoidectomy, umbilical hernia surgery Past Family/Social History Family History Relations & Conditions if any MOTHER FH: asthma FATHER FH: COPD (chronic obstructive pulmonary disease) FH: lung cancer FH: prostate cancer BROTHER Relation not specified for: FH: celiac disease FH: coronary artery disease FH: kidney disease Psychosocial History Where do you live? Home Who Do You Live With? spouse, child (son) Services at Home: Oxygen Primary Language: Irish Smoking Status: Former Smoker (quit 30 years ago) ETOH Use: occasional use Illicit Drug Use: denies illicit drug use, cocaine Functional Ability ADLs Independent: dressing, eating, toileting, bathing. Ambulation: independent IADLs Independent: shopping, housework, finances, food prep, telephone, transportation , medication admin. Review of Systems Review of Systems Constitutional: Reports: malaise (fatigue due to lack of sleep). Denies: chills, diaphoresis, fever. Cardiovascular: Reports: edema. Denies: chest pain. Respiratory: Reports: short of breath. Denies: cough. GI: Reports: bloating (discomfort due to gas), nausea. Denies: vomiting. Genitourinary: Denies: dysuria, frequency. Exam & Diagnostic Data Last 24 Hrs of Vital Signs/I&O Vital Signs Date Time Temp Pulse Resp B/P B/P Pulse O2 O2 Flow FiO2 Mean Ox Delivery Rate 03/19 0247 95 94 03/19 0135 98.8 97 20 122/84 91 03/19 0130 91 Nasal 4.0L Cannula 03/19 0054 99.3 94 20 123/71 93 Nasal 3.0L Cannula 03/19 0038 87 03/18 2258 100.4 102 20 130/76 90 Room Air 03/18 2052 92 Nasal Cannula 03/18 2044 94 Nasal 2.0L Cannula 03/18 2015 97.7 112 24 122/79 91 Room Air Intake & Output 03/19 0800 03/19 0000 03/18 1600 Intake Total Output Total Balance Patient 310 lb 310 lb Weight Weight Reported by Patient Estimated Measurement Method Physical Exam General Appearance Alert, Oriented X3, Cooperative, No Acute Distress (On 2L oxygen) HEENT Atraumatic, PERRLA, EOMI Neck Supple, trachea midline, no lymphadenopathy Cardiovascular Regular Rate, Normal S1, Normal S2, No Murmurs, cap refill <2 seconds Lungs Clear to Auscultation, reduced air movement Abdomen Soft, No Tenderness, unable to examine for heptosplenomegaly due to body habitus Neurological Normal Speech, Cranial Nerves 3-12 NL Extremities No Edema, Normal Pulses, No Tenderness/Swelling Last 24 Hrs of Labs/Neftali: Laboratory Tests 03/18/17 2328: Anion Gap 5, Estimated GFR > 60, BUN/Creatinine Ratio 22.0, Glucose 113 H, Calcium 8.6, Total Bilirubin 0.5, AST 17, ALT 25, Alkaline Phosphatase 70, Troponin I < 0.01, Total Protein 5.9 L, Albumin 3.2 L, Globulin 2.7, Albumin/ Globulin Ratio 1.2, CBC w Diff MAN DIFF ORDERED, RBC 4.96, MCV 83.6, MCH 26.1 L , RDW 18.1 H, MPV 7.8, Gran % 88.4 H, Lymphocytes % 6.8 L, Monocytes % 2.9, Eosinophils % 1.9, Basophils % 0 L, Absolute Granulocytes 7.5 H, Segmented Neutrophils 89 H, Band Neutrophils 2, Absolute Lymphocytes 0.6 L, Lymphocytes 5 L, Monocytes 3, Absolute Monocytes 0.2, Eosinophils 1, Absolute Eosinophils 0.2, Absolute Basophils 0, Platelet Estimate ADEQUATE, Polychromasia 1+, Hypochromic-Microcytic 1+, Poikilocytosis 1+, Ovalocytes 1+, Stomatocytes FEW, PUBS MCHC 31.2 L, Fld Total RBCs Counted 100 Diagnostic Data CXR Results FINDINGS: Lung volumes are low. Prominent soft tissue of the chest limits the evaluation. Bronchovascular crowding present. No definite consolidation. No significant pleural effusion. No pneumothorax. The cardiomediastinal silhouette is unchanged. IMPRESSION: Limited study due to prominent soft tissues and motion. Low lung volumes. No definite acute pulmonary findings. 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 As Ranked By This Provider Problem List: 1. 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 Other things on our differential incloude COPD and CHF. However her chest x-ray did not show any increased lung volumes. She has not been formally diagnosed with COPD. On exam she did not have any swelling which would put CHF lower on our differential. Although she did go out on her birthday on Sunday may have had some salty food. Alcohol is also a diuresis and is not associated with causing chf exascerbation. We will start her on IV solumedrol 40 and continue her home claritin. We will need TRC. Patient herself reports edema of her lower extremities. We did not find any edema on physical exam, we will continue her home Lasix. We will place her on a heart healthy diet and limit her sodium to 2 g per day. We will also continue her home medications for asthma including venotolin, proventil, and symbalta. Patient states that she will only allow us to perform an ABG if she is very lethargic. A pulmonology consult with be placed to evaluate the patient. -follow TRC recommendations -continue claritin 10 mg po BID -IV methylprednisolonel 40mg q12 -Continue furosemide 20 mg by mouth 3 times a day -continue ventolin 2 puffs every 4 hours prn SOB, continue proventil 3 mL inhalation every 4 hours prn SOB, -continue symbalta 2 puff BID -heart healthy diet, limit sodium to <2g/day -obtain ABG if the patient is lethargic or hypoxic -f/u pulm consult 2. Diabetes Assessment/Plan Patient reports a history of type 2 diabetes. She is not taking any oral hypoglycemics. We will continue to monitor her blood sugars evaluate the need for. Her blood glucose was 113. -Monitor blood sugars and evaluate need for sliding scale if sugars > 200 3. History of pulmonary embolus (PE) Assessment/Plan The patient has a history of a right DVT, multiple DVTs, and pulmonary emboli. We will continue her on her home dose of rivaroxaban -continue rivaroxaban 20 mg po daily 4. Bladder prolapse Assessment/Plan Patient states she has a history of prolapse and was previously taking Solifenacin for overactive bladder. We will starther on oxybutnin instead. -Start oxybutynin 10 mg po 5. DVT prophylaxis Assessment/Plan Continue Xarelto 6. Full code status Assessment/Plan FULL CODE Core Measures/Miscellaneous Acute Coronary Syndrome ACS Diagnosis: No Cerebrovascular Accident CVA/TIA Diagnosis: No Congestive Heart Failure CHF Diagnosis: No VTE (View Protocol) VTE Risk Factors: Acute medical illness, Age > 40, Obesity, [facility] prophylaxis d/t: No contraindications No VTE Pharm Prophylaxis d/t: No contraindications VTE Diagnosis: No VTE Type: NONE VTE Confirmed by (Test): NONE Sepsis (View Protocol) Severe Sepsis Present: No Septic Shock Septic Shock Present: No Miscellaneous Documentation Attending Case Discussed With: RADHA AVINA MD Primary Care Physician: MARTELL ROQUE MD Patient sees these Specialists NA Level of Patient Care: General Medicine THA KILLIAN,[facility] 03/19/17 0037: Core Measures/Miscellaneous Acute Coronary Syndrome ACS Diagnosis: No Cerebrovascular Accident CVA/TIA Diagnosis: No Congestive Heart Failure CHF Diagnosis: No VTE (View Protocol) VTE Diagnosis: No VTE Type: NONE VTE Confirmed by (Test): NONE Miscellaneous Documentation Attending Case Discussed With: RADHA AVINA MD Primary Care Physician: MARTELL ROQUE MD Patient sees these Specialists NA Level of Patient Care: General Medicine Resident Review Statement Resident Statement: examined this patient, discussed with internet architect, agreed with internet architect Other Findings: Ms Tanner is a 47 yo female with PMH of asthma, SCOTT on CPAP (noncompliant), GERD, celiac, DM diet controlled, chronic LE edema, obesity, recurrent cellulitis, DVT and PE on Xarelto, who comes in with CC of SOB. Pt states that she started feeling SOB on 03/17/2017.She was recently discharged from [facility] on 01/05/2017 when she was sent home on a prednisone taper after which she was admitted for acute hypoxic respiratory failure and asthma exacerbation and seasonal allergies. Patient reports that she's been feeling relatively well however over the last 72 hours prior to admission she states that her oxygen requirements and saturations have been off her baseline. On Sunday03/17/2017 she was short of breath and desaturating down to 85% with ambulation. She states that she also went down to the 60s. She normally schedule some medication at specific times and found that she did take an increased medication of Claritin owing to seasonal allergies. On Sunday she had a birthday libertarian celebration where she reports that she develops some nausea after eating beans and pickles. She also states that she had 4 alcoholic beverages during this celebration. Her medication compliance is average. She is non compliant with CPAP. R On review of systems she denies any fever, chills she endorses nausea and had no episodes of vomiting. She also states that she's had an increased abdominal discomfort owing to increased flatulence. E HEENT: extraocular motion intact, no nystagmus. Nose is atraumatic. External auditory canal and Tympanic membranes clear. Pharynx normal. No swelling or edema. Saturating well with a NC in place. Neck: Supple, no lymphadenopathy, normal range of motion without pain or tenderness Skin:WNL. Cardiovascular: Regular rate and rhythm no murmurs rubs or gallops. Respiratory: Chest nontender. No respiratory distress. Reduced Air entry. Mild Bibasilar Crackles. Abdomen: Soft, nontender nondistended, no appreciable organomegaly. Normal bowel sounds. No ascites, no rebound or guarding. Extremity: Generalized edema, no calf tenderness to palpation, normal and equal pulses. No crepitus or fluctuation. Neuro: AO x 3. CN 2 - 12 intact. L: Sodium 139, potassium 4.3, chloride 97, CO2 38, BUN/creatinine creatinine 11 and 0.5. White blood cell count 8.5, H&H 13.0 and 41.5 respectively. Platelets 181. IMPRESSION: Limited study due to prominent soft tissues and motion. Low lung volumes. No definite acute pulmonary findings. A/P This is a 47-year-old female with extensive past medical history was presented to the emergency department with acute worsening of shortness of breath. The etiology of this is likely multifactorial including decreased medical compliance , increased salt intake and what looks like a combination of CHF exacerbation in the setting of COPD. In the emergency department she received albuterol, ipratropium, dexamethasone. We'll admit the patient to general medical service. Hypoxia caused by acute asthma exacerbation. Chest x-ray did not show any evidence of increased lung volumes. She does have generalized lower extremity edema which is nonpitting. Patient has not taken her Lasix on the day of admission. TRC Nebs PRN. Claritin twice a day IV Solu-Medrol 40 mg every 12, can likely switich to PO prednisone once more stable. Continue Lasix, 20 mg TID, monitor Bicarb. History of obstructive sleep apnea. Continue with CPAP. History of DVT Continue Xarelto History diabetes Monitor blood sugars and evaluate need for sliding scale. Consider pharmacologic intervention if sugars remain >200. Diet Heart healthy, limit sodium to 2 g per day. DVT prophylaxis Continue Xarelto Code: Full Code SCOTT POMPA 03/19/17 0504: Attending MD Review Statement Attending Statement Attending MD Statement: examined this patient, discuss w/resident/PA/GOLF RANGE ATTENDANT, agreed w/resident/PA/GOLF RANGE ATTENDANT, reviewed EMR data (avail), reviewed images, amended to note Attending Assessment/Plan: CC: Worsening of shortness of breath PMH: Morbid obesity, history of DVT/PE risk the IVC, on Xarelto, who is a, chronic hypercapnic respiratory failure, OHS, asthma Patient came to ER for worsening shortness of breath. Patient states that he could not catch my breath and the numbers were not looking right. Patient had oxygen saturation to 60% to 80% at home. Patient states that she did a lot of cleaning at home which may have precipitated an asthma episode, she is allergy to dust. She denies any cough or sputum production, pleuritic chest pain, palpitations, chest tightness, dizziness, loss of consciousness. She gets on and off leg swelling. She tried home nebulization treatment without much relief so she came to ER. Vitals: MAXIMUM TEMPERATURE 100.4, H&H 112 on arrival did improve to 97, RR 20s, blood pressure 122/79, saturating 91% on 4 L nasal cannula On exam: Morbidly obese, A O 3, sleepy but easily arousable, cooperative, moderate respiratory distress, neck supple, JVD difficult to assess, no lymphadenopathy, mucosa moist, no focal neurological deficit, no dependent edema , extensive fungal rash inframamillary fold, inguinal folds, sunburn on chest. CVS: S1-S2, RRR. RS: Markedly decreased air entry bilaterally, scattered wheezing, prolonged expiration. Abdomen: Soft, NT, ND, bowel sounds present. Labs: CBC unremarkable, sodium 139, potassium 4.3, chloride 97, bicarbonate 38, BUN 11, creatinine 0.5, glucose 113, calcium 8.6, LFT unremarkable, troponin less than 0.01, CXR: Limited study due to prominent soft tissues and motion. Low lung volumes. No definite acute pulmonary findings. A and P 43 year old female with extensive past medical history and morbid obesity presented in ER for desaturation at home. Patient states that he she had been getting worsening of shortness of breath, home oxygen was low to 60s so she came to ER. Other than difficulty breathing she denies any pleuritic chest pain, productive cough, palpitation, chest pain. She gets on and off leg swelling which has improved with PO Lasix. She appears in [id number] respiratory distress with accessory muscles of respiration in use, requiring increased oxygen by nasal cannula, she is sleepy but arousable, bicarbonate appears to be at baseline. Markedly diminished breath sounds bilaterally with scattered wheezing and prolonged expiration. His acute respiratory failure appears to be secondary to multiple reasons including asthma exacerbation with obstructive sleep apnea, obesity hypoventilation syndrome. + Acute hypoxic respiratory failure secondary to asthma exacerbation, obstructive sleep apnea, obesity hypoventilation + History of Morbid obesity, history of DVT/PE risk the IVC, on Xarelto, who is a, chronic hypercapnic respiratory failure, OHS, asthma - Admit to general medicine - Obtain an ABG if patient is more lethargic or hypoxic - Continue nighttime CPAP - Try to wean off oxygen to baseline - Continue IV methylprednisolone 40 mg every 12 hours, taper gradually - Albuterol nebulization scheduled and when necessary, incentive spirometry - Pulmonology consult - Continue all her home medications, including PO lasix - Sliding scale insulin, patient being on steroids might increase blood sugar; she has history of diet-controlled DM. - Continue Xarelto for DVT prophylaxis
[2017-03-19 00:07] LABS: ABSOLUTE BASOPHIL COUNT 0 /CUMM (0.0-0.2); ABSOLUTE EOSINOPHIL COUNT 0.2 /CUMM (0.0-0.7); ABSOLUTE GRANULOCYTE CT 7.5 /CUMM (1.4-6.5); ABSOLUTE LYMPH COUNT 0.6 /CUMM (1.2-3.4); ABSOLUTE MONOCYTE COUNT 0.2 /CUMM (0.10-0.60); BASOPHIL % 0 % (0.0-2.0); EOSINOPHIL % 1.9 % (0-5); GRANULOCYTE % 88.4 % (42.2-75.2); HEMATOCRIT 41.5 % (37-47); MEAN CORPUSCULAR HGB 26.1 PG (27.0-31.0); MEAN CORPUSCULAR HGB CONC 31.2 G/DL (33.0-37.0); MEAN CORPUSCULAR VOLUME 83.6 FL (81.0-99.0); MEAN PLATELET VOLUME 7.8 FL (7.4-10.4); PLATELET COUNT 181 /CUMM (130-400); RBC DISTRIBUTION WIDTH 18.1 % (11.5-14.5); RED BLOOD CELL CT 4.96 /CUMM (4.20-5.40); WHITE BLOOD CELL COUNT 8.5 /CUMM (4.8-10.8)
--- NOTE | 2017-03-19 00:10 | NUR ---
RT PAGED FOR C-PAP FOR PATIENT
--- NOTE | 2017-03-19 00:17 | NUR ---
[facility]
--- NOTE | 2017-03-19 00:32 | NUR ---
RT ED AT BEDSIDE FOR C-PAP
--- NOTE | 2017-03-19 00:46 | NUR ---
BED ASSIGNMENT 214-1 AT 0022
--- NOTE | 2017-03-19 00:50 | NUR ---
PT IS GOING TO 231-1
--- NOTE | 2017-03-19 00:51 | NUR ---
REPORT GIVEN TO RHONDA BOBBY
--- NOTE | 2017-03-19 01:15 | NUR ---
LATE ENTRY NURSING NOTE: PATIENT ARRIVED TO ROOM AT THIS TIME VIA STRETCHER FROM ED AND SETTLED INTO BED. A&OX3, ALL VSS, STABLE ON 4L NC PER RT ORDERS, AWAITING RT ED TO SET UP CPAP AT THIS TIME. NO C/O PAIN, PATIENT ORIENTED TO FLOOR/ROOM, STAFF, CALL LIGHT. ALL NEEDS IN REACH, SAFETY MAINTAINED. WILL CONTINUE TO MONITOR.
[2017-03-19 01:35] VITALS: BP 122/84
--- NOTE | 2017-03-19 05:05 | Admission Certification ---
Admission Certification Certification Statement - As attending physician, I certify that at the time of - admission, based on clinical presentation, severity of - symptoms, need for further diagnostic testing and - therapeutic interventions, and risk of adverse outcomes - without in-hospital treatment, in my clinical assessment, - this patient requires an acute hospital stay for a minimum - of two nights or longer. I have also considered psychsocial - factors such as support system, advanced age, financial - issues, cognitive issues, and failed out-patient treatments, - past re-admission history, safety of patient, and lack of - compliance as applicable. Specific rationale supporting this admission is: Acute on chronic respiratory failure, secondary to asthma exacerbation along with obstructive sleep apnea and obesity hypoventilation syndrome
[2017-03-19 06:58] VITALS: BP 100/72
--- NOTE | 2017-03-19 08:09 | PN- Housestaff ---
FRANCIS KILLIAN,[facility] 03/19/17 0809: Subjective Follow-up For: Asthma Exacerbation SCOTT Subjective: I have personally seen the patient this morning. The patient was asleep and would not wake up on repeated attempts. The nurse mentioned this is very common for her but she is alert and oriented once she wakes up. Review of Systems Constitutional: Denies: see HPI. EENTM: Denies: see HPI. Cardiovascular: Denies: see HPI. Respiratory: Denies: see HPI. Gastrointestinal: Denies: see HPI. Genitourinary: Denies: see HPI. Musculoskeletal: Denies: see HPI. Skin: Denies: see HPI. Objective Last 24 Hrs of Vital Signs/I&O Vital Signs Date Time Temp Pulse Resp B/P B/P Pulse O2 O2 Flow FiO2 Mean Ox Delivery Rate 03/19 1447 97.9 70 20 110/60 93 Nasal 4.0L Cannula 03/19 1154 Nasal 4.0L Cannula 03/19 0800 95 Nasal 4.0L Cannula 03/19 0658 97.4 72 24 100/72 92 03/19 0247 95 94 03/19 0135 98.8 97 20 122/84 91 03/19 0130 91 Nasal 4.0L Cannula 03/19 0054 99.3 94 20 123/71 93 Nasal 3.0L Cannula 03/19 0038 87 03/18 2258 100.4 102 20 130/76 90 Room Air 03/18 2052 92 Nasal Cannula 03/18 2044 94 Nasal 2.0L Cannula 03/18 2015 97.7 112 24 122/79 91 Room Air Intake & Output 03/19 1600 03/19 0800 03/19 0000 Intake Total 700 760 Output Total Balance 700 760 Intake, IV 40 Intake, Oral 700 720 Number 0 Bowel Movements Patient 310 lb 310 lb Weight Weight Reported by Patient Estimated Measurement Method Physical Exam General Appearance: Alert, Oriented X3, No Acute Distress Other Physical Findings: EENT Atraumatic, PERRLA, EOMI Neck Supple, trachea midline, no lymphadenopathy Cardiovascular Regular Rate, Normal S1, Normal S2, No Murmurs, cap refill <2 seconds Lungs Clear to Auscultation, reduced air movement Abdomen Soft, No Tenderness, unable to examine for heptosplenomegaly due to body habitus Neurological Normal Speech, Cranial Nerves 3-12 NL Extremities No Edema, Normal Pulses, No Tenderness/Swelling Current Medications: Current Medications Sig/Luca Start time Last Medication Dose Route Stop Time Status Admin Acetaminophen 500 MG ONCE ONE 03/19 1245 DC PO 03/19 1246 Albuterol Sulfate 3 ML BID 03/19 2200 AC 03/19 INH 1130 Albuterol Sulfate 2 PUF Q4 PRN 03/19 0045 AC INH Albuterol Sulfate 3 ML Q4P PRN 03/19 0045 DC INH Albuterol Sulfate 3 ML ONCE ONE 03/18 2045 DC 03/18 INH 03/18 Budesonide/ 2 PUF BID 03/19 0036 AC 03/19 Formoterol Fumarate INH 1153 Dexamethasone 8 MG ONCE ONE 03/18 2045 DC 03/18 PO 03/18 Dexamethasone 0 .STK-MED ONE 03/18 2044 DC PO Furosemide 20 MG TID 03/19 1000 CAN PO Furosemide 40 MG 7:30 AM, & 4:30 PM 03/19 1000 AC 03/19 IV 1148 Insulin Aspart 0 TIDAC PRN 03/19 0530 AC 03/19 SC 1151 Ipratropium [place] 2.5 ML ONCE ONE 03/18 2045 DC 03/18 INH 03/18 Loratadine 10 MG DAILY 03/19 1000 AC 03/19 PO 1149 Methylprednisolone 40 MG Q12H 03/20 0400 AC 03/19 IV 0445 Methylprednisolone 40 MG Q12 03/19 0300 DC IV Nystatin 1 LB TID PRN 03/19 0315 AC 03/19 TOP 1149 Oxybutynin Chloride 10 MG QPM 03/19 2200 AC PO Patient Medication 1 ED .STK-MED ONE 03/19 1404 [place] Teaching ED 03/19 1405 Rivaroxaban 20 MG DAILY 03/20 1000 AC PO Last 24 Hrs of Lab/Neftali Results Last 24 Hrs of Labs/Mics: Laboratory Tests 03/18/17 2328: Anion Gap 5, Estimated GFR > 60, BUN/Creatinine Ratio 22.0, Glucose 113 H, Calcium 8.6, Phosphorus 3.8, Magnesium 2.0, Total Bilirubin 0.5, AST 17, ALT 25, Alkaline Phosphatase 70, Troponin I < 0.01, Total Protein 5.9 L, Albumin 3.2 L , Globulin 2.7, Albumin/Globulin Ratio 1.2, CBC w Diff MAN DIFF ORDERED, RBC 4.96, MCV 83.6, MCH 26.1 L, RDW 18.1 H, MPV 7.8, Gran % 88.4 H, Lymphocytes % 6.8 L, Monocytes % 2.9, Eosinophils % 1.9, Basophils % 0 L, Absolute Granulocytes 7.5 H, Segmented Neutrophils 89 H, Band Neutrophils 2, Absolute Lymphocytes 0.6 L, Lymphocytes 5 L, Monocytes 3, Absolute Monocytes 0.2, Eosinophils 1, Absolute Eosinophils 0.2, Absolute Basophils 0, Platelet Estimate ADEQUATE, Polychromasia 1+, Hypochromic-Microcytic 1+, Poikilocytosis 1+, Ovalocytes 1+, Stomatocytes FEW, PUBS MCHC 31.2 L, Fld Total RBCs Counted 100 Assessment/Plan Assessment: derek is a 47-year-old female with a past history of asthma, obstructive sleep apnea on CPAP, hypertension, diabetes, GERD, pulmonary embolism, and 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 Problem List: 1. SOB (shortness of breath) Most likely asthma exacerbation.Other things on our differential incloude COPD and CHF. However her chest x-ray did not show any increased lung volumes. She has not been formally diagnosed with COPD. On exam she did not have any swelling which would put CHF lower on our differential. Although she did go out on her birthday on Sunday may have had some salty food. Alcohol is also a diuresis and is not associated with causing chf exascerbation. . -follow TRC recommendations -continue claritin 10 mg po BID -IV methylprednisolonel 40mg q12. Will change to 40mg daily tomorrow. -Continue furosemide 20 mg by mouth 3 times a day -continue ventolin 2 puffs every 4 hours prn SOB, continue proventil 3 mL inhalation every 4 hours prn SOB, -continue symbalta 2 puff BID -heart healthy diet, limit sodium to <2g/day 2. Diabetes Patient reports a history of type 2 diabetes. She is not taking any oral hypoglycemics. We will continue to monitor her blood sugars evaluate the need for. Her blood glucose was 113. -Monitor blood sugars and evaluate need for sliding scale if sugars > 200 3. History of pulmonary embolus (PE) Assessment/Plan The patient has a history of a right DVT, multiple DVTs, and pulmonary emboli. We will continue her on her home dose of rivaroxaban -continue rivaroxaban 20 mg po daily 4. Bladder prolapse Assessment/Plan Patient states she has a history of prolapse and was previously taking Solifenacin for overactive bladder. We will starther on oxybutnin 10 mg po instead. 5. DVT prophylaxis Assessment/Plan Continue Xarelto 6. Full code status Problem List: 1. Asthma with exacerbation 2. Lower extremity edema 3. Diabetes mellitus 4. Pulmonary embolism 5. Bladder disorder Pain Ratin Pain Location: None Pain Goal: Remain pain free Pain Plan: None Tomorrow's Labs & Rationales: BEP(On Lasix) RADHA AVINA MD 03/19/17 1504: Attending MD Review Statement Attending Statement Attending MD Statement: examined this patient, discuss w/resident/PA/ASSET COORDINATOR, agreed w/resident/PA/ASSET COORDINATOR, reviewed EMR data (avail) Attending Assessment/Plan: 47F morbid obesity, obesity hypoventilation syndrome, SOCTT on CPAP, chronic lower extremity venous stasis with stasis dermatitis, HLD admitted with shortness of breath, hypoxia, hypercapnea. Patient was somnolent this morning but woke up after CPAP use. She reports being compliant with her Lasix and leg elevation. She becomes short of breath with exertion but this is chronic. She is looking forward to having bariatric surgery. She also has chronic wounds in her skin folds that she has been using corn starch to keep try. Hemodynamically stable, labs reviewed, patient refusing ABG. 1. Acute hypoxemic and hypercarbic respiratory failure 2. Chronic skin fold wounds 3. Metabolic encephalopathy secondary to hypercapnea 4. SCOTT 5. Obesity hypoventilation syndrome Plan - Continue on general medicine - Cotninue Solumedrol today, switch to Prednisone 40mg daily tomorrow with rapid taper - Continue Lasix 40mg IV BID - Monitor I/O, daily weights - Pulmonary consult - Continue home medications - Wound care consult - DVT Ppx
--- NOTE | 2017-03-19 13:38 | Cons- Pulmonary ---
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 She states that on Sunday she was celebrating her birthday and did not eat anything all day. She then had some beans and pickles which cause her to have some abdominal pain and nausea. She states her respiratory symptoms began around 2 AM on Sunday. She says she woke up at that time and noticed her O2 sats was in the 60s. She then had some water and took a breathing treatment before falling back alssep. She eventually wokeup with a headache and states her O2 sat slightly improved. Around 4AM she thought her respiratory symptoms were due to her allergies since she was having eye irritation and was recently clearning the house. She continued to have these symptoms throughout sunday and then drove herself to the ED. she also complains of fatigue secondary to lack of sleep and self report edema of her lower extremities. She denies any fever chills or night sweats, chest pain, cough or dysuria. Constitutional: Reports: malaise (fatigue due to lack of sleep). Denies: chills, diaphoresis, fever. Cardiovascular: Reports: edema. Denies: chest pain. Respiratory: Reports: short of breath. Denies: cough. GI: Reports: bloating (discomfort due to gas), nausea. Denies: vomiting. Genitourinary: Denies: dysuria, frequency. Allergies/Medications Allergies: Coded Allergies: cat dander (Severe, DYSPNEA 07/17/16) dog dander (DYSPNEA 07/17/16) grass pollen (DIFFICULTY BREATHING 07/17/16) mold (DYSPNEA 07/17/16) ragweed pollen (DYSPNEA 07/17/16) tree and shrub pollen (DIFFICULTY BREATHING 07/17/16) amoxicillin (From Augmentin) (ITCHY 07/17/16) ampicillin (LOW GRADE FEVER 07/17/16) cephalexin (From KEFLEX) (VOMITING 07/17/16) clavulanic acid (From Augmentin) (ITCHY 07/17/16) isoetharine (HEART RATE ELEVATION 07/17/16) Home Med List: Albuterol Sulfate 2.5 MG/3 ML (0.083 %) VIAL.NEB 1 Vial INH/BRANDON Q4P PRN SOB ( Reported) Albuterol Sulfate (Proventil Hfa) 90 MCG HFA.AER.AD 2 PUF INH Q4 PRN SOB ( Reported) Fluticasone/Salmeterol (Advair 500-50 Diskus) 500 MCG-50 MCG/DOSE BLST.W.DEV 1 PUF INH BID ASTHMA (Reported) Furosemide 20 MG TABLET 1 TAB PO TID FLUID RETENTION (Reported) Loratadine (Claritin) 10 MG TABLET 1 TAB PO DAILY ALLERGIES (Reported) Montelukast Sodium (Singulair) 10 MG TABLET 1 TAB PO DAILY ASTHMA Prednisone (Deltasone) 20 MG TABLET 3 TAB PO DAILY ASTHMA Prednisone 10 MG TABLET 0 PO AD ASTHMA On Take 11/30-12/01 3 tabs per day 12/02-12/03 2 tabs per day 12/04-12/05 1 tab per day Then Stop Prednisone 20 MG TABLET 1 TAB PO AD PRN STEROID Do not take medication while on prednisone taper during 11/30-12/05. Prednisone 10 MG TABLET 1 TAB PO BID ASTHMA Take 4 tablets on 01/06/17 Take 3 tablets on 01/07/17 Take 2 tablets on 01/08/17 Take 1 tablet on 01/09/17 Rivaroxaban (Xarelto) 20 MG TABLET 1 TAB PO DAILY BLOOD THINNER (Reported) with food Solifenacin Succinate (Vesicare) 10 MG TABLET 1 TAB PO DAILY BLADDER ( Reported) Tiotropium [place] (Spiriva) 18 MCG CAP.W.DEV 1 CAP INH DAILY ASTHMA Review of Systems Review of Systems Constitutional: Reports: see HPI. 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 Home Who Do You Live With? spouse, child (son) Services at Home: Oxygen Primary Language: Luxembourger Smoking Status: Former Smoker (quit 30 years ago) ETOH Use: occasional use Illicit Drug Use: denies illicit drug use, cocaine Functional Ability ADLs Independent: dressing, eating, toileting, bathing. Ambulation: independent IADLs Independent: shopping, housework, finances, food prep, telephone, transportation , medication admin. Exam & Diagnostic Data Last 24 Hrs of Vital Signs/I&O Vital Signs Date Time Temp Pulse Resp B/P B/P Pulse O2 O2 Flow FiO2 Mean Ox Delivery Rate 03/19 1154 Nasal 4.0L Cannula 03/19 0658 97.4 72 24 100/72 92 03/19 0247 95 94 03/19 0135 98.8 97 20 122/84 91 03/19 0130 91 Nasal 4.0L Cannula 03/19 0054 99.3 94 20 123/71 93 Nasal 3.0L Cannula 03/19 0038 87 03/18 2258 100.4 102 20 130/76 90 Room Air 03/18 2052 92 Nasal Cannula 03/18 2044 94 Nasal 2.0L Cannula 03/18 2015 97.7 112 24 122/79 91 Room Air Intake & Output 03/19 1600 03/19 0800 03/19 0000 Intake Total 760 Output Total Balance 760 Intake, IV 40 Intake, Oral 720 Number 0 Bowel Movements Patient 310 lb 310 lb Weight Weight Reported by Patient Estimated Measurement Method Last 48 Hrs of Labs/Neftali: Laboratory Tests 03/18/17 2328: Anion Gap 5, Estimated GFR > 60, BUN/Creatinine Ratio 22.0, Glucose 113 H, Calcium 8.6, Phosphorus 3.8, Magnesium 2.0, Total Bilirubin 0.5, AST 17, ALT 25, Alkaline Phosphatase 70, Troponin I < 0.01, Total Protein 5.9 L, Albumin 3.2 L , Globulin 2.7, Albumin/Globulin Ratio 1.2, CBC w Diff MAN DIFF ORDERED, RBC 4.96, MCV 83.6, MCH 26.1 L, RDW 18.1 H, MPV 7.8, Gran % 88.4 H, Lymphocytes % 6.8 L, Monocytes % 2.9, Eosinophils % 1.9, Basophils % 0 L, Absolute Granulocytes 7.5 H, Segmented Neutrophils 89 H, Band Neutrophils 2, Absolute Lymphocytes 0.6 L, Lymphocytes 5 L, Monocytes 3, Absolute Monocytes 0.2, Eosinophils 1, Absolute Eosinophils 0.2, Absolute Basophils 0, Platelet Estimate ADEQUATE, Polychromasia 1+, Hypochromic-Microcytic 1+, Poikilocytosis 1+, Ovalocytes 1+, Stomatocytes FEW, PUBS MCHC 31.2 L, Fld Total RBCs Counted 100 Assessment/Plan Impression/Plan: General Appearance Alert, Oriented X3, Cooperative, No Acute Distress (On 2L oxygen) HEENT Atraumatic, PERRLA, EOMI Neck Supple, trachea midline, no lymphadenopathy Cardiovascular Regular Rate, Normal S1, Normal S2, No Murmurs, cap refill <2 seconds Lungs Clear to Auscultation, reduced air movement Abdomen Soft, No Tenderness, unable to examine for heptosplenomegaly due to body habitus Neurological Normal Speech, Cranial Nerves 3-12 NL Extremities No Edema, Normal Pulses, No Tenderness/Swelling IMPRESSION This is a lady with very severe morbid obesity, chronic hypercarbic respiratory failure with severe obstructive sleep apnea with obesity hypoventilation syndrome, mild asthma, chronic venostasis with lower extremity chronic cellulitis, remote history of extensive pulmonary embolism involving the right pulmonary artery in 2009 since then multiple CTs have been negative for any venous thromboembolism patient is on xeralto for prevention of venous thromboembolism now has * Resolving hypoxia with chronic respiratory hypercarbic failure related to worsening obesity hypoventilation syndrome which is complicated by, mild asthma exacerbation with hypoventilation with noncompliance as outpatient with CPAP * Corpulmonale with fluid overload improving now on lasix, pt has rt heart dysfunction * Mild persistant asthma with exacerbation now better, no sig worsening * Previous history of significant pulmonary embolism now on appropriate anticoagulation for prevention * Severe morbid obesity with bedtime hypoxia, pt supposed to be on oxygen at hs with cpap but she is not compliant * No significant evidence suggestive of active pneumonitis or bacterial infection * Chronic pain syndrome * Lower extremity edema with chronic venous insufficiency with intertrigo on medications but appears better than her previous admission REC Po steroids and taper Rapidly, prednisone 40 and down to off in few days CPAP wih oxygen daily and pt is aware to use it Continue inhalers use Symbicort as she was on Advair at home 2 puffs twice a day Continue anticoagulation Increase activity COnt diuresis iv lasix Add spiriva qd If bicarb is more than 40 give diamox instead of lasix keep potassium more than 4 Pt counselled about cpap use Low carb diet Consult Acknowledgment - Thank you for your consult request.
[2017-03-19 14:47] VITALS: BP 110/60
--- NOTE | 2017-03-19 16:05 | NUR ---
WOUND CARE: REQUESTED BY DR AVINA TO EVLAUATE PT FOR SKIN ALTERATIONS PRESENT ON ADMISSION - PT KNOWN TO THIS SPECIAL EDUCATION PROFESSOR FROM [facility] APPOINTMENTS IN PAST - PT PRESENTS WTIH FUNGAL RASHES AND EXCORIATION TO GABRIELLA INNER GROIN L>R AND GABRIELLA BREAST FOLDS - SL FOUL ODOR - SIGNIFICANT REDNESS TO ANTERIOR CHECST ? CELLULITIS - PT STATED REDNESS SECONDARY TO SUN EXPOSURE OVER WEEKEND - DR AVINA MADE AWARE OF THIS WRITERS CONCERNS RECOMMEDNATION: APPLY NYSTATIN POWDER FB HEAVY DRNG PADS TO BREAST AND GROIN FOLDS TWICE DAILY AFTER CLEANSING AND DRYING
[2017-03-19 23:35] VITALS: BP 118/62
[2017-03-20 07:04] VITALS: BP 140/74
--- NOTE | 2017-03-20 07:46 | PN- Housestaff ---
FRANCIS KILLIAN,[facility] 03/20/17 0746: Subjective Follow-up For: Asthma Exacerbation SCOTT Review of Systems Constitutional: Denies: no symptoms, see HPI, chills, diaphoresis, fever, malaise, weakness, unexplained weight loss. EENTM: Denies: no symptoms. Cardiovascular: Denies: no symptoms. Gastrointestinal: Denies: no symptoms. Genitourinary: Denies: no symptoms. Musculoskeletal: Denies: no symptoms. Skin: Denies: no symptoms. Neurological/Psychological: Denies: no symptoms. Objective Last 24 Hrs of Vital Signs/I&O Vital Signs Date Time Temp Pulse Resp B/P B/P Pulse O2 O2 Flow FiO2 Mean Ox Delivery Rate 03/20 1437 98.1 87 20 134/66 94 Nasal 4.0L Cannula 03/20 0808 96 Nasal 4.0L Cannula 03/20 08 Nasal 4.0L Cannula 03/20 0704 98.3 74 20 140/74 96 Nasal Cannula 03/20 0011 81 92 03/20 0000 Nasal 4.0L Cannula 03/19 2335 98.3 91 20 118/62 93 03/19 2312 84 94 03/19 2125 92 Nasal 4.0L Cannula Intake & Output 03/20 1600 03/20 0800 03/20 0000 Intake Total 900 480 600 Output Total 600 Balance 900 -120 600 Intake, Oral 900 480 600 Output, Urine 600 Patient 289 lb Weight Weight Chair scale Measurement Method Physical Exam General Appearance: Alert, Oriented X3, Cooperative, No Acute Distress Other Physical Findings: EENT Atraumatic, PERRLA, EOMI Neck Supple, trachea midline, no lymphadenopathy Cardiovascular Regular Rate, Normal S1, Normal S2, No Murmurs, cap refill <2 seconds Lungs Clear to Auscultation, reduced air movement Abdomen Soft, No Tenderness, unable to examine for heptosplenomegaly due to body habitus Neurological Normal Speech, Cranial Nerves 3-12 NL Extremities No Edema, Normal Pulses, No Tenderness/Swelling Current Medications: Current Medications Sig/Luca Start time Last Medication Dose Route Stop Time Status Admin Acetazolamide 250 MG BID 03/20 2200 AC PO Albuterol Sulfate 3 ML BID 03/19 2200 AC 03/20 INH 0806 Albuterol Sulfate 2 PUF Q4 PRN 03/19 0045 AC INH Budesonide/ 2 PUF BID 03/19 0036 AC 03/20 Formoterol Fumarate INH 0832 Furosemide 40 MG 7:30 AM, & 4:30 PM 03/19 1000 DC 03/20 IV 0501 Insulin Aspart 0 TIDAC PRN 03/19 0530 AC 03/19 SC 1151 Loratadine 10 MG DAILY 03/19 1000 AC 03/20 PO 0831 Methylprednisolone 40 MG Q12H 03/20 0400 DC 03/20 IV 0501 Nystatin 1 LB TID PRN 03/19 0315 AC 03/19 TOP 1149 Oxybutynin Chloride 10 MG QPM 03/19 2200 AC 03/19 PO 2145 Prednisone 40 MG DAILY 03/21 1000 AC PO Prednisone 40 MG DAILY 03/20 1000 DC PO Rivaroxaban 20 MG DAILY 03/20 1000 AC 03/20 PO 0831 Tiotropium [place] 1 PUF DAILY 03/19 1833 AC 03/20 INH 0830 Last 24 Hrs of Lab/Neftali Results Last 24 Hrs of Labs/Mics: Laboratory Tests 03/20/17 0525: Anion Gap 6, Estimated GFR > 60, BUN/Creatinine Ratio 25.0 Assessment/Plan Assessment: derek is a 47-year-old female with a past history of asthma, obstructive sleep apnea on CPAP, hypertension, diabetes, GERD, pulmonary embolism, and 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 Problem List: 1. SOB (shortness of breath) Most likely asthma exacerbation.Other things on our differential incloude COPD and CHF. However her chest x-ray did not show any increased lung volumes. She has not been formally diagnosed with COPD. On exam she did not have any swelling which would put CHF lower on our differential. Although she did go out on her birthday on Sunday may have had some salty food. Alcohol is also a diuresis and is not associated with causing chf exascerbation. . -follow TRC recommendations -continue claritin 10 mg po BID -Discontinue IV methyprednisolone. Prednisone taper from tomorrow. (40 mg 03/21- 3, 30mg 14-15, 20mg 16-03/26, 10mg 18-03/28). -Discontinue furosemide and change to diamox 250mg BID (HCO3 > 40)as per pulmonology recommendations. -continue ventolin 2 puffs every 4 hours prn SOB, continue proventil 3 mL inhalation every 4 hours prn SOB, -continue symbalta 2 puff BID -Spiriva qd -heart healthy diet, limit sodium to <2g/day 2. Diabetes Patient reports a history of type 2 diabetes. She is not taking any oral hypoglycemics. We will continue to monitor her blood sugars evaluate the need for. Her blood glucose was 113. -Monitor blood sugars and evaluate need for sliding scale if sugars > 200 3. History of pulmonary embolus (PE) Assessment/Plan The patient has a history of a right DVT, multiple DVTs, and pulmonary emboli. We will continue her on her home dose of rivaroxaban -continue rivaroxaban 20 mg po daily 4. Bladder prolapse Assessment/Plan Patient states she has a history of prolapse and was previously taking Solifenacin for overactive bladder. We will starther on oxybutnin 10 mg po instead. 5. DVT prophylaxis Assessment/Plan Continue Xarelto 6. Full code status Problem List: 1. Asthma exacerbation 2. History of pulmonary embolus (PE) 3. Bladder prolapse 4. Diabetes 5. Lower extremity edema Pain Ratin Pain Location: None Pain Goal: Remain pain free Pain Plan: None Tomorrow's Labs & Rationales: CBC,BEP NICOLE KHAN 03/20/17 0759: Subjective Subjective: Interval history: There were no acute events overnight. This morning she states that she feels significantly better than yesterday. She does report some mild scratchy throat but endorses improvement in her breathing, denies any fevers, chills, chest pain , shortness of breath, nausea or abdominal pain. RADHA AVINA MD 03/20/17 1302: Attending MD Review Statement Attending Statement Attending MD Statement: examined this patient, discuss w/resident/PA/AADC PLANS STAFF OFFICER, agreed w/resident/PA/AADC PLANS STAFF OFFICER, reviewed EMR data (avail) Attending Assessment/Plan: 47F morbid obesity, obesity hypoventilation syndrome, SCOTT on CPAP, chronic lower extremity venous stasis with stasis dermatitis, HLD admitted with shortness of breath, hypoxia, hypercapnea. Patient was somnolent this morning but woke up after CPAP use. She reports being compliant with her Lasix and leg elevation. She becomes short of breath with exertion but this is chronic. She is looking forward to having bariatric surgery. She also has chronic wounds in her skin folds that she has been using corn starch to keep try. Hemodynamically stable, labs reviewed, patient refusing ABG. 1. Acute hypoxemic and hypercarbic respiratory failure 2. Chronic skin fold wounds 3. Metabolic encephalopathy secondary to hypercapnea 4. SCOTT 5. Obesity hypoventilation syndrome Plan - Continue on general medicine - Continue Prednisone taper - Continue Lasix 40mg IV BID - Monitor I/O, daily weights - Pulmonary consult - Continue home medications - Wound care consult - DVT Ppx
[2017-03-20 14:37] VITALS: BP 134/66
--- NOTE | 2017-03-20 19:21 | PN- Pulmonary ---
Subjective HPI/Critical Care Issues: Doing well afebrile Denies: no symptoms, see HPI, chills, diaphoresis, fever, malaise, weakness, unexplained weight loss. EENTM: Denies: no symptoms. Cardiovascular: Denies: no symptoms. Gastrointestinal: Denies: no symptoms. Genitourinary: Denies: no symptoms. Musculoskeletal: Denies: no symptoms. Skin: Denies: no symptoms. Neurological/Psychological: Denies: no symptoms. Objective Current Medications: Current Medications Sig/Luca Start time Last Medication Dose Route Stop Time Status Admin Acetazolamide 250 MG BID 03/20 2200 AC PO Albuterol Sulfate 3 ML BID 03/19 220 AC 03/20 INH 1723 Albuterol Sulfate 2 PUF Q4 PRN 03/19 0045 AC INH Budesonide/ 2 PUF BID 03/19 0036 AC 03/20 Formoterol Fumarate INH 0832 Furosemide 40 MG 7:30 AM, & 4:30 PM 03/19 1000 DC 03/20 IV 0501 Insulin Aspart 0 TIDAC PRN 03/19 0530 AC 03/19 SC 1151 Loratadine 10 MG DAILY 03/19 1000 AC 03/20 PO 0831 Methylprednisolone 40 MG Q12H 03/20 0400 DC 03/20 IV 0501 Nystatin 1 LB TID PRN 03/19 0315 AC 03/19 TOP 1149 Oxybutynin Chloride 10 MG QPM 03/19 2200 AC 03/19 PO 2145 Prednisone 40 MG DAILY 03/21 1000 AC PO Prednisone 40 MG DAILY 03/20 1000 DC PO Rivaroxaban 20 MG DAILY 03/20 1000 AC 03/20 PO 0831 Tiotropium [place] 1 PUF DAILY 03/19 1833 AC 03/20 INH 0830 Laboratory Tests 03/20 03/18 0525 2328 Chemistry Sodium (137 - 145 mmol/L) 140 139 Potassium (3.5 - 5.1 mmol/L) 4.4 4.3 Chloride (98 - 107 mmol/L) 91 L 97 L Carbon Dioxide (22 - 30 mmol/L) 43 H 38 H Anion Gap (5 - 16) 6 5 BUN (7 - 17 mg/dL) 15 11 Creatinine (0.5 - 1.0 mg/dL) 0.6 0.5 Estimated GFR (>60 ml/min) > 60 > 60 BUN/Creatinine Ratio (7 - 25 %) 25.0 22.0 Glucose (65 - 99 mg/dL) 113 H Calcium (8.4 - 10.2 mg/dL) 8.6 Phosphorus (2.5 - 4.5 mg/dL) 3.8 Magnesium (1.6 - 2.3 mg/dL) 2.0 Total Bilirubin (0.2 - 1.3 mg/dL) 0.5 AST (14 - 36 U/L) 17 ALT (9 - 52 U/L) 25 Alkaline Phosphatase (<127 U/L) 70 Troponin I (< 0.11 ng/ml) < 0.01 Total Protein (6.3 - 8.2 g/dL) 5.9 L Albumin (3.5 - 5.0 g/dL) 3.2 L Globulin (1.9 - 4.2 gm/dL) 2.7 Albumin/Globulin Ratio (1.1 - 2.2 %) 1.2 Hematology CBC w Diff MAN DIFF ORDERED WBC (4.8 - 10.8 /CUMM) 8.5 RBC (4.20 - 5.40 /CUMM) 4.96 Hgb (12.0 - 16.0 G/DL) 13.0 Hct (37 - 47 %) 41.5 MCV (81.0 - 99.0 FL) 83.6 MCH (27.0 - 31.0 PG) 26.1 L RDW (11.5 - 14.5 %) 18.1 H Plt Count (130 - 400 /CUMM) 181 MPV (7.4 - 10.4 FL) 7.8 Gran % (42.2 - 75.2 %) 88.4 H Lymphocytes % (20.5 - 51.1 %) 6.8 L Monocytes % (1.7 - 9.3 %) 2.9 Eosinophils % (0 - 5 %) 1.9 Basophils % (0.0 - 2.0 %) 0 L Absolute Granulocytes (1.4 - 6.5 /CUMM) 7.5 H Segmented Neutrophils (42.2 - 75.2 %) 89 H Band Neutrophils (0.0 - 5.0 %) 2 Absolute Lymphocytes (1.2 - 3.4 /CUMM) 0.6 L Lymphocytes (20.5 - 51.1 %) 5 L Monocytes (1.7 - 9.3 %) 3 Absolute Monocytes (0.10 - 0.60 /CUMM) 0.2 Eosinophils (0 - 5.0 %) 1 Absolute Eosinophils (0.0 - 0.7 /CUMM) 0.2 Absolute Basophils (0.0 - 0.2 /CUMM) 0 Platelet Estimate (ADEQUATE) ADEQUATE Polychromasia 1+ Hypochromic-Microcytic 1+ Poikilocytosis 1+ Ovalocytes 1+ Stomatocytes FEW PUBS MCHC (33.0 - 37.0 G/DL) 31.2 L Other Body Source Fld Total RBCs Counted (%) 100 Vital Signs & I&O Last 24 Hrs of Vitals and I&O: Vital Signs Date Time Temp Pulse Resp B/P B/P Pulse O2 O2 Flow FiO2 Mean Ox Delivery Rate 03/20 1729 93 Nasal 4.0L Cannula 03/20 1437 98.1 87 20 134/66 94 Nasal 4.0L Cannula 03/20 0808 96 Nasal 4.0L Cannula 03/20 0800 Nasal 4.0L Cannula 03/20 0704 98.3 74 20 140/74 96 Nasal Cannula 03/20 0011 81 92 03/20 0000 Nasal 4.0L Cannula 03/19 2335 98.3 91 20 118/62 93 03/19 2312 84 94 03/19 2125 92 Nasal 4.0L Cannula Intake & Output 03/20 1600 03/20 0800 03/20 0000 Intake Total 900 480 600 Output Total 600 Balance 900 -120 600 Intake, Oral 900 480 600 Output, Urine 600 Patient 289 lb Weight Weight Chair scale Measurement Method Impression/Plan Impression/Plan Impression/Plan: General Appearance Alert, Oriented X3, Cooperative, No Acute Distress (On 2L oxygen) HEENT Atraumatic, PERRLA, EOMI Neck Supple, trachea midline, no lymphadenopathy Cardiovascular Regular Rate, Normal S1, Normal S2, No Murmurs, cap refill <2 seconds Lungs Clear to Auscultation, reduced air movement Abdomen Soft, No Tenderness, unable to examine for heptosplenomegaly due to body habitus Neurological Normal Speech, Cranial Nerves 3-12 NL Extremities No Edema, Normal Pulses, No Tenderness/Swelling IMPRESSION This is a lady with very severe morbid obesity, chronic hypercarbic respiratory failure with severe obstructive sleep apnea with obesity hypoventilation syndrome, mild asthma, chronic venostasis with lower extremity chronic cellulitis, remote history of extensive pulmonary embolism involving the right pulmonary artery in 2009 since then multiple CTs have been negative for any venous thromboembolism patient is on xeralto for prevention of venous thromboembolism now has * Resolving hypoxia with chronic respiratory hypercarbic failure related to worsening obesity hypoventilation syndrome which is complicated by, mild asthma exacerbation with hypoventilation with noncompliance as outpatient with CPAP * Corpulmonale with fluid overload improving now on lasix, pt has rt heart dysfunction * Mild persistant asthma with exacerbation now better, no sig worsening * Previous history of significant pulmonary embolism now on appropriate anticoagulation for prevention * Severe morbid obesity with bedtime hypoxia, pt supposed to be on oxygen at hs with cpap but she is not compliant * No significant evidence suggestive of active pneumonitis or bacterial infection * Chronic pain syndrome * Lower extremity edema with chronic venous insufficiency with intertrigo on medications but appears better than her previous admission REC Po steroids and taper Rapidly, prednisone 40 and down to off in few days CPAP wih oxygen daily and pt is aware to use it Continue inhalers use Symbicort as she was on Advair at home 2 puffs twice a day Continue anticoagulation Increase activity COnt diuresis iv lasix prn Add spiriva qd GIve diamox today one or two doses keep potassium more than 4 Pt counselled about cpap use Low carb diet Prob dc in am
[2017-03-20 22:02] VITALS: BP 128/58
[2017-03-21 06:35] VITALS: BP 96/70
--- NOTE | 2017-03-21 08:04 | PN- Housestaff ---
See Addendum Subjective Follow-up For: Asthma Exacerbation SCOTT Subjective: I have personally seen and examine dthe patient this morning. She reports some headache at the time, recieved tylenol. Otherwise doing fine. No overnight events. Denies any fever, chills, nausea, vomiting, dizziness or Chest pain. Review of Systems Constitutional: Denies: no symptoms. EENTM: Denies: no symptoms. Cardiovascular: Denies: no symptoms. Gastrointestinal: Denies: no symptoms. Genitourinary: Denies: no symptoms. Musculoskeletal: Denies: no symptoms. Skin: Denies: no symptoms. Neurological/Psychological: Denies: no symptoms. Hematologic/Endocrine: Denies: no symptoms. Immunologic/Allergic: Denies: no symptoms. Objective Last 24 Hrs of Vital Signs/I&O Vital Signs Date Time Temp Pulse Resp B/P B/P Pulse O2 O2 Flow FiO2 Mean Ox Delivery Rate 03/21 0635 98.2 76 20 96/70 92 CPAP 03/21 0011 84 94 03/21 0000 Nasal 4.0L Cannula 03/20 2251 81 97 03/20 2202 98.3 76 18 128/58 93 Nasal 3.0L Cannula 03/20 1729 93 Nasal 4.0L Cannula 03/20 1437 98.1 87 20 134/66 94 Nasal 4.0L Cannula Intake & Output 03/21 1600 03/21 0800 03/21 0000 Intake Total 240 480 Output Total 700 350 Balance -460 130 Intake, Oral 240 480 Output, Urine 700 350 Physical Exam General Appearance: Alert, Oriented X3, Cooperative Skin: No Rashes, No Breakdown Skin Temp/Moisture Exam: Warm/Dry HEENT: Atraumatic, PERRLA, EOMI, Mucous Membr. 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 Problem List: 1. SOB (shortness of breath) Most likely asthma exacerbation.Other things on our differential incloude COPD and CHF. However her chest x-ray did not show any increased lung volumes. She has not been formally diagnosed with COPD. On exam she did not have any swelling which would put CHF lower on our differential. Although she did go out on her birthday on Sunday may have had some salty food. Alcohol is also a diuresis and is not associated with causing chf exascerbation. . -follow [facility] recommendations -On 3.L oxygen by nasal canula. Uses CPAP at night. -continue claritin 10 mg po BID -Discontinue IV methyprednisolone. Prednisone taper from tomorrow. (40 mg 03/21- , 30mg 03/23-03/24, 20mg 03/25-03/26, 10mg 03/27-03/28). -Discontinue furosemide and change to diamox 250mg BID (HCO3 > 40)as per pulmonology recommendations. -continue ventolin 2 puffs every 4 hours prn SOB, continue proventil 3 mL inhalation every 4 hours prn SOB, -continue symbalta 2 puff BID -Spiriva qd -heart healthy diet, limit sodium to <2g/day 2. Diabetes Patient reports a history of type 2 diabetes. She is not taking any oral hypoglycemics. We will continue to monitor her blood sugars evaluate the need for. Her blood glucose was 113. -Monitor blood sugars and evaluate need for sliding scale if sugars > 200 3. History of pulmonary embolus (PE) Assessment/Plan The patient has a history of a right DVT, multiple DVTs, and pulmonary emboli. We will continue her on her home dose of rivaroxaban -continue rivaroxaban 20 mg po daily 4. Bladder prolapse Assessment/Plan Patient states she has a history of prolapse and was previously taking Solifenacin for overactive bladder. We will starther on oxybutnin 10 mg po instead. 5. DVT prophylaxis Assessment/Plan Continue Xarelto 6. Full code status Problem List: 1. Hypercapnic respiratory failure 2. Asthma exacerbation 3. SCOTT on CPAP 4. Diabetes 5. History of pulmonary embolus (PE) 6. Bladder prolapse Pain Ratin Pain Location: None Pain Goal: Remain pain free Pain Plan: None Tomorrow's Labs & Rationales: BEP(On Diamox),
[2017-03-21 08:09] LABS: ABSOLUTE BASOPHIL COUNT 0 /CUMM (0.0-0.2); ABSOLUTE EOSINOPHIL COUNT 0 /CUMM (0.0-0.7); ABSOLUTE GRANULOCYTE CT 7.1 /CUMM (1.4-6.5); ABSOLUTE MONOCYTE COUNT 0.9 /CUMM (0.10-0.60); BASOPHIL % 0.2 % (0.0-2.0); EOSINOPHIL % 0.3 % (0-5); GRANULOCYTE % 70.7 % (42.2-75.2); HEMATOCRIT 42.7 % (37-47); MEAN CORPUSCULAR HGB 26.3 PG (27.0-31.0); MEAN CORPUSCULAR HGB CONC 30.9 G/DL (33.0-37.0); MEAN CORPUSCULAR VOLUME 85.1 FL (81.0-99.0); MEAN PLATELET VOLUME 7.4 FL (7.4-10.4); PLATELET COUNT 193 /CUMM (130-400); RBC DISTRIBUTION WIDTH 17.9 % (11.5-14.5); RED BLOOD CELL CT 5.03 /CUMM (4.20-5.40); WHITE BLOOD CELL COUNT 10.1 /CUMM (4.8-10.8)
[2017-03-21] MEDS ORDERED: PREDNISONE10 M2 PO ×3 (12:23→13:33)
--- NOTE | 2017-03-21 12:25 | Patient Discharge Instructions ---
Discharge Instructions General Discharge Information You were seen/treated for: COPD exacerbation Acute hypoxic respiratory failure (low oxygen saturation with acute shortness of breath more than normal) Mild fluid overload Watch for these problems: Fevers, chills Chest pain, shortness of breath, productive cough Special Instructions: Please take all medications as directed. Please follow-up with your PCP within 1-2 weeks after discharge. Diet Recommended Diet: Diabetic, Heart Healthy Activity Activity Self Limited: Yes Acute Coronary Syndrome Inclusion Criteria At DC or during hospital stay patient has or had the following: ACS DIAGNOSIS No Discharge Core Measures Meds if any: Prescribed or Continued at Discharge Meds if any: NOT Prescribed or Continued at Discharge Congestive Heart Failure Inclusion Criteria At DC or during hospital stay patient has or had the following: CHF DIAGNOSIS No Discharge Core Measures Meds if any: Prescribed or Continued at Discharge Meds if any: NOT Prescribed or Continued at Discharge Cerebrovascular accident Inclusion Criteria At DC or during hospital stay patient has or had the following: CVA/TIA Diagnosis No Discharge Core Measures Meds if any: Prescribed or Continued at Discharge Meds if any: NOT Prescribed or Continued at Discharge Venous thromboembolism Inclusion Criteria VTE Diagnosis No VTE Type NONE VTE Confirmed by (Test) NONE Discharge Core Measures - Per Current guidelines, there needs to be overlap - treatment for the first 5 days of Warfarin therapy. - If discharged on Warfarin prior to 5 days of - overlap therapy, the patient will need to be - assessed for post discharge needs including - *Post discharge parental anticoagulation - *Warfarin and/or parental anticoagulation education - *Follow up date to check INR post discharge At least 5 days overlap therapy as Inpatient No Meds if any: Prescribed or Continued at Discharge Note: Overlap Therapy is Warfarin and Anticoagulant Meds if any: NOT Prescribed or Continued at Discharge
--- NOTE | 2017-03-21 14:07 | NUR ---
NURSING NOTE: PATIENT LEFT FLOOR VIA W/C WITH DISTRIBUTION FOR PROCESS MOLD TECHNICIAN APPOINTMENT. PATIENT ON 2L VIA NC. DENIES PAIN AT THIS TIME. WILL AWAIT RETURN.
--- NOTE | 2017-03-21 17:15 | NUR ---
NURSING NOTE: UNABLE TO FINALIZE DISCHARGE PAPERWORK. RESIDENT 188 CONFERRED WITH. RESIDENT STATES HE IS AWARE OF THE PROBLEM AND SPOKE WITH IT. IT EXPLAINED THAT THIS IS A GLITCH WITH THE [employer] SYSTEM THAT NEEDS TO BE CLEARED BY [employer]. NON-FINALIZED DISCHARGE PAPERWORK PRINTED AND GIVEN TO PATIENT ALONG WITH SECOND COPY PLACED IN PATIENT'S CHART.
--- NOTE | 2017-03-21 21:43 | PN- Pulmonary ---
Subjective HPI/Critical Care Issues: She reports some headache at the time, recieved tylenol. Otherwise doing fine. No overnight events. Denies any fever, chills, nausea, vomiting, dizziness or Chest pain. Review of Systems Constitutional: Denies: no symptoms. EENTM: Denies: no symptoms. Cardiovascular: Denies: no symptoms. Gastrointestinal: Denies: no symptoms. Genitourinary: Denies: no symptoms. Musculoskeletal: Denies: no symptoms. Skin: Denies: no symptoms. Neurological/Psychological: Denies: no symptoms. Hematologic/Endocrine: Denies: no symptoms. Immunologic/Allergic: Denies: no symptoms. Objective Current Medications: Current Medications Sig/Luca Start time Last Medication Dose Route Stop Time Status Admin Acetaminophen 650 MG .STK-MED ONE 03/21 0447 DC PO 03/21 0448 Acetaminophen 650 MG ONCE ONE 03/20 2330 DC 03/21 PO 03/20 2331 0447 Acetazolamide 250 MG BID 03/20 2200 DC 03/21 PO 0924 Albuterol Sulfate 3 ML BID 03/19 2200 DCD 03/21 INH 1111 Albuterol Sulfate 2 PUF Q4 PRN 03/19 0045 DCD INH Budesonide/ 2 PUF BID 03/19 0036 DCD 03/21 Formoterol Fumarate INH 0924 Furosemide 40 MG 7:30 AM, & 4:30 PM 03/21 1630 DCD IV Insulin Aspart 0 TIDAC PRN 03/19 0530 DCD 03/19 SC 1151 Loratadine 10 MG DAILY 03/19 1000 DCD 03/21 PO 0923 Nystatin 1 LB TID PRN 03/19 0315 DCD 03/19 TOP 1149 Oxybutynin Chloride 10 MG QPM 03/19 2200 DCD 03/20 PO 2227 Patient Medication 1 ED .STK-MED ONE 03/21 1435 DC Teaching ED 03/21 1436 Prednisone 40 MG DAILY 03/21 1000 DCD 03/21 PO 0924 Rivaroxaban 20 MG DAILY 03/20 1000 DCD 03/21 PO 0923 Sodium Chloride 2 SPRAY ONCE ONE 03/21 0500 DC 03/21 BLADIMIR 03/21 0501 0924 Tiotropium [place] 1 PUF DAILY 03/19 1833 DCD 03/21 INH 0924 Vital Signs & I&O Last 24 Hrs of Vitals and I&O: Vital Signs Date Time Temp Pulse Resp B/P B/P Pulse O2 O2 Flow FiO2 Mean Ox Delivery Rate 03/21 1119 94 Nasal 2.0L Cannula 03/21 0800 95 Nasal 2.0L Cannula 03/21 0635 98.2 76 20 96/70 92 CPAP 03/21 0011 84 94 03/21 0000 Nasal 4.0L Cannula 03/20 2251 81 97 03/20 2202 98.3 76 18 128/58 93 Nasal 3.0L Cannula Intake & Output 03/21 1600 03/21 0800 03/21 0000 Intake Total 1200 240 480 Output Total 700 350 Balance 1200 -460 130 Intake, Oral 1200 240 480 Output, Urine 700 350 Patient 289 lb Weight Impression/Plan Impression/Plan Impression/Plan: General Appearance Alert, Oriented X3, Cooperative, No Acute Distress (On 2L oxygen) HEENT Atraumatic, PERRLA, EOMI Neck Supple, trachea midline, no lymphadenopathy Cardiovascular Regular Rate, Normal S1, Normal S2, No Murmurs, cap refill <2 seconds Lungs Clear to Auscultation, reduced air movement Abdomen Soft, No Tenderness, unable to examine for heptosplenomegaly due to body habitus Neurological Normal Speech, Cranial Nerves 3-12 NL Extremities No Edema, Normal Pulses, No Tenderness/Swelling IMPRESSION This is a lady with very severe morbid obesity, chronic hypercarbic respiratory failure with severe obstructive sleep apnea with obesity hypoventilation syndrome, mild asthma, chronic venostasis with lower extremity chronic cellulitis, remote history of extensive pulmonary embolism involving the right pulmonary artery in 2009 since then multiple CTs have been negative for any venous thromboembolism patient is on xeralto for prevention of venous thromboembolism now has * Resolving hypoxia with chronic respiratory hypercarbic failure related to worsening obesity hypoventilation syndrome which is complicated by, mild asthma exacerbation with hypoventilation with noncompliance as outpatient with CPAP * Corpulmonale with fluid overload improving now on lasix, pt has rt heart dysfunction * Mild persistant asthma with exacerbation now better, no sig worsening * Previous history of significant pulmonary embolism now on appropriate anticoagulation for prevention * Severe morbid obesity with bedtime hypoxia, pt supposed to be on oxygen at hs with cpap but she is not compliant * No significant evidence suggestive of active pneumonitis or bacterial infection * Chronic pain syndrome * Lower extremity edema with chronic venous insufficiency with intertrigo on medications but appears better than her previous admission REC Prednisone 40 and down to off in few days CPAP wih oxygen daily and pt is aware to use it Continue inhalers use Symbicort as she was on Advair at home 2 puffs twice a day Continue anticoagulation Increase activity COnt diuresis iv lasix prn Add spiriva qd GIve diamox today one or two doses keep potassium more than 4 Pt counselled about cpap use Low carb diet ok to dc and follow up with her previous pulm md
== END 2017-03-21 18:00 | DRG 189 ==
LOC: ERH 20:08 → 2NB 23:34 → ERHI 23:34 → ENRESERV 03-19 00:22 → 2NB 03-19 01:02 → ENPENDDIS 03-21 13:35 → 2NB 03-21 18:00
PROVIDERS: Internal Medicine; Pediatrics; ADMIT Internal Medicine
PROC: 5A09357 Assistance with Respiratory Ventilation, Less than 24 Consecutive Hours, Continuous Positive Airway Pressure (ICD-10-PCS; principal; 2017-03-18)
DX: J96.21 Acute and chronic respiratory failure with hypoxia (principal); G93.41 Metabolic encephalopathy; I27.81 Cor pulmonale (chronic); E66.2 Morbid (severe) obesity with alveolar hypoventilation; Z68.44 Body mass index [BMI] 60.0-69.9, adult; J45.31 Mild persistent asthma with (acute) exacerbation; I10 Essential (primary) hypertension; E11.9 Type 2 diabetes mellitus without complications; J96.22 Acute and chronic respiratory failure with hypercapnia; E03.9 Hypothyroidism, unspecified; K21.9 Gastro-esophageal reflux disease without esophagitis; N81.10 Cystocele, unspecified; N32.81 Overactive bladder; G89.4 Chronic pain syndrome; I87.2 Venous insufficiency (chronic) (peripheral); L30.4 Erythema intertrigo; Z86.711 Personal history of pulmonary embolism; Z86.718 Personal history of other venous thrombosis and embolism; Z87.891 Personal history of nicotine dependence
CPT/HCPCS: 2NBP; ERO; 36415; 82436; 93005; 93010; J1940; J2920; J3490

== ENCOUNTER 2017-12-23 16:07 | Emergency (ER) | payer OTHER ==
[~2017-12-23] VITALS: Ht 142.2 cm; Wt 176.9 kg
[~2017-12-23 16:07] MED LIST changes: +ADVIL200 M1 PO; +MECLIZINE HCL25 MG PO; +NYSTOP60 GM TOP; +PREDNISONE50 M1 PO; +XOPENEX0.63 MG/1 INH/SOL; +ZOFRAN ODT4 M1 SL
[2017-12-23 16:46] LABS: ABSOLUTE BASOPHIL COUNT 0 /CUMM (0.0-0.2); ABSOLUTE EOSINOPHIL COUNT 0.3 /CUMM (0.0-0.7); ABSOLUTE GRANULOCYTE CT 4.3 /CUMM (1.4-6.5); ABSOLUTE LYMPH COUNT 1.3 /CUMM (1.2-3.4); ABSOLUTE MONOCYTE COUNT 0.6 /CUMM (0.10-0.60); BASOPHIL % 0.4 % (0.0-2.0); EOSINOPHIL % 4.6 % (0-5); GRANULOCYTE % 66.3 % (42.2-75.2); HEMATOCRIT 41.9 % (37-47); MEAN CORPUSCULAR HGB 28.4 PG (27.0-31.0); MEAN CORPUSCULAR HGB CONC 32.8 G/DL (33.0-37.0); MEAN CORPUSCULAR VOLUME 86.4 FL (81.0-99.0); MEAN PLATELET VOLUME 7.2 FL (7.4-10.4); PLATELET COUNT 228 /CUMM (130-400); RBC DISTRIBUTION WIDTH 14.1 % (11.5-14.5); RED BLOOD CELL CT 4.85 /CUMM (4.20-5.40); WHITE BLOOD CELL COUNT 6.5 /CUMM (4.8-10.8)
--- NOTE | 2017-12-23 17:56 | ED CARDIAC/CP/PALPITATIONS ---
History of Present Illness General Chief Complaint: Chest Pain Stated Complaint: CHEST PAIN, SOB,SWOLLEN LEGS Source: patient, old records Exam Limitations: no limitations Vital Signs & Intake/Output Vital Signs & Intake/Output Vital Signs Date Time Temp Pulse Resp B/P B/P Pulse O2 O2 Flow FiO2 Mean Ox Delivery Rate 12/23 1857 98.1 96 20 130/73 98 Room Air 12/23 1615 97.2 106 18 120/83 91 Room Air Allergies Coded Allergies: cat dander (Severe, DYSPNEA 07/17/16) dog dander (DYSPNEA 07/17/16) grass pollen (DIFFICULTY BREATHING 07/17/16) mold (DYSPNEA 07/17/16) ragweed pollen (DYSPNEA 07/17/16) tree and shrub pollen (DIFFICULTY BREATHING 07/17/16) amoxicillin (From Augmentin) (ITCHY 07/17/16) ampicillin (LOW GRADE FEVER 07/17/16) cephalexin (From KEFLEX) (VOMITING 07/17/16) clavulanic acid (From Augmentin) (ITCHY 07/17/16) isoetharine (HEART RATE ELEVATION 07/17/16) Reconcile Medications Albuterol Sulfate (Proventil Hfa) 90 MCG HFA.AER.AD 2 PUF INH Q4 PRN SOB ( Reported) Albuterol Sulfate 2.5 MG/3 ML (0.083 %) VIAL.NEB 1 Vial INH/BRANDON Q4P PRN SOB ( Reported) Cyclobenzaprine HCl 5 MG TABLET 1 TAB PO TIDPRN PRN pain Fluticasone/Salmeterol (Advair 500-50 Diskus) 500 MCG-50 MCG/DOSE BLST.W.DEV 1 PUF INH BID ASTHMA (Reported) Furosemide (Lasix) 40 MG TABLET 1 TAB PO QAM DIURETIC (Reported) Furosemide (Lasix) 20 MG TABLET 1 TAB PO QPM DIURETIC (Reported) Ibuprofen (Advil) 200 MG CAPSULE 3 CAP PO PRN PAIN/INFLAMMATION (Reported) Ibuprofen 800 MG TABLET 1 TAB PO TID pain Levalbuterol HCl (Xopenex) 0.63 MG/3 ML VIAL.NEB 1 Vial INH/BRANDON Q4H PRN ASTHMA (Reported) Loratadine (Claritin) 10 MG TABLET 1 TAB PO DAILY ALLERGIES (Reported) Meclizine HCl 25 MG TABLET 1 TAB PO TIDPRN DIZZINESS Nystatin (Nystop) 100,000 UNIT/GRAM POWDER 1 LB TOP BID SKIN (Reported) Ondansetron (Zofran Odt) 4 MG TAB.RAPDIS 1 TAB SL TID NAUSEA Prednisone 50 MG TABLET 1 TAB PO DAILY asthma Rivaroxaban (Xarelto) 20 MG TABLET 1 TAB PO QPM BLOOD THINNER (Reported) with food Solifenacin Succinate (Vesicare) 10 MG TABLET 1 TAB PO DAILY BLADDER ( Reported) Triage Note: PT C/O CHEST PAIN THAT RADIATES DOWN HER LEFT ARM PT STATES THE PAIN BEGAN 4 DAYS AGO BUT THE PAIN IS NOW GETTING WORSE. PT STATES NOTHING IS HELPING HER OUT. Triage Nurses Notes Reviewed? yes Onset: Abrupt Duration: week(s): (1), constant Timing: recent history Quality/Severity: mild, aching Location: central Radiation: shoulders, back Activities at Onset: none Associated Symptoms: denies HPI: 47 -year-old female past history of asthma, obstructive sleep apnea on CPAP, hypertension, diabetes, GERD, pulmonary embolism, and DVT of left lower extremity s/p IVC filter presents to ER for evaluation stating that for the past week she's had left-sided chest wall pain related to the center of her chest that is worse with palpation and movement of her shoulder. The patient states that she was recently seen by her primary care physician because she was having upper back pain and left shoulder pain which she had an x-ray performed was diagnosed with arthritis. The symptoms are improved with palpation and when she got a massage. She states for the past week she is now beginning to have the pain radiates to her chest. There is no shortness of breath no cough fever chills. She's been taking ibuprofen for the pain however states she is requesting a muscle relaxer. No dizziness lightheadedness no recent trauma or injury. Past History Travel History Traveled to [place] past 21 day No Medical History Any Pertinent Medical History? 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: bladder prolapse Other Medical Hx: cellulitis History of MRSA: No History of VRE: No History of CDIFF: No Surgical History Surgical History: open reduction and internal fixation of right tibia fracture cholycystectomy of son tonsil and adenoidectomy umbilical hernia surgery Psychosocial History Who do you live with Patient and family Services at Home [facility] What is your primary language Albanian Tobacco Use: Quit >30 days ago ETOH Use: occasional use Illicit Drug Use: denies illicit drug use Family History Family History, If Any: MOTHER FH: asthma FATHER FH: COPD (chronic obstructive pulmonary disease) FH: lung cancer FH: prostate cancer BROTHER Relation not specified for: FH: celiac disease FH: coronary artery disease FH: kidney disease Hx Contributory? No Review of Systems Review of Systems Constitutional: Reports: see HPI. Comments Review of systems: See HPI, All other systems negative. Constitutional, no chills no fever, HEENT: no sore throat no congestion Cardiovascular: chest pain Skin: no rashes, no change in skin Respiratory: No dyspnea no cough no sputum GI: No nausea no vomiting, no diarrhea, Muscle skeletal: No joint pain, no back pain Heme/endocrine: No bruising Immunology: No lymphadenopathy Physical Exam Physical Exam General Appearance: well developed/nourished, alert, awake Cardiovascular: regular rate/rhythm Comments: Well-developed well-nourished person in no acute distress HEENT: Normal EENT exam; PERRL, EOMI, no nystagmus. HEAD is atraumatic. moist mucous membranes. Neck: Supple, normal range of motion without pain or tenderness Back: Bilateral perimuscular tenderness O patient of the upper back no midline tenderness no CVA tenderness. Full range of motion Cardiovascular: Regular rate and rhythms no murmurs rubs or gallops, normal JVP Respiratory: Chest tender.There were no bony deformities, no asymmetry. No respiratory distress. Patient speaking in full complete sentences. Breath sounds clear to auscultation bilaterally: NO W/R/R Abdomen: Soft,obese, nontender Extremity chest soreness is reproducible range of motion of the left shoulder: No edema, full range of motion of extremities, normal and equal pulses bilaterally, 5 out of 5 strength noted to bilateral upper and lower extremities Neuro: Alert oriented x3, motor sensory normal, There were no obvious focal neurologic abnormalities. Skin: No appreciable rash on exposed skin, skin is warm and dry. Psych: Mood and affect is normal, memory and judgment is normal. Core Measures ACS in differential dx? Yes CVA/TIA Diagnosis No Sepsis Present: No Sepsis Focused Exam Completed? No Progress Differential Diagnosis: AMI, atrial fibrillation, costochondritis, myocarditis, pancreatitis, pericarditis, pneumonia, pneumothorax, unstable angina, chest wall strain Plan of Care: Orders Procedure Date/time Status TROPONIN LEVEL 12/23 161 Complete COMPREHENSIVE METABOLIC PANEL 12/23 161 Complete CBC WITHOUT DIFFERENTIAL 12/23 161 Complete B-TYPE NATRIURETIC PEP (BNP) 12/23 161 Complete EKG 12/23 1608 Active Laboratory Tests 12/23/17 1633: Anion Gap 7, Estimated GFR > 60, BUN/Creatinine Ratio 26.0 H, Glucose 88, Calcium 8.5, Total Bilirubin 0.4, AST 20, ALT 34, Alkaline Phosphatase 76, Troponin I < 0.01, Edv-T-Mdgisgvtpyv Pept 59.8, Total Protein 6.2 L, Albumin 3.6, Globulin 2.6, Albumin/Globulin Ratio 1.4, CBC w Diff NO MAN DIFF REQ, RBC 4.85, MCV 86.4, MCH 28.4, MCHC 32.8 L, RDW 14.1, MPV 7.2 L, Gran % 66.3, Lymphocytes % 19.6 L, Monocytes % 9.1, Eosinophils % 4.6, Basophils % 0.4, Absolute Granulocytes 4.3, Absolute Lymphocytes 1.3, Absolute Monocytes 0.6, Absolute Eosinophils 0.3, Absolute Basophils 0 Discussed with the patient plan of care her pain is reproducible in her chest is been present for over a week, pain is also reproducible range of motion of the left shoulder, I do not believe the patient requires further workup at this time despite her history she reports the symptoms have been improving with ibuprofen at home we'll send her home with a prescription for Flexeril. 1900 patient resting in no acute distress at this time I discussed with her her x-ray findings she'll follow-up with her primary care physician tomorrow. Return precautions were discussed at length. Diagnostic Imaging: Viewed by Me: Radiology Read. Discussed w/RAD: Radiology Read. Radiology Impression: PATIENT: JERRELL RUDD PRESENT AGE: 47 PATIENT ACCOUNT NO: [id number] : 68 LOCATION: [facility] ORDERING PHYSICIAN: Nick SALMERON SERVICE DATE: 12/23/17 EXAM TYPE: RAD - XRY- CHEST XRAY, TWO VIEWS EXAMINATION: XR CHEST CLINICAL INFORMATION: Pneumonia, dyspnea COMPARISON: Prior chest x-rays, the most recent on 08/01/2017 TECHNIQUE: 2 views of the chest were obtained. FINDINGS: Hypoventilatory exam. The cardiomediastinal silhouette is stable. Mild cardiomegaly. Mild pulmonary venous congestion noted. No definite pulmonary edema. No sizable pleural effusion. No pneumothorax. The visualized bones are unremarkable. IMPRESSION: Mild pulmonary venous congestion without overt pulmonary edema. No focal pulmonary consolidation. 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 <Electronically signed in Other Vendor System> SIGNED BY: Neeraj Gao MD 12/23/171853 Initial ED EKG: none Departure Departure Time of Disposition: 1806 Disposition: HOME OR SELF CARE Condition: Stable Clinical Impression Primary Impression: Chest wall pain Referrals: Dolly Lawson DO (PCP/Family) Manuelito Baptiste DO Additional Instructions: Follow-up with your primary care physician this week. Tylenol Motrin for pain. Flexeril as directed. Follow-up with surgeon Dr. baptiste as discussed. Departure Forms: Customer Survey General Discharge Information Prescriptions: Current Visit Scripts Cyclobenzaprine HCl 1 TAB PO TIDPRN PRN pain #12 TAB Ibuprofen 1 TAB PO TID #30 TAB Critical Care Note Critical Care Note Critical Care Time: non-applicable
[2017-12-23] MEDS ORDERED: CYCLOBENZAPRINE5 M2 PO (18:08)
--- NOTE | 2017-12-23 18:54 | RADIOLOGY REPORT ---
EXAMINATION: XR CHEST CLINICAL INFORMATION: Pneumonia, dyspnea COMPARISON: Prior chest x-rays, the most recent on 08/01/2017 TECHNIQUE: 2 views of the chest were obtained. FINDINGS: Hypoventilatory exam. The cardiomediastinal silhouette is stable. Mild cardiomegaly. Mild pulmonary venous congestion noted. No definite pulmonary edema. No sizable pleural effusion. No pneumothorax. The visualized bones are unremarkable. IMPRESSION: Mild pulmonary venous congestion without overt pulmonary edema. No focal pulmonary consolidation.
[2017-12-23 18:57] VITALS: BP 130/73
[2017-12-23] MEDS ORDERED: IBUPROFEN800 M1 PO (19:10)
== END 2017-12-23 19:15 ==
LOC: ERH 16:07
PROVIDERS: Physician Assistant Medical
DX: R07.89 Other chest pain (principal)
CPT/HCPCS: 71046; 93005; 93010